=== PATIENT | male | born 1945 | race Caucasian/White ===

== ENCOUNTER → 2019-09-10 | Outpatient (CLI) | payer OTHER | LOC: M RAD 07:28 | PROVIDERS: ATTEND Internal Medicine | DX: M54.5 Low back pain (principal) ==

== ENCOUNTER → 2019-11-01 | Outpatient (CLI) | payer OTHER ==
--- NOTE | 2019-11-02 06:49 | REP ---
MRI lumbar spine without contrast: History: Low back pain. Progressively worse. No comparison lumbar imaging. Technique: Sagittal and axial T1 and T2-weighted scans are acquired in the usual fashion with and without fat saturation. Sequences include spin echo, turbo spin-echo, and STIR imaging sequences. MRI findings: There is a levoconvex scoliotic curve. A normal caliber aorta is noted although it is tortuous. There is an incompletely visualized cystic lesion in the left ovary 4.9 cm in greatest diameter. No other extra spinal abnormality is seen. The tip of the conus medullaris appears to be at T12-L1 and it is normal in appearance. There is diffuse degenerative spondylosis, fairly advanced. Sagittal images at T12-L1 demonstrate diffuse disc bulging including the foraminal segments of both discs. There is neural foraminal narrowing on the right. Disc bulging is noted at the top of the imaging field of view at T11-12 as well. At L1-L2, axial and sagittal images demonstrate moderate to severe central canal stenosis due to diffuse disc bulging, ligamentum flavum hypertrophy, facet hypertrophy, and developmentally short pedicles. The midline AP dimension of the thecal sac at the L1-2 disc level is 4.8 mm. CSF signal is effaced from the thecal sac at the L1-2 disc level. There is neural foraminal narrowing on the right due to facet hypertrophy and disc bulging. At the L2-L3, axial and sagittal images demonstrate severe central canal stenosis present due to diffuse moderate disc bulging, osteophytic ridging, facet and ligamentum flavum hypertrophy and somewhat short pedicles developmentally. The mid line AP dimension of the thecal sac at this level is 7 mm. There is considerable [id number] narrowing of the thecal sac due to ligamentum flavum hypertrophy and facet hypertrophy. This is more pronounced on the right. There is right-sided foraminal narrowing at L2-3 as well. The cauda equina is buckled above the L2-3 disc level. At L3-L4, there is severe central canal stenosis due to large bulging posterior disc and associated osteophyte formation in combination with ligamentum flavum and facet hypertrophy. The ligamentum flavum and facet hypertrophy are more prominent on the right. CSF signal is completely effaced from the thecal sac. The AP dimension in the midline of the thecal sac is 4.5 mm. There is mild bilateral foraminal narrowing. At L4-5, there is severe central canal stenosis. This is due to posterior osteophytic ridging and disc bulging in combination with facet and ligamentum flavum hypertrophy. Midline AP dimension of the thecal sac at this level is 4.2 mm. There is bilateral foraminal narrowing, left greater than right due to facet hypertrophy and disc bulging. At L5-S1, there is moderate osteoarthritic facet hypertrophy bilaterally. Mild bilateral neural foraminal narrowing is seen. Disc bulging is seen but no central canal stenosis is noted. Impression: Advanced degenerative spondylosis. There is severe central canal stenosis at each level from L2-3 through L4-5. Moderate L1-2 central canal stenosis is noted. Multilevel neural foraminal narrowing is seen, more pronounced on the right at several levels. Electronically Signed by Chris Logan MD 11/02/2019 07:48 A
== END ==
LOC: M RAD 12:43
PROVIDERS: ATTEND Internal Medicine
DX: M54.5 Low back pain (principal)

== ENCOUNTER 2021-01-13 12:15 | Inpatient (IN) | payer MEDICARE ==
[~2021-01-13] VITALS: Ht 190.5 cm; Wt 129.4 kg
[2021-01-13 13:10] LABS: BASO # 0.1 10^3/uL (0.0-0.2); BASO % 0.3 % (0.0-1.0); HEMATOCRIT 54.6 % (42.0-52.0); HEMOGLOBIN 17.9 g/dl (13.5-17.5); LYMPH % 4.4 % (24.0-44.0); MEAN CORPUSCULAR HEMOGLOBIN 30.8 pg (27.0-33.0); MEAN CORPUSCULAR HGB CONC 32.8 g/dl (32.0-36.5); MONO # 1.4 10^3/uL (0.0-0.8); MONO % 5.9 % (2.0-8.0); NEUTROPHILS # 20.5 10^3/uL (1.5-8.5); NEUTROPHILS % 88.7 % (36.0-66.0); PLATELET COUNT, AUTOMATED 342 10^3/uL (150-450); RED BLOOD COUNT 5.81 10^6/uL (4.30-6.10); WHITE BLOOD COUNT 23.1 10^3/uL (4.0-10.0)
[2021-01-13] MEDS ORDERED: NS 1,000 ML IV ONE (13:35)
[2021-01-13] MEDS ORDERED: fentaNYL 100 MCG/2 ML INJECTION (J3010) IV PRN (13:35)
[2021-01-13] MEDS ORDERED: ONDANSETRON 4MG/2ML VIAL IV ONE (13:35)
[2021-01-13 13:39] LABS: ALBUMIN 4.3 GM/DL (3.2-5.2); ALT/SGPT 35 U/L (12-78); BILIRUBIN,DIRECT 0.3 MG/DL (0.0-0.2); BILIRUBIN,TOTAL 0.8 MG/DL (0.2-1.0); BLOOD UREA NITROGEN 40 MG/DL (7-18); CALCIUM LEVEL 9.4 MG/DL (8.8-10.2); CARBON DIOXIDE LEVEL 23 MEQ/L (21-32); CHLORIDE LEVEL 106 MEQ/L (98-107); GLOMERULAR FILTRATION RATE 57.1 (>42); GLUCOSE, FASTING 140 MG/DL (70-100); LIPASE 43 U/L (73-393); POTASSIUM SERUM 5.7 MEQ/L (3.5-5.1); SODIUM LEVEL 138 MEQ/L (136-145); TOTAL PROTEIN 8.2 GM/DL (6.4-8.2)
[2021-01-13] MEDS ORDERED: ISOVUE-370 76% 100ML VIAL As Ordered ONE (13:40)
[2021-01-13] MEDS ORDERED: PIPERACILLIN/TAZOBACTAM SOD 4.5 GM in D5W MINI-BAG PLUS 50 ML IV ONE (13:45)
--- NOTE | 2021-01-13 13:46 | REP ---
INDICATION: ABD PAIN. COMPARISON: None. TECHNIQUE: Single portable AP view of the chest was performed. FINDINGS: There are mild bibasilar parenchymal opacities representing infiltrate or fibro atelectatic change. There is blunting of the costophrenic angles representing mild pleural fluid or thickening. The heart is at the upper limits of normal in size. Mild calcification of the thoracic aorta. The mediastinal silhouette otherwise appears unremarkable. IMPRESSION: Mild bibasilar infiltrate or fibro atelectatic change. Mild bilateral pleural fluid or thickening. <Electronically signed by Fran Murray > 01/13/21 [id number]
[2021-01-13 13:57] LABS: CK-MB VALUE MASS 3.3 NG/ML (<3.6); CPK CREATINE PHOSPHOKINASE 120 U/L (39-308); MB/CK RELATIVE INDEX 2.75 (< OR =4); TROPONIN I < 0.02 NG/ML (< 0.10)
[2021-01-13] MEDS ORDERED: OMEP-218 PO (14:02)
[2021-01-13] MEDS ORDERED: TOLT2TAB12 PO (14:02)
[2021-01-13] MEDS ORDERED: FINA5TAB2 PO (14:02)
[2021-01-13] MEDS ORDERED: FURO20TA2 PO (14:02)
[2021-01-13] MEDS ORDERED: METF-839 PO (14:02)
[2021-01-13] MEDS ORDERED: MECL-86 PO (14:02)
[2021-01-13] MEDS ORDERED: HYDR-3713 PO (14:02)
[2021-01-13] MEDS ORDERED: DICL50TA2 PO (14:02)
[2021-01-13] MEDS ORDERED: D31000TA2 PO (14:02)
[2021-01-13] MEDS ORDERED: GABA-283 PO ×2 (14:02)
[2021-01-13] MEDS ORDERED: FLOM0.4C39 PO (14:02)
[2021-01-13] MEDS ORDERED: ROSU40TA4 PO (14:02)
--- NOTE | 2021-01-13 14:30 | REP ---
INDICATION: sob,chestpain. COMPARISON: None. TECHNIQUE: CT angiogram chest performed following the intravenous administration of 100 cc of Isovue 370. Sagittal and coronal reconstruction images are performed. FINDINGS: Lungs: Scattered fibrotic changes are seen bilaterally, most significantly in each lung base. There is no definite acute consolidative infiltrate. Mediastinum: No adenopathy. Pulmonary arteries: No evidence of pulmonary embolism. Rosalba: No adenopathy. Axilla: No adenopathy. Pleura: No effusion. Mild bilateral pleural thickening. Heart: Not enlarged. Thoracic aorta: No aneurysm or dissection. Visualized osseous structures: There are degenerative changes of the spine without compression deformity. IMPRESSION: No CT evidence of pulmonary embolism. No infiltrate seen. Mild bilateral fibro atelectatic changes and pleural thickening. <Electronically signed by Fran Murray > 01/13/21 [id number]
--- NOTE | 2021-01-13 14:43 | REP ---
INDICATION: ro bowel obstrct. COMPARISON: None TECHNIQUE: Standard helical technique after the intravenous administration of 100 cc Isovue 370. FINDINGS: The liver, gallbladder, and spleen are within normal limits. The pancreas is markedly fatty infiltrated. The adrenal glands are within normal limits. There are bilateral renal cysts. The abdominal aorta and para-aortic regions are within normal limits. There are multiple fluid and gas-filled dilated small bowel loops. The stomach is fluid filled and mildly distended. There is no evidence of free fluid or free air. There is an identifiable transition in the descending colon with the colon proximal to this point is fluid filled but not grossly distended. Distal to this point there is colonic collapse. There is sigmoid colon diverticulosis. Images of the pelvis obscured by bilateral hip prostheses. Marked spinal degenerative changes are noted. IMPRESSION: 1. There is a bowel obstruction the transition point of which is the proximal descending colon as described above. Neoplastic change at this level cannot be ruled out. 2. Bilateral renal cysts. 3. Gross fatty infiltration of the pancreas. 4. Other findings as described above. <Electronically signed by Henry Hastings > 01/13/21 [id number]
[2021-01-13] MEDS ORDERED: ALBUTEROL SULFATE 2.5 MG/0.5 ML INH NEB SOLN INH ONE (14:55)
[2021-01-13] MEDS ORDERED: NS 2,460 ML in IV 1 EA IV ONE (14:55)
[2021-01-13] MEDS ORDERED: methylPREDNISolone 125MG 2ML VIAL IV ONE (14:55)
[2021-01-13] MEDS ORDERED: IPRATROPIUM 0.5MG/ALBUTEROL 2.5MG INH SOL UD 3ML (DUONEB) NEB ONE (14:55)
--- NOTE | 2021-01-13 15:09 | HPEPDOC ---
[facility] Medical History & Physical Date of Admission January 13, 2021 Date of Service: January 13, 2021 Attending Physician: Eli Fong MD History and Physical CHIEF COMPLAINT: Abdominal pain HISTORY OF PRESENT ILLNESS: Patient is a 75-year-old male with PMH of diabetes, hyperlipidemia, BPH, vertigo, chronic back pain, arthritis, lower extremity swelling, peripheral neuropathy, GERD, urinary spasms who presented to [facility] ER complaining of increased abdominal pain. He states he has not had a bowel movement and has had increased abdominal pain with distention over the past 14 days. He has noticed increased amount of nausea with vomiting up to 10 times per day. His last full meal was yesterday which he states did not taste well and he could not complete. The patient also complains of increased lethargy. He denied chest pain, shortness of breath, fevers, chills, lightheadedness, recent hospitalizations, recent illnesses, recent med changes. He states to hydrate during the day. He came to the ER today for further evaluation. In the emergency room, vital signs showed blood pressure was soft at 107/73. WBC 23,000, H&H 17/54.6, potassium 5.7, lactic acid 2.2. UA positive, blood cultures collected [address] of the abdomen showed small bowel obstruction with transition point. The case was discussed with surgery. NG tube was placed to intermittent suction. It was suggested the patient be admitted under hospitalist service for small bowel obstruction, UTI, sepsis. REVIEW OF SYSTEMS: Neg except mentioned above PAST MEDICAL HISTORY: diabetes, hyperlipidemia, BPH, vertigo, chronic back pain, arthritis, lower extremity swelling, peripheral neuropathy, GERD, urinary spasms PAST SURGICAL HISTORY: hernia repair appendectomy B/l hip surgery right knee surgery FAMILY HISTORY: Did not know family well so could not provide SOCIAL HISTORY: Prior smoker 47 years one pack per day, quit 15 years ago. Denies alcohol or drug use. [facility] [place] He is a DO NOT INTUBATE/DO NOT RESUSCITATE. ALLERGIES: Please see below. HOME MEDICATIONS: Please see below. PHYSICAL EXAMINATION: VS: Please see below CONSTITUTIONAL: No acute distress, resting comfortably, AAO x 3 EYES: PERRLA, EOM intact HENT, MOUTH: Normocephalic, atraumatic, moist mucous membranes, NECK: large diameter neck, SUPPLE, no JVD, no lymphadenopathy, no carotid bruit CV: Regular rate and rhythm, S1S2 normal, no murmurs/rubs/gallops RESPIRATORY: Clear to auscultation bilaterally, no rales/rhonchi/wheezes GI:distended obese abd, tympanic, tender mostly on right upper and lower quadr ant, decreased BS positive in 4 quadrants, soft, nontender, nondistended, no rebound or guarding, no organomegaly : Deferred MUSCULOSKELETAL: Normal ROM. No cyanosis, clubbing, swelling, joint deformity, extremity edema INTEGUMENTARY: Intact, no rashes, no lesions, no erythema NEUROLOGIC: Cranial Nerves II-XII are intact, no focal deficits PSYCHIATRIC: Mood and affect are normal LABORATORY DATA: Please see below MICROBIOLOGY: BCx x 2 sets pending UCX pending Resp panel neg IMAGING: CT abd/pelvis: 1. There is a bowel obstruction the transition point of which is the proximal descending colon as described above. Neoplastic change at this level cannot be ruled out. 2. Bilateral renal cysts. 3. Gross fatty infiltration of the pancreas. 4. Other findings as described above. CTA chest: No CT evidence of pulmonary embolism. No infiltrate seen. Mild bilateral fibro atelectatic changes and pleural thickening CXR: Mild bibasilar infiltrate or fibro atelectatic change. Mild bilateral pleural fluid or thickening. ASSESSMENT: 75-year-old male with PMH of diabetes, hyperlipidemia, BPH, vertigo, chronic back pain, arthritis, lower extremity swelling, peripheral neuropathy, GERD, urinary spasms admitted under hospitalist service for small bowel obstruction, UTI, sepsis. PLAN: SBO -History of multiple abdominal surgeries, WBC 23,000, no bowel movement in 14 days -CT abdomen and pelvis above -Nothing by mouth status, IV fluids at 125 mL per hour, pain control, Zosyn, NG tube at intermittent suction, surgical consult (Dr. Lund) UTI, sepsis -WBC 23K, LA elevated, + UA -Asymptomatic -BCx and UCx pending -Abx above and await UCx results. Acute hyperkalemia -C/w treatment above -Repeat BMP later this evening -No ECG changes BPH / urinary spasms -Holding PO meds DM type II -BS stable -ISS and FS Q6H, hypoglycemic protocol Arthritis /chronic back pain -Stable -Follows with pain clinic o/p GERD -PPI DVT px -No chemical AC currently, start in the AM if no plans for surgery. Teds, SCD DISPOSITION: Admitted as acute inpatient. surgery consulted. Vital Signs Vital Signs Date Time Temp Pulse Resp B/P (MAP) Pulse Ox O2 Delivery O2 Flow Rate FiO2 01/13/21 14:22 95 21 124/83 (97) 93 Room Air 01/13/21 12:27 97.6 Laboratory Data Labs 24H Laboratory Tests 2 01/13/21 12:58: Immature Granulocyte % (Auto) 0.7, Neutrophils (%) (Auto) 88.7H, Lymphocytes (%) (Auto) 4.4L, Monocytes (%) (Auto) 5.9, Eosinophils (%) (Auto) 0.0, Basophils (%) (Auto) 0.3, Neutrophils # (Auto) 20.5H, Lymphocytes # (Auto) 1.0L, Monocytes # (Auto) 1.4H, Eosinophils # (Auto) 0.0, Basophils # (Auto) 0.1, Nucleated Red Blood Cells % (auto) 0.0, Anion Gap 9, Glomerular Filtration Rate 57.1, Calcium Level 9.4, Total Bilirubin 0.8, Direct Bilirubin 0.3H, Aspartate Amino Transf (AST/SGOT) 28, Alanine Aminotransferase (ALT/SGPT) 35, Alkaline Phosphatase 106, Total Creatine Kinase 120, Creatine Kinase MB 3.3, Creatine Kinase MB Relative Index 2.75, Troponin I < 0.02, Total Protein 8.2, Albumin 4.3, Albumin/Globulin Ratio 1.1, Lipase 43L 01/13/21 13:00: Lactic Acid Level 2.2*H 01/13/21 13:58: Urine Color YELLOW, Urine Appearance HAZY, Urine pH 5.0, Urine Specific [place] 1.034, Urine Protein 2+H, Urine Glucose (UA) NEGATIVE, Urine Ketones TRACEH, Urine Blood NEGATIVE, Urine Nitrite NEGATIVE, Urine Bilirubin 2+H, Urine Urobilinogen 4.0H, Urine Leukocyte Esterase 2+H, Urine WBC (Auto) 9H, Urine RBC (Auto) 14H, Urine Hyaline Casts (Auto) 23, Urine Bacteria (Auto) 1+H, Urine Squamous Epithelial Cells 1, Urine Amorphous Sediment SMALLH, Urine Mucus (Auto) SMALL, Urine Sperm (Auto) CBC/BMP Laboratory Tests 01/13/21 12:58 Microbiology Microbiology 01/13/21 Blood Culture, Received Pending 01/13/21 Urine Culture, Received Pending 01/13/21 Respiratory Virus Panel (PCR) (JHONNY), Received Pending 01/13/21 Blood Culture, Received Pending Home Medications Scheduled Cholecalciferol (Vitamin D3) (Vitamin D3) 1,000 Unit Tablet, 5,000 UNITS PO DAILY Diclofenac Potassium (Diclofenac Potassium) 50 Mg Tablet, 50 MG PO BID Finasteride (Finasteride) 5 Mg Tablet, 5 MG PO DAILY Furosemide (Furosemide) 20 Mg Tablet, 10 MG PO DAILY Gabapentin (Gabapentin) 400 Mg Capsule, 2,400 MG PO QHS Gabapentin (Gabapentin) 400 Mg Capsule, 1,200 MG PO QAM Meclizine HCl (Meclizine HCl) 25 Mg Tablet, 25 MG PO BID Metformin HCl (Metformin HCl) 500 Mg Tablet, 500 MG PO BID Omeprazole (Omeprazole) 20 Mg Capsule.dr, 20 MG PO DAILY Rosuvastatin Calcium (Rosuvastatin Calcium) 40 Mg Tablet, 40 MG PO DAILY Tamsulosin HCl (Flomax) 0.4 Mg Capsule, 0.4 MG PO DAILY Tolterodine Tartrate (Tolterodine Tartrate) 2 Mg Tablet, 2 MG PO BID Scheduled PRN Hydrocodone/Acetaminophen (Hydrocodone-Acetamin 5-325 mg) 1 Each Tablet, 1 TAB PO Q4H PRN for PAIN MDD 4 Allergies Coded Allergies: No Known Drug Allergies (Verified Allergy, Unknown, 01/13/21) A-FIB/CHADSVASC A-FIB History Current/History of A-Fib/PAF?: No Current PO Anticoag Therapy: No Age/Risk Factor Scoring CHADSVASC: CHADSVASC Response (Comments) Value Age Risk Factor Age >/= 75 years old 2 Gender Risk Factor Male 0 Hx of CHF No 0 Hx of HTN No 0 Hx of Stroke/TIA/or VTE No 0 Hx of Diabetes Yes 1 Hx of Vascular Disease No 0 Total 3 Treatment Treatment ordered: Other Other anticoagulant ordered: scd Eli Fong MD January 13, 2021 15:09
[2021-01-13 15:17] LABS: C REACTIVE PROTEIN QUANTITATIV 3.34 MG/DL (0.00-0.30)
[2021-01-13] MEDS: PANTOPRAZOLE 40MG VIAL (C9113 PER 1) IV SCH (16:08)
[2021-01-13] MEDS ORDERED: MORPHINE 2 MG/ML 1ML VIAL (J2270) IV PRN (16:20)
[2021-01-13] MEDS ORDERED: GLUCOSE 4GM CHEW TABLET PO PRN (16:20)
[2021-01-13] MEDS ORDERED: GLUCAGON INJ 1MG VIAL SC PRN (16:20)
[2021-01-13] MEDS ORDERED: DEXTROSE 50% 50 ML SYRINGE IV PRN (16:20)
[2021-01-13 16:44] LABS: INR 0.98; PROTHROMBIN TIME 13.2 SECONDS (12.5-14.3)
[2021-01-13 16:45] LABS: PARTIAL THROMBOPLASTIN TIME 29.1 SECONDS (24.2-38.5)
[2021-01-13 17:49] VITALS: BP 116/71
[2021-01-13] MEDS: HumaLOG INSULIN (NovoLOG) PER UNIT SC SCH ×2 (18:41→22:20)
[2021-01-13 19:11] LABS: BLOOD UREA NITROGEN 37 MG/DL (7-18); CALCIUM LEVEL 7.8 MG/DL (8.8-10.2); CARBON DIOXIDE LEVEL 25 MEQ/L (21-32); CHLORIDE LEVEL 111 MEQ/L (98-107); CREATININE FOR GFR 0.96 MG/DL (0.70-1.30); GLOMERULAR FILTRATION RATE > 60.0 (>42); GLUCOSE, FASTING 130 MG/DL (70-100); SODIUM LEVEL 143 MEQ/L (136-145)
[2021-01-13] MEDS: MORPHINE 2 MG/ML 1ML VIAL (J2270) IV PRN (20:19)
[2021-01-13 20:30] VITALS: BP 117/62
[2021-01-13] MEDS: PIPERACILLIN/TAZOBACTAM SOD 3.375 GM in D5W MINI-BAG PLUS 50 ML IV SCH (20:38)
[2021-01-13] MEDS: NS 1,000 ML IV SCH (20:38)
[2021-01-13] MEDS: DICLOFENAC EPOLAMINE 1.3 % PATCH TOP SCH (21:00)
[2021-01-14] MEDS ORDERED: ANALGESIC BALM CRM 3OZ TOP PRN (00:30)
[2021-01-14] MEDS: PIPERACILLIN/TAZOBACTAM SOD 3.375 GM in D5W MINI-BAG PLUS 50 ML IV SCH ×4 (02:01→20:13)
[2021-01-14] MEDS: MORPHINE 2 MG/ML 1ML VIAL (J2270) IV PRN ×4 (03:05→20:15)
[2021-01-14] MEDS: HumaLOG INSULIN (NovoLOG) PER UNIT SC SCH ×4 (04:20→22:20)
[2021-01-14] MEDS: NS 1,000 ML IV SCH ×3 (06:19→15:11)
[2021-01-14 06:38] VITALS: BP 145/87
[2021-01-14 06:49] LABS: HEMATOCRIT 42.9 % (42.0-52.0); MEAN CORPUSCULAR HEMOGLOBIN 30.9 pg (27.0-33.0); MEAN CORPUSCULAR HGB CONC 32.2 g/dl (32.0-36.5); PLATELET COUNT, AUTOMATED 274 10^3/uL (150-450); RED BLOOD COUNT 4.47 10^6/uL (4.30-6.10); WHITE BLOOD COUNT 14.3 10^3/uL (4.0-10.0)
[2021-01-14 06:55] LABS: HEMOGLOBIN 13.8 g/dl (13.5-17.5)
[2021-01-14 07:15] LABS: ALBUMIN 2.9 GM/DL (3.2-5.2); ALT/SGPT 25 U/L (12-78); BILIRUBIN,TOTAL 0.4 MG/DL (0.2-1.0); BLOOD UREA NITROGEN 29 MG/DL (7-18); CALCIUM LEVEL 7.5 MG/DL (8.8-10.2); CARBON DIOXIDE LEVEL 27 MEQ/L (21-32); CHLORIDE LEVEL 112 MEQ/L (98-107); CREATININE FOR GFR 0.82 MG/DL (0.70-1.30); GLOMERULAR FILTRATION RATE > 60.0 (>42); GLUCOSE, FASTING 104 MG/DL (70-100); POTASSIUM SERUM 4.2 MEQ/L (3.5-5.1); SODIUM LEVEL 143 MEQ/L (136-145); TOTAL PROTEIN 6.2 GM/DL (6.4-8.2)
[2021-01-14] MEDS: DICLOFENAC EPOLAMINE 1.3 % PATCH TOP SCH ×2 (08:27→20:13)
[2021-01-14] MEDS ORDERED: LIDOCAINE 5% (LIDODERM) PATCH TD SCH (09:00)
--- NOTE | 2021-01-14 09:38 | CR ---
CONSULTATION DATE: 01/13/2021 CHIEF COMPLAINT: Abdominal distention, nausea, and vomiting. BRIEF HISTORY OF PRESENT ILLNESS: The patient is a 75-year-old male who has never had a colonoscopy who presents with a large bowel obstruction and presents with nausea, vomiting, and no bowel movements over the last 14 days, and the nausea and vomiting about 10 times per day over the last couple of days. He is complaining of increasing lethargy and abdominal pain that has been persistent. He has lost about 40 pounds over the last few months, although feels that this was secondary to his who was hospitalized. PAST MEDICAL/SURGICAL HISTORY: 1. He has not had a colonoscopy previously. He has not had a complaint of change in bowel habits. No blood per rectum. No melanotic stools. No history of anemia. 2. Diabetes mellitus. 3. Hyperlipidemia. 4. BPH. 5. Vertigo. 6. Chronic back pain. 7. Arthritis. 8. Lower extremity swelling. 9. Peripheral neuropathy. 10. Gastroesophageal reflux disease. 11. Urinary spasms. 12. Hernia repair. 13. Appendectomy. 14. Bilateral hip surgery. 15. Right knee surgery. 16. History of smoking. PHYSICAL EXAMINATION: GENERAL: Reveals a 75-year-old male who looks his stated age. HEENT: Unremarkable. NECK: Supple without adenopathy. LUNGS: Clear anteriorly with crackles at the bases posteriorly. HEART: Regular with a few irregular beats. ABDOMEN: Distended and tympanitic. Tender mostly on the right side of his abdomen without significant guarding, rebound, or peritoneal signs, but he is tensely distended. EXTREMITIES: Warm and well-perfused. IMAGING DATA: His CT scan shows evidence of a bowel obstruction with dilated colon, as well as small bowel. His stomach is extremely dilated at this time. Elevated white count. IMPRESSION AND PLAN: Elevated white count and soft blood pressure. The patient appears to have some orthostatic and is significantly dehydrated. Some of his white blood cell count elevation and his hematocrit increase is most likely secondary to his dehydration and thus, fluid resuscitation is warranted at this time. The question obviously is whether this is infectious associated, whether this is malignant or benign etiology, whether this is ischemic related with a chronic stricture, but it does not appear to have a typical presentation of an acute ischemic episode. At this point my recommendation is nasogastric (NG) tube decompression and medical management/optimization. Obviously the best option for him would be to decompress him over the ensuring few days and hopefully he resolves this with resolution of his current event. However, if this is a malignancy then it would be unlikely to resolve and will need operative intervention. Obviously operative intervention may include a colectomy with colostomy or possibly a diverting colostomy or ileostomy. All options are on the table at this time, but given his elevated potassium and dehydration is obvious, I do feel that he needs some aggressive fluid resuscitation and NG tube decompression, we will see how he is doing in the morning, and determine our next course of action dependent on this.
--- NOTE | 2021-01-14 09:43 | IPNPDOC ---
Text Note Date of Service The patient was seen on 01/14/21. NOTE Gen. surgery. Dr. Lund The patient is a 75-year-old male who was admitted with bowel obstruction. Patient is known to have a history of multiple prior abdominal surgeries. NG tube currently in place. The patient reports a small amount of flatus and slightly decreased abdominal distention. Reports he still has some right lower quadrant discomfort. Afebrile, Heart rate 74, respiratory rate 18, blood pressure 145/87, 93% 2 L nasal cannula. Resting in bed, no acute distress. NG tube in place S1-S2 regular rate and rhythm Lungs clear to auscultation Abdomen is protuberant, distended, mild tenderness noted in the right lower quadrant. No guarding or rebound. No peritoneal signs. No edema White blood cell count 14.3, this is decreased from 23.1. Assessment/plan Bowel obstruction proximal descending colon, neoplastic change cannot be ruled out. Continue NPO Continue NG tube to LIS IVF 125ml/hr IV Zosyn Patient last received IV morphine 2 mg at 3 AM. He is requesting additional pain medication but not for abdominal pain, the patient states for back pain. The patient states he takes hydrocodone every 4 hours as needed at home for his pain and takes gabapentin 1200 mg in the morning and 2400 mg at bedtime. At 3 AM he complained of generalized pain. The patient has also discussed this with Dr. Lund. Will defer pain management to the hospitalist. Discussed this with the patient's nurse who will discuss with the patient's attending medical physician. VS,Fishbone, I+O VS, Fishbone, I+O Laboratory Tests 01/13/21 12:58 01/13/21 18:35 01/14/21 06:39 Vital Signs Date Time Temp Pulse Resp B/P (MAP) Pulse Ox O2 Delivery O2 Flow Rate FiO2 01/14/21 06:38 97.8 74 18 145/87 (106) 93 Nasal Cannula 2.0 I&O- Last 24 Hours up to 6 AM 01/14/21 05:59 Intake Total 2775 ml Output Total 1100 ml Balance 1675 ml Razia Foster January 14, 2021 09:43
[2021-01-14 14:00] VITALS: BP 130/73
[2021-01-14] MEDS: PANTOPRAZOLE 40MG VIAL (C9113 PER 1) IV SCH (15:11)
--- NOTE | 2021-01-14 17:27 | IPNPDOC ---
Date Seen The patient was seen on 01/14/21. Progress Note SUBJECTIVE: States to have had several BM this AM, passing flatus. Surgery saw before BM. Decreased abd pain, incr nausea at times. Adjusted pain meds. OBJECTIVE: PHYSICAL EXAMINATION: VS: Please see below CONSTITUTIONAL: No acute distress, resting comfortably, AAO x 3 EYES: PERRLA, EOM intact HENT, MOUTH: Normocephalic, atraumatic, moist mucous membranes, NG tube in place NECK: large diameter neck, SUPPLE, no JVD, no lymphadenopathy, no carotid bruit CV: Regular rate and rhythm, S1S2 normal, no murmurs/rubs/gallops RESPIRATORY: Clear to auscultation bilaterally, no rales/rhonchi/wheezes GI: distended obese abd, improved tenderness mostly on right upper and lower quadrant, decreased BS positive in 4 quadrants, soft, nontender, nondistended, no rebound or guarding, no organomegaly : Deferred MUSCULOSKELETAL: Normal ROM. No cyanosis, clubbing, swelling, joint deformity, extremity edema INTEGUMENTARY: Intact, no rashes, no lesions, no erythema NEUROLOGIC: Cranial Nerves II-XII are intact, no focal deficits PSYCHIATRIC: Mood and affect are normal LABORATORY DATA: Please see below MICROBIOLOGY: BCx x 2 sets: NG to date UCX pending Resp panel neg IMAGING: CT abd/pelvis: 1. There is a bowel obstruction the transition point of which is the proximal descending colon as described above. Neoplastic change at this level cannot be ruled out. 2. Bilateral renal cysts. 3. Gross fatty infiltration of the pancreas. 4. Other findings as described above. CTA chest: No CT evidence of pulmonary embolism. No infiltrate seen. Mild bilateral fibro atelectatic changes and pleural thickening CXR: Mild bibasilar infiltrate or fibro atelectatic change. Mild bilateral pleural fluid or thickening. ASSESSMENT: 75-year-old male with PMH of diabetes, hyperlipidemia, BPH, vertigo, chronic back pain, arthritis, lower extremity swelling, peripheral neuropathy, GERD, urinary spasms admitted under hospitalist service for small bowel obstruction, UTI, sepsis. PLAN: SBO -History of multiple abdominal surgeries, on chronic narcotics at home, Hx of narcotic induced constipation at home- recently prescribed med to help with this -WBC improved from 23K--> 14.3, states to have had several BM this AM, passing gas -CT abdomen and pelvis above -Per surgery: c/w NPO, IV fluids at 125 mL per hour, pain control, Zosyn, NG tube at intermittent suction, surgical consult (Dr. Lund) Arthritis /chronic back pain / some neuropathic and some not in origin -Uncontrolled today -Cannot take high dose gabapentin BID due to NPO status, watch for s/s of withdrawl -Increased morphine frequency, c/w diclofenac patch -Follows with pain clinic o/p UTI, sepsis -WBC improved, LA wnl, + UA -Asymptomatic -BCx and UCx pending -Abx above and await UCx results. Mild bibasilar infiltrate ? on CXR -procalcitonin <0.20 -not treating PNA at this time. -on abx above for Gi and Urine issue only BPH / urinary spasms -Holding PO meds DM type II -BS stable -ISS and FS Q6H, hypoglycemic protocol GERD -PPI DVT px -heparin sc Resolved issues: Acute hyperkalemia DISPOSITION: Admitted as acute inpatient. surgery following. VS, I&O, 24H, [facility] Vital Signs/I&O Vital Signs Date Time Temp Pulse Resp B/P (MAP) Pulse Ox O2 Delivery O2 Flow Rate FiO2 01/14/21 16:27 18 01/14/21 14:00 97.9 78 130/73 (92) 100 Nasal Cannula 2.0 I&O- Last 24 Hours up to 6 AM 01/14/21 06:00 Intake Total 3400 ml Output Total 1925 ml Balance 1475 ml Laboratory Data 24H LABS Laboratory Tests 2 01/13/21 18:35: Anion Gap 7L, Glomerular Filtration Rate > 60.0, Lactic Acid Followup at 4 Hours 1.3, Calcium Level 7.8#L 01/13/21 23:24: Bedside Glucose (Misc Panel) 138H 01/14/21 06:08: Bedside Glucose (Misc Panel) 102 01/14/21 06:35: Procalcitonin 0.20 01/14/21 06:39: Nucleated Red Blood Cells % (auto) 0.0, Anion Gap 4L, Glomerular Filtration Rate > 60.0, Calcium Level 7.5L, Total Bilirubin 0.4, Aspartate Amino Transf (AST/SGOT) 19, Alanine Aminotransferase (ALT/SGPT) 25, Alkaline Phosphatase 73, Total Protein 6.2#L, Albumin 2.9#L, Albumin/Globulin Ratio 0.9 01/14/21 10:01: Bedside Glucose (Misc Panel) 101 01/14/21 13:29: Lab Scanned Report Miscellaneous Lab 01/14/21 16:03: Bedside Glucose (Misc Panel) 93 CBC/BMP Laboratory Tests 01/13/21 18:35 01/14/21 06:39 Microbiology Microbiology 01/13/21 Blood Culture - Preliminary, Resulted No growth after 24 hours . All specim... 01/13/21 Urine Culture, Received Pending 01/13/21 Respiratory Virus Panel (PCR) ([facility]HONNY) - Final, Complete 01/13/21 Blood Culture - Preliminary, Resulted No growth after 24 hours . All specim... Eli Fong MD January 14, 2021 17:27
--- NOTE | 2021-01-14 20:20 | ECGEPIP ---
[facility] - ED Test Date: 2021-01-13 Pat Name: BHARATI CANTRELL Department: Room: - Gender: Male Certified Wellness Program Coordinator: LR : 1945 Requested By: Carlos Yancey Order Number: [id number] Reading MD: Eliana Gore Measurements Intervals [place] Rate: 105 P: 42 [place]: 232 QRS: 9 QRSD: 84 T: 37 QT: 326 QTc: 430 Interpretive Statements Sinus tachycardia with 1st degree AV block Nonspecific ST abnormality No prior Electronically Signed on 01-14-2021 20:19:36 EDT by Eliana Gore
[2021-01-14] MEDS ORDERED: **NOTE PATIENT COMMENT** MISC XX SCH (21:00)
[2021-01-14 22:00] VITALS: BP 129/73
[2021-01-14] MEDS: HEPARIN SOD (PORCINE) 5000UNITS/ML 1ML VIAL/SYRINGE SQ SCH (22:54)
[2021-01-15] MEDS: MORPHINE 2 MG/ML 1ML VIAL (J2270) IV PRN ×6 (00:23→23:34)
[2021-01-15] MEDS: NS 1,000 ML IV SCH ×2 (00:24→08:46)
[2021-01-15] MEDS: PIPERACILLIN/TAZOBACTAM SOD 3.375 GM in D5W MINI-BAG PLUS 50 ML IV SCH ×4 (02:38→21:34)
[2021-01-15] MEDS: HumaLOG INSULIN (NovoLOG) PER UNIT SC SCH ×4 (04:20→23:44)
[2021-01-15] MEDS: HEPARIN SOD (PORCINE) 5000UNITS/ML 1ML VIAL/SYRINGE SQ SCH ×3 (05:21→21:36)
[2021-01-15 06:00] VITALS: BP 108/71
[2021-01-15 06:56] LABS: HEMATOCRIT 42.7 % (42.0-52.0); HEMOGLOBIN 13.9 g/dl (13.5-17.5); MEAN CORPUSCULAR HGB CONC 32.6 g/dl (32.0-36.5); MEAN CORPUSCULAR VOLUME 95.1 fl (80.0-96.0); PLATELET COUNT, AUTOMATED 230 10^3/uL (150-450); RED BLOOD COUNT 4.49 10^6/uL (4.30-6.10); WHITE BLOOD COUNT 9.4 10^3/uL (4.0-10.0)
[2021-01-15 07:15] LABS: ALBUMIN 2.8 GM/DL (3.2-5.2); ALT/SGPT 25 U/L (12-78); BILIRUBIN,TOTAL 0.6 MG/DL (0.2-1.0); BLOOD UREA NITROGEN 19 MG/DL (7-18); CALCIUM LEVEL 7.9 MG/DL (8.8-10.2); CARBON DIOXIDE LEVEL 23 MEQ/L (21-32); CHLORIDE LEVEL 112 MEQ/L (98-107); CREATININE FOR GFR 0.55 MG/DL (0.70-1.30); GLOMERULAR FILTRATION RATE > 60.0 (>42); GLUCOSE, FASTING 71 MG/DL (70-100); POTASSIUM SERUM 3.5 MEQ/L (3.5-5.1); SODIUM LEVEL 142 MEQ/L (136-145); TOTAL PROTEIN 5.8 GM/DL (6.4-8.2)
[2021-01-15] MEDS: DICLOFENAC EPOLAMINE 1.3 % PATCH TOP SCH ×2 (08:46→21:37)
[2021-01-15] MEDS: D5W/0.9% SODIUM CHLORIDE 1,000 ML IV SCH ×2 (09:43→16:18)
[2021-01-15 14:00] VITALS: BP 127/62
--- NOTE | 2021-01-15 14:32 | IPNPDOC ---
Text Note Date of Service The patient was seen on 01/15/21. NOTE Patient is admitted for large bowel obstruction at the level of the splenic f lexure. Since admission has had some degree of colon decompression, has had loose bowel movements. NGT output has decreased from yesterday, has occasional burping/hiccups. Denies any abdominal pain VS stable NGT in place, about 250 mLs today abdomen is markedly round and protuberant, tympanitic to percussion, hypoactive bowel sounds. Nontender on palpation Impression and plan: large bowel obstruction at the level of splenic flexure improved but dont think fully resolved. will check axr today keep ngt today plan for possible barium enema on sunday VS,Richard, I+O VS, Mendeze, I+O Laboratory Tests 01/15/21 06:21 Vital Signs Date Time Temp Pulse Resp B/P (MAP) Pulse Ox O2 Delivery O2 Flow Rate FiO2 01/15/21 09:54 18 Room Air 01/15/21 06:00 97.5 85 108/71 (83) 91 I&O- Last 24 Hours up to 6 AM 01/15/21 06:00 Intake Total 850 ml Output Total 800 ml Balance 50 ml HU THURSTON MD January 15, 2021 14:32
--- NOTE | 2021-01-15 14:41 | REP ---
INDICATION: ffup large bowel obstruction. COMPARISON: Comparison CT study January 13, 2021.. TECHNIQUE: Two kit views of the abdomen obtained supine. FINDINGS: The abdomen remains predominantly gasless. Dilated fluid-filled loops of bowel are suggested in the flanks bilaterally. There is a small quantity of gas in the left upper quadrant. Bilateral hip arthroplasties and degenerative spondylosis changes in the lumbar spine. IMPRESSION: Bowel-gas pattern is similar to the digital cement loader view obtained as part of the the CT study January 13, 2021. Fluid distended loops of bowel persist in the abdomen. <Electronically signed by Abdulaziz Logan > 01/15/21 [id number]
[2021-01-15] MEDS: ONDANSETRON 4MG/2ML VIAL IV PRN ×2 (14:42→18:52)
[2021-01-15] MEDS: PANTOPRAZOLE 40MG VIAL (C9113 PER 1) IV SCH (16:17)
[2021-01-15] MEDS: DICLOFENAC 1% TOPICAL GEL (PATIENT'S OWN MED) TOP SCH ×2 (17:32→21:35)
--- NOTE | 2021-01-15 18:18 | IPNPDOC ---
Date Seen The patient was seen on 01/15/21. Progress Note SUBJECTIVE: Had 3 BM since yesterday ;however, no longer passing gas. Per surgery, keeping NGT today, f/u imaging. Has lower right abd pain which is slightly worsened. Restarted home diclofenac gel. Denies incr SOB, chest pain. OBJECTIVE: PHYSICAL EXAMINATION: VS: Please see below CONSTITUTIONAL: No acute distress, resting comfortably, AAO x 3 EYES: PERRLA, EOM intact HENT, MOUTH: Normocephalic, atraumatic, moist mucous membranes, NG tube in place NECK: large diameter neck, SUPPLE, no JVD, no lymphadenopathy, no carotid bruit CV: Regular rate and rhythm, S1S2 normal, no murmurs/rubs/gallops RESPIRATORY: Clear to auscultation bilaterally, no rales/rhonchi/wheezes GI: distended obese abd, tenderness mostly in RLQ, decreased BS positive in 4 quadrants, soft, no rebound, no organomegaly : Deferred MUSCULOSKELETAL: Normal ROM. No cyanosis, clubbing, swelling, joint deformity, extremity edema INTEGUMENTARY: Intact, no rashes, no lesions, no erythema NEUROLOGIC: Cranial Nerves II-XII are intact, no focal deficits PSYCHIATRIC: Mood and affect are normal LABORATORY DATA: Please see below MICROBIOLOGY: BCx x 2 sets: NG to date UCX pending Resp panel neg IMAGING: AB XR 01/15/21: Bowel-gas pattern is similar to the digital industrial relations worker view obtained as part of the the CT study January 13, 2021. Fluid distended loops of bowel persist in the abdomen. CT abd/pelvis: 1. There is a bowel obstruction the transition point of which is the proximal descending colon as described above. Neoplastic change at this level cannot be ruled out. 2. Bilateral renal cysts. 3. Gross fatty infiltration of the pancreas. 4. Other findings as described above. CTA chest: No CT evidence of pulmonary embolism. No infiltrate seen. Mild bilateral fibro atelectatic changes and pleural thickening CXR: Mild bibasilar infiltrate or fibro atelectatic change. Mild bilateral pleural fluid or thickening. ASSESSMENT: 75-year-old male with PMH of diabetes, hyperlipidemia, BPH, vertigo, chronic back pain, arthritis, lower extremity swelling, peripheral neuropathy, G ERD, urinary spasms admitted under hospitalist service for large bowel obstruction, UTI, sepsis. PLAN: Large bowel obstruction at level of splenic flexure -History of multiple abdominal surgeries, on chronic narcotics at home with hx of narcotic induced constipation at home- recently prescribed med to help with this -WBC wnl, 3 BM / 24 hr, continued RLQ abdominal pain -New abd xr above -CT abdomen and pelvis above -Per surgery: improving but not resolved. c/w NPO, IV fluids at 125 mL per hour, pain control, Zosyn, NG tube at intermittent suction, surgery following and plan for possible barium enema on 01/17/21 Arthritis /chronic back pain / some neuropathic and some not in origin -Has major pain issues outside hospital. restarted diclofenac gel from home -Cannot take high dose gabapentin BID due to NPO status, watch for s/s of withdrawl -c/w morphine frequency, c/w diclofenac patch and gel -Follows with pain clinic o/p E. faecalis UTI -WBC improved, LA wnl, + UA -Asymptomatic -BCx NG -Abx above Mild bibasilar infiltrate ? on CXR -procalcitonin <0.20 -not treating PNA at this time. -on abx above for GI and UTI only BPH / urinary spasms -Holding PO meds DM type II -BS stable -ISS and FS Q6H, hypoglycemic protocol GERD -PPI DVT px -heparin sc Resolved issues: Acute hyperkalemia DISPOSITION: Admitted as acute inpatient. Surgery following. PT: Recommend HH PT at D/C. Plan is home when medically improved. VS, I&O, 24H, Fishbone Vital Signs/I&O Vital Signs Date Time Temp Pulse Resp B/P (MAP) Pulse Ox O2 Delivery O2 Flow Rate FiO2 01/15/21 14:51 18 Room Air 01/15/21 14:00 97.6 82 127/62 (83) 93 01/15/21 06:00 I&O- Last 24 Hours up to 6 AM 01/15/21 06:00 Intake Total 850 ml Output Total 800 ml Balance 50 ml Laboratory Data 24H LABS Laboratory Tests 2 01/14/21 22:49: Bedside Glucose (Misc Panel) 82L 01/15/21 04:19: Bedside Glucose (Misc Panel) 71L 01/15/21 06:21: Nucleated Red Blood Cells % (auto) 0.0, Anion Gap 7L, Glomerular Filtration Rate > 60.0, Calcium Level 7.9L, Total Bilirubin 0.6, Aspartate Amino Transf (AST/SGOT) 24, Alanine Aminotransferase (ALT/SGPT) 25, Alkaline Phosphatase 67, Total Protein 5.8L, Albumin 2.8L, Albumin/Globulin Ratio 0.9 01/15/21 11:29: Bedside Glucose (Misc Panel) 103 01/15/21 16:47: Bedside Glucose (Misc Panel) 98 CBC/BMP Laboratory Tests 01/15/21 06:21 Microbiology Microbiology 01/13/21 Blood Culture - Preliminary, Resulted No Growth after 48 hours. All Specime... 01/13/21 Urine Culture - Final, Complete Enterococcus Faecalis 01/13/21 Respiratory Virus Panel (PCR) ([facility]) - Final, Complete 01/13/21 Blood Culture - Preliminary, Resulted No Growth after 48 hours. All Specime... Eli Fong MD January 15, 2021 18:18
[2021-01-15 22:00] VITALS: BP 110/57
[2021-01-16] VITALS (7 sets, daily range): BP systolic 101–124; BP diastolic 58–73
[2021-01-16] MEDS: D5W/0.9% SODIUM CHLORIDE 1,000 ML IV SCH ×3 (01:33→20:53)
[2021-01-16] MEDS: PIPERACILLIN/TAZOBACTAM SOD 3.375 GM in D5W MINI-BAG PLUS 50 ML IV SCH ×3 (01:33→13:25)
[2021-01-16] MEDS: MORPHINE 2 MG/ML 1ML VIAL (J2270) IV PRN ×4 (04:18→23:37)
[2021-01-16] MEDS: HEPARIN SOD (PORCINE) 5000UNITS/ML 1ML VIAL/SYRINGE SQ SCH ×3 (05:37→22:14)
[2021-01-16] MEDS: HumaLOG INSULIN (NovoLOG) PER UNIT SC SCH ×4 (05:54→23:38)
[2021-01-16 05:55] LABS: HEMATOCRIT 41.7 % (42.0-52.0); HEMOGLOBIN 13.7 g/dl (13.5-17.5); MEAN CORPUSCULAR HEMOGLOBIN 30.6 pg (27.0-33.0); MEAN CORPUSCULAR HGB CONC 32.9 g/dl (32.0-36.5); MEAN CORPUSCULAR VOLUME 93.3 fl (80.0-96.0); PLATELET COUNT, AUTOMATED 230 10^3/uL (150-450); RED BLOOD COUNT 4.47 10^6/uL (4.30-6.10)
[2021-01-16 06:21] LABS: ALBUMIN 2.8 GM/DL (3.2-5.2); ALT/SGPT 25 U/L (12-78); BILIRUBIN,TOTAL 0.4 MG/DL (0.2-1.0); BLOOD UREA NITROGEN 10 MG/DL (7-18); CALCIUM LEVEL 7.7 MG/DL (8.8-10.2); CARBON DIOXIDE LEVEL 26 MEQ/L (21-32); CHLORIDE LEVEL 111 MEQ/L (98-107); CREATININE FOR GFR 0.58 MG/DL (0.70-1.30); GLOMERULAR FILTRATION RATE > 60.0 (>42); GLUCOSE, FASTING 109 MG/DL (70-100); POTASSIUM SERUM 3.5 MEQ/L (3.5-5.1); SODIUM LEVEL 142 MEQ/L (136-145); TOTAL PROTEIN 5.8 GM/DL (6.4-8.2)
[2021-01-16] MEDS: DICLOFENAC EPOLAMINE 1.3 % PATCH TOP SCH ×2 (08:46→20:53)
[2021-01-16] MEDS: DICLOFENAC 1% TOPICAL GEL (PATIENT'S OWN MED) TOP SCH ×3 (08:46→20:53)
[2021-01-16] MEDS: ONDANSETRON 4MG/2ML VIAL IV PRN ×4 (08:47→23:37)
--- NOTE | 2021-01-16 15:15 | REP ---
INDICATION: abd pain, absent BS, perforation? COMPARISON: Comparison CT study is from January 13, 2021.. TECHNIQUE: Helical scanning is acquired and 3 mm axial images were reformatted. Coronal and sagittal MPR images were generated and reviewed. FINDINGS: Preliminary crater and packer view of the abdomen demonstrates an essentially gasless abdomen. Nasogastric tube is noted entering the left upper quadrant. Axial CT images show linear fibrosis in both lung bases. No pleural effusion is seen. No focal hepatic or splenic lesion is observed. The nasogastric terminates in the body of the stomach. There is no evidence of free intraperitoneal air. No ascites is seen. Moderate to marked fluid distention of the colon and distal small bowel is again seen similar to the prior study. The cecum is dilated measuring up to 10.7 cm. The previously noted obstructive lesion in the splenic flexure of the colon is again seen unchanged. This appears to be a circumferential focal stricture at the splenic flexure proximal to which the colon is quite dilated. Distal to this the left colon is largely empty except for a small amount of gas. There is sigmoid colon diverticulosis. The findings are quite similar to the prior scan from January 13, 2021 except that there is more fluid distention in the proximal colon and a little less fluid distention in the distal small bowel. [place] artifact is seen in the pelvis related to prosthetic hip components. There are dystrophic calcifications in the prostate. There is a cyst in the upper pole the left kidney again seen. IMPRESSION: High-grade left colonic obstruction at the level of the splenic flexure where there is a short focal stricture with some adjacent edema in the pericolonic fat. This is the lesion identified on January 13, 2021. There is more fluid distension of the of the colon proximal to this but less fluid distention of the distal small bowel when compared with the January 13, 2021 study. No evidence of free air or free fluid. Cecal diameter is 10.7 cm. <Electronically signed by Abdulaziz Logan > 01/16/21 [id number]
[2021-01-16] MEDS ORDERED: ONDANSETRON 4MG/2ML VIAL IV ONE (15:30)
[2021-01-16] MEDS ORDERED: MORPHINE 4 MG/ML 1ML VIAL/SYRINGE (J2270) IV ONE (15:30)
--- NOTE | 2021-01-16 15:32 | IPNPDOC ---
Text Note Date of Service The patient was seen on 01/16/21. NOTE I was informed by his nurse that Mr. Wallis started having severe pain at about 1 pm, was in a position, his regular dose of morphine not relieving his discomfort. I ordered a stat CT to look for perforation. No evidence for perforation, fluid but cecum dilated to 10 cms. His abdomen is markedly distended, has some LUQ and mid abdominal tenderness but no rebound, mild guarding, very tympanitic and quiet. Impression and plan: large bowel obstruction at the level of the splenic flexure. probably imprending perforation, ischemia due to dilatation. Will bring to the or for diagnostic laparoscopy. If no ischemia or perforation noted, will bring out a transverse loop colostomy. Otherwise if it looks ischemic or with perforation, will need to deal with that and/or the level of obstruction. VS,Fishbone, I+O VS, Fishbone, I+O Laboratory Tests 01/16/21 05:33 Vital Signs Date Time Temp Pulse Resp B/P (MAP) Pulse Ox O2 Delivery O2 Flow Rate FiO2 01/16/21 14:00 97.9 77 18 122/71 (88) 97 Room Air 01/15/21 06:00 I&O- Last 24 Hours up to 6 AM 01/16/21 06:00 Intake Total 2685 ml Output Total 960 ml Balance 1725 ml HU THURSTON MD January 16, 2021 15:32
[2021-01-16] MEDS: PANTOPRAZOLE 40MG VIAL (C9113 PER 1) IV SCH (16:00)
[2021-01-16] MEDS ORDERED: HYDROCORTISONE 100 MG/2 ML VIAL (J1720 PER 1) As Ordered ONE (16:20)
[2021-01-16] MEDS ORDERED: BUPIVACAINE HCL 0.25% 30ML VIAL As Ordered ONE (16:22)
[2021-01-16] MEDS ORDERED: LIDOCAINE 1% SDV 30ML VIAL As Ordered ONE (16:22)
[2021-01-16] MEDS ORDERED: LIDOCAINE 2% 100MG/5ML SDV (FOR ANES.) As Ordered ONE (16:35)
[2021-01-16] MEDS ORDERED: dexameTHASONE 4 MG/ML 1ML VIAL (J1100 PER 1MG) As Ordered ONE (16:35)
[2021-01-16] MEDS ORDERED: ROCURONIUM BROMIDE 50 MG/5 ML VIAL As Ordered ONE (16:35)
[2021-01-16] MEDS ORDERED: propofoL 200 MG/20 ML VIAL As Ordered ONE (16:35)
[2021-01-16] MEDS ORDERED: fentaNYL 100 MCG/2 ML INJECTION (J3010) As Ordered ONE (16:35)
[2021-01-16] MEDS ORDERED: ONDANSETRON 4MG/2ML VIAL As Ordered ONE (16:35)
[2021-01-16] MEDS ORDERED: MIDAZOLAM INJ 2MG/2ML VIAL (J2250 PER 1MG) As Ordered ONE (16:35)
[2021-01-16] MEDS ORDERED: HYDROmorphone HCL 2 MG/ML 1ML VIAL (J1170) As Ordered ONE (16:51)
[2021-01-16] MEDS ORDERED: SUGAMMADEX SODIUM 500 MG/5 ML VIAL (BRIDION) As Ordered ONE (16:56)
[2021-01-16] MEDS ORDERED: ACETAMINOPHEN 1000MG 100ML IV BTL (OFIRMEV) (J0131 PER 10MG) As Ordered ONE (17:11)
--- NOTE | 2021-01-16 17:44 | IPNPDOC ---
Date Seen The patient was seen on 01/16/21. Progress Note SUBJECTIVE: This AM when seen, he stated to have very large BM, improved abd pain. He then complained of sudden onset of severe pain early this afternoon. STAT CT showed no perforation but cecum was dilated to 10 cm. Taken for surgery by Dr. Arellano for diagnostic laproscopy, will see if ischemia or not. OBJECTIVE: PHYSICAL EXAMINATION: VS: Please see below CONSTITUTIONAL: No acute distress, resting comfortably, AAO x 3 EYES: PERRLA, EOM intact HENT, MOUTH: Normocephalic, atraumatic, moist mucous membranes, NG tube in place to IS NECK: large diameter neck, SUPPLE, no JVD, no lymphadenopathy, no carotid bruit CV: Regular rate and rhythm, S1S2 normal, no murmurs/rubs/gallops RESPIRATORY: Clear to auscultation bilaterally, no rales/rhonchi/wheezes GI: distended obese abd, tenderness mostly in suprapubic, RLE, decreased BS positive in 4 quadrants, soft, no rebound, no organomegaly : Deferred MUSCULOSKELETAL: Normal ROM. No cyanosis, clubbing, swelling, joint deformity, extremity edema INTEGUMENTARY: Intact, no rashes, no lesions, no erythema NEUROLOGIC: Cranial Nerves II-XII are intact, no focal deficits PSYCHIATRIC: Mood and affect are normal LABORATORY DATA: Please see below MICROBIOLOGY: BCx x 2 sets: NG to date UCX pending Resp panel neg IMAGING: CT abd/pelvis 01/16/21: High-grade left colonic obstruction at the level of the splenic flexure where there is a short focal stricture with some adjacent edema in the pericolonic fat. This is the lesion identified on January 13, 2021. There is more fluid distension of the of the colon proximal to this but less fluid distention of the distal small bowel when compared with the January 13, 2021 study. No evidence of free air or free fluid. Cecal diameter is 10.7 cm. AB XR 01/15/21: Bowel-gas pattern is similar to the digital electrical power station technician view obtained as part of the the CT study January 13, 2021. Fluid distended loops of bowel persist in the abdomen. CT abd/pelvis: 1. There is a bowel obstruction the transition point of which is the proximal descending colon as described above. Neoplastic change at this level cannot be ruled out. 2. Bilateral renal cysts. 3. Gross fatty infiltration of the pancreas. 4. Other findings as described above. CTA chest: No CT evidence of pulmonary embolism. No infiltrate seen. Mild bilateral fibro atelectatic changes and pleural thickening CXR: Mild bibasilar infiltrate or fibro atelectatic change. Mild bilateral pleural fluid or thickening. ASSESSMENT: 75-year-old male with PMH of diabetes, hyperlipidemia, BPH, vertigo, chronic back pain, arthritis, lower extremity swelling, peripheral neuropathy, GERD, urinary spasms admitted under hospitalist service for large bowel obstruction, UTI, sepsis. PLAN: Large bowel obstruction at level of splenic flexure -Taking to OR today for diagnostic laparoscopy- r/o impending perforation and i schemia -History of multiple abdominal surgeries, on chronic narcotics at home with hx of narcotic induced constipation at home- recently prescribed med to help with this -WBC wnl -Repeat CT abd/pelvis 01/16/21 above -NPO, OR, has been on Zosyn -Surgery involved Arthritis /chronic back pain / some neuropathic and some not in origin -Has major pain issues outside hospital. -Cannot take high dose gabapentin BID due to NPO status, watch for s/s of withdrawl -c/w morphine frequency, c/w diclofenac patch and gel -Follows with pain clinic o/p E. faecalis UTI -WBC improved, LA wnl, + UA -Asymptomatic -BCx NG -Abx above Mild bibasilar infiltrate ? on CXR -On RA, no s/s of respiratory distress -procalcitonin <0.20 -not treating PNA at this time. -on abx above for GI and UTI only BPH / urinary spasms -Holding PO meds DM type II -BS stable -ISS and FS Q6H, hypoglycemic protocol GERD -PPI DVT px -heparin sc Resolved issues: Acute hyperkalemia DISPOSITION: Admitted as acute inpatient. Surgery taking to OR this afternoon. PT: Recommend PT at D/C. Plan is home when medically improved. VS, I&O, 24H, Fishbone Vital Signs/I&O Vital Signs Date Time Temp Pulse Resp B/P (MAP) Pulse Ox O2 Delivery O2 Flow Rate FiO2 01/16/21 14:00 97.9 77 18 122/71 (88) 97 Room Air 01/15/21 06:00 I&O- Last 24 Hours up to 6 AM 01/16/21 06:00 Intake Total 2685 ml Output Total 960 ml Balance 1725 ml Laboratory Data 24H LABS Laboratory Tests 2 01/15/21 23:41: Bedside Glucose (Misc Panel) 109 01/16/21 05:33: Nucleated Red Blood Cells % (auto) 0.0, Anion Gap 5L, Glomerular Filtration Rate > 60.0, Calcium Level 7.7L, Total Bilirubin 0.4, Aspartate Amino Transf (AST/SGOT) 24, Alanine Aminotransferase (ALT/SGPT) 25, Alkaline Phosphatase 68, Total Protein 5.8L, Albumin 2.8L, Albumin/Globulin Ratio 0.9 01/16/21 05:38: Bedside Glucose (Misc Panel) 132H 01/16/21 12:03: Bedside Glucose (Misc Panel) 103 CBC/BMP Laboratory Tests 01/16/21 05:33 Microbiology Microbiology 01/13/21 Blood Culture - Preliminary, Resulted No Growth after 72 hours. All specime... 01/13/21 Urine Culture - Final, Complete Enterococcus Faecalis 01/13/21 Respiratory Virus Panel (PCR) ([facility]) - Final, Complete 01/13/21 Blood Culture - Preliminary, Resulted No Growth after 72 hours. All specime... Eli Fong MD January 16, 2021 17:44
[2021-01-16] MEDS ORDERED: KETOROLAC 60MG 2ML VIAL As Ordered ONE (17:48)
[2021-01-16] MEDS ORDERED: oxyCODONE 5MG TAB PO PRN (18:10)
[2021-01-16] MEDS ORDERED: fentaNYL 100 MCG/2 ML INJECTION (J3010) IV PRN (18:10)
[2021-01-16] MEDS ORDERED: LR 1,000 ML IV SCH (18:10)
[2021-01-16] MEDS ORDERED: ONDANSETRON 4MG/2ML VIAL IV PRN (18:10)
[2021-01-16] MEDS ORDERED: METOCLOPRAMIDE INJ 10MG/2ML VIAL (J2765 PER 1) IV PRN (18:10)
[2021-01-16] MEDS: HYDROMORPHONE HCL 0.5 MG/ 0.5 ML SYRINGE (J1170 PER 1) IV PRN ×2 (18:16→18:45)
[2021-01-16] MEDS ORDERED: PROMETHAZINE INJ 25 MG/ML VIAL (J2550) IV ONE (19:40)
[2021-01-16] MEDS: CIPROFLOXACIN 400 MG in IV 1 EA IV SCH (20:53)
[2021-01-16] MEDS: AMPICILLIN SOD/SULBACTAM SOD 3 GM in D5W MINI-BAG PLUS 100 ML IV SCH (22:14)
[2021-01-17 00:30] VITALS: BP 101/69
[2021-01-17] MEDS ORDERED: MORPHINE 2 MG/ML 1ML VIAL (J2270) IV PRN (02:30)
[2021-01-17] MEDS: MORPHINE 2 MG/ML 1ML VIAL (J2270) IV PRN ×7 (02:53→19:42)
[2021-01-17 04:30] VITALS: BP 104/69
[2021-01-17] MEDS: AMPICILLIN SOD/SULBACTAM SOD 3 GM in D5W MINI-BAG PLUS 100 ML IV SCH ×4 (05:03→22:13)
[2021-01-17 06:00] VITALS: BP 106/69
[2021-01-17] MEDS: HumaLOG INSULIN (NovoLOG) PER UNIT SC SCH ×3 (06:00→17:38)
[2021-01-17] MEDS: HEPARIN SOD (PORCINE) 5000UNITS/ML 1ML VIAL/SYRINGE SQ SCH ×3 (06:08→22:13)
[2021-01-17] MEDS: ONDANSETRON 4MG/2ML VIAL IV PRN (06:08)
[2021-01-17 07:42] LABS: HEMATOCRIT 37.3 % (42.0-52.0); HEMOGLOBIN 12.2 g/dl (13.5-17.5); MEAN CORPUSCULAR HEMOGLOBIN 30.7 pg (27.0-33.0); MEAN CORPUSCULAR HGB CONC 32.7 g/dl (32.0-36.5); MEAN CORPUSCULAR VOLUME 93.7 fl (80.0-96.0); PLATELET COUNT, AUTOMATED 248 10^3/uL (150-450); RED BLOOD COUNT 3.98 10^6/uL (4.30-6.10); WHITE BLOOD COUNT 12.5 10^3/uL (4.0-10.0)
[2021-01-17] MEDS: D5W/0.9% SODIUM CHLORIDE 1,000 ML IV SCH ×3 (07:58→17:11)
[2021-01-17] MEDS: CIPROFLOXACIN 400 MG in IV 1 EA IV SCH (07:58)
[2021-01-17] MEDS: DICLOFENAC EPOLAMINE 1.3 % PATCH TOP SCH ×3 (07:59→21:00)
[2021-01-17] MEDS: DICLOFENAC 1% TOPICAL GEL (PATIENT'S OWN MED) TOP SCH ×3 (07:59→22:13)
[2021-01-17 08:07] LABS: ALBUMIN 2.5 GM/DL (3.2-5.2); ALT/SGPT 23 U/L (12-78); BILIRUBIN,TOTAL 0.5 MG/DL (0.2-1.0); BLOOD UREA NITROGEN 9 MG/DL (7-18); CALCIUM LEVEL 7.7 MG/DL (8.8-10.2); CARBON DIOXIDE LEVEL 28 MEQ/L (21-32); CHLORIDE LEVEL 110 MEQ/L (98-107); CREATININE FOR GFR 0.67 MG/DL (0.70-1.30); GLOMERULAR FILTRATION RATE > 60.0 (>42); GLUCOSE, FASTING 127 MG/DL (70-100); POTASSIUM SERUM 3.1 MEQ/L (3.5-5.1); SODIUM LEVEL 143 MEQ/L (136-145); TOTAL PROTEIN 5.1 GM/DL (6.4-8.2)
[2021-01-17 10:00] VITALS: BP 107/66
[2021-01-17] MEDS: KCL 10MEQ/100ML SWI (KRUN) 10 MEQ in IV 1 EA IV SCH ×5 (11:00→13:03)
--- NOTE | 2021-01-17 11:33 | IPNPDOC ---
Text Note Date of Service The patient was seen on 01/17/21. NOTE Gen. surgery. Dr. Lund The patient is a 75-year-old male who was admitted with large bowel obstruction at the level of the splenic flexure status post diagnostic laparoscopy with transverse loop colostomy 01/16/[address] Thurston. NG tube currently in place. Afebrile, VSS Resting in bed, no acute distress. NG tube in place S1-S2 regular rate and rhythm Lungs clear to auscultation Abdomen with decreased distention noted today. Ostomy is pink but there is some swelling noted. There is brown liquid noted in the colostomy bag. No edema White blood cell count 12.5, hemoglobin 12.2, platelets 248 Potassium 3.1, supplement ordered. I/L 2260/2710, -450. Stool 2075 mL NG tube 90 mL Assessment/plan Large bowel obstruction at the level of the splenic flexure status post diagnostic laparoscopy with transverse loop colostomy 01/16/[address] Thurston. Patient is reviewed and examined as per Dr. Thurston Continue NPO sips/chips. Plan to discontinue NG tube today as per Dr. Thurston. IVF 125ml/hr IV Unasyn/Cipro Tentative plan discussed with the patient as per Dr. Thurston. Possibly consider colonoscopy in 3-4 weeks, in 2 months possibly consider colectomy and reversal of colostomy. This is reviewed and discussed with the patient. monitor VS,Fishbone, I+O VS, Fishbone, I+O Laboratory Tests 01/17/21 07:19 Vital Signs Date Time Temp Pulse Resp B/P (MAP) Pulse Ox O2 Delivery O2 Flow Rate FiO2 01/17/21 11:14 20 01/17/21 10:00 98.4 85 107/66 (80) 93 Room Air 01/17/21 04:30 2.0 l I&O- Last 24 Hours up to 6 AM 01/17/21 06:00 Intake Total 2210 ml Output Total 3370 ml Balance -1160 ml Razia Foster January 17, 2021 11:33 HU THURSTON MD January 21, 2021 09:57
[2021-01-17 14:00] VITALS: BP 107/64
[2021-01-17] MEDS: PANTOPRAZOLE 40MG VIAL (C9113 PER 1) IV SCH ×2 (17:10→22:12)
[2021-01-17 18:00] VITALS: BP 106/64
[2021-01-17] MEDS ORDERED: POTASSIUM CHLORIDE 10 MEQ SR TABLET PO ONE ×2 (18:00→21:45)
--- NOTE | 2021-01-17 18:07 | IPNPDOC ---
Date Seen The patient was seen on 01/17/21. Progress Note SUBJECTIVE: POD 1 today. Pain chronic and acute, confirming with surgery if patient can take pills. No acute events overnight. OBJECTIVE: PHYSICAL EXAMINATION: VS: Please see below CONSTITUTIONAL: No acute distress, resting comfortably, AAO x 3 EYES: PERRLA, EOM intact HENT, MOUTH: Normocephalic, atraumatic, moist mucous membranes, NG tube in place NECK: large diameter neck, SUPPLE, no JVD, no lymphadenopathy, no carotid bruit CV: Regular rate and rhythm, S1S2 normal, no murmurs/rubs/gallops RESPIRATORY: Clear to auscultation bilaterally, no rales/rhonchi/wheezes GI: Colostomy bag in place, tender to palpation of right quadrant, distended obese abd,improving BS positive in 4 quadrants, no rebound, no organomegaly : Deferred MUSCULOSKELETAL: Normal ROM. No cyanosis, clubbing, swelling, joint deformity, extremity edema INTEGUMENTARY: Intact, no rashes, no lesions, no erythema NEUROLOGIC: Cranial Nerves II-XII are intact, no focal deficits PSYCHIATRIC: Mood and affect are normal LABORATORY DATA: Please see below MICROBIOLOGY: BCx x 2 sets: NG to date UCX pending Resp panel neg IMAGING: CT abd/pelvis 01/16/21: High-grade left colonic obstruction at the level of the splenic flexure where there is a short focal stricture with some adjacent edema in the pericolonic fat. This is the lesion identified on January 13, 2021. There is more fluid distension of the of the colon proximal to this but less fluid distention of the distal small bowel when compared with the January 13, 2021 study. No evidence of free air or free fluid. Cecal diameter is 10.7 cm. AB XR 01/15/21: Bowel-gas pattern is similar to the digital skin care technician view obtained as part of the the CT study January 13, 2021. Fluid distended loops of bowel persist in the abdomen. CT abd/pelvis: 1. There is a bowel obstruction the transition point of which is the proximal descending colon as described above. Neoplastic change at this level cannot be ruled out. 2. Bilateral renal cysts. 3. Gross fatty infiltration of the pancreas. 4. Other findings as described above. CTA chest: No CT evidence of pulmonary embolism. No infiltrate seen. Mild bilateral fibro atelectatic changes and pleural thickening CXR: Mild bibasilar infiltrate or fibro atelectatic change. Mild bilateral pleural fluid or thickening. ASSESSMENT: 75-year-old male with PMH of diabetes, hyperlipidemia, BPH, vertigo, chronic back pain, arthritis, lower extremity swelling, peripheral neuropathy, GERD, urinary spasms admitted under hospitalist service for large bowel obstruction, UTI, sepsis. PLAN: Large bowel obstruction at level of splenic flexure -POD 1 diagnostic laparoscopy with transverse loop colostomy bag placement -Distention decreased but tenderness persists in RLQ -passing gas and fecal material through colostomy without issue -History of multiple abdominal surgeries, on chronic narcotics at home with hx of narcotic induced constipation at home- recently prescribed med to help with this -WBC wnl -Repeat CT abd/pelvis 01/16/21 above -c/w Unasyn, IVFs, confirming CL vs. NPO diet with surgery. -Surgery involved Arthritis /chronic back pain / some neuropathic and some not in origin -Has major pain issues outside hospital. -Can resume high dose gabapentin BID and other meds if advances diet -c/w morphine frequency, c/w diclofenac patch and gel -Follows with pain clinic o/p E. faecalis UTI - treated -WBC improved, LA wnl, + UA -BCx NG -Stopped cipro as patient is asymptomatic Mild bibasilar infiltrate ? on CXR -On RA, no s/s of respiratory distress -procalcitonin <0.20 -not treating PNA at this time. BPH / urinary spasms -Resume home Po meds if taking clears or fluids DM type II -BS stable -ISS and FS Q6H, hypoglycemic protocol GERD -PPI DVT px -heparin sc Resolved issues: Acute hyperkalemia DISPOSITION: Admitted as acute inpatient. PT: Recommend HH PT at D/C. Plan is home when medically improved. VS, I&O, 24H, Fishbone Vital Signs/I&O Vital Signs Date Time Temp Pulse Resp B/P (MAP) Pulse Ox O2 Delivery O2 Flow Rate FiO2 01/17/21 17:38 18 01/17/21 14:00 97.6 91 107/64 (78) 93 Room Air 01/17/21 04:30 2.0 I&O- Last 24 Hours up to 6 AM 01/17/21 06:00 Intake Total 2210 ml Output Total 3370 ml Balance -1160 ml Laboratory Data 24H LABS Laboratory Tests 2 01/16/21 21:12: Bedside Glucose (Misc Panel) 130H 01/16/21 23:34: Bedside Glucose (Misc Panel) 164H 01/17/21 06:04: Bedside Glucose (Misc Panel) 148H 01/17/21 07:19: Nucleated Red Blood Cells % (auto) 0.0, Anion Gap 5L, Glomerular Filtration Rate > 60.0, Calcium Level 7.7L, Total Bilirubin 0.5, Aspartate Amino Transf (AST/SGOT) 18, Alanine Aminotransferase (ALT/SGPT) 23, Alkaline Phosphatase 57, Total Protein 5.1L, Albumin 2.5L, Albumin/Globulin Ratio 1.0 01/17/21 11:23: Bedside Glucose (Misc Panel) 158H 01/17/21 16:29: Bedside Glucose (Misc Panel) 148H CBC/BMP Laboratory Tests 01/17/21 07:19 Microbiology Microbiology 01/13/21 Blood Culture - Preliminary, Resulted No Growth after 72 hours. All specime... 01/13/21 Urine Culture - Final, Complete Enterococcus Faecalis 01/13/21 Respiratory Virus Panel (PCR) ([facility]) - Final, Complete 01/13/21 Blood Culture - Preliminary, Resulted No Growth after 72 hours. All specime... Eli Fong MD January 17, 2021 18:07
[2021-01-17] MEDS: TOLTERODINE (DETROL) 2 MG TAB PO SCH (22:11)
[2021-01-17] MEDS: MECLIZINE 25 MG TABLET PO SCH (22:11)
[2021-01-17] MEDS: GABAPENTIN 400MG CAP PO SCH (22:12)
[2021-01-18] MEDS: D5W/0.9% SODIUM CHLORIDE 1,000 ML IV SCH ×2 (02:37→10:53)
[2021-01-18] MEDS: AMPICILLIN SOD/SULBACTAM SOD 3 GM in D5W MINI-BAG PLUS 100 ML IV SCH ×4 (04:52→22:26)
[2021-01-18 06:00] VITALS: BP 118/62
[2021-01-18] MEDS: HumaLOG INSULIN (NovoLOG) PER UNIT SC SCH ×5 (06:00→20:36)
[2021-01-18] MEDS: HEPARIN SOD (PORCINE) 5000UNITS/ML 1ML VIAL/SYRINGE SQ SCH ×3 (06:21→22:26)
[2021-01-18 06:24] LABS: HEMATOCRIT 31.4 % (42.0-52.0); HEMOGLOBIN 10.4 g/dl (13.5-17.5); MEAN CORPUSCULAR HEMOGLOBIN 30.8 pg (27.0-33.0); MEAN CORPUSCULAR HGB CONC 33.1 g/dl (32.0-36.5); MEAN CORPUSCULAR VOLUME 92.9 fl (80.0-96.0); PLATELET COUNT, AUTOMATED 209 10^3/uL (150-450); RED BLOOD COUNT 3.38 10^6/uL (4.30-6.10); WHITE BLOOD COUNT 9.4 10^3/uL (4.0-10.0)
[2021-01-18 07:00] LABS: BLOOD UREA NITROGEN 4 MG/DL (7-18); CALCIUM LEVEL 7.8 MG/DL (8.8-10.2); CARBON DIOXIDE LEVEL 28 MEQ/L (21-32); CHLORIDE LEVEL 109 MEQ/L (98-107); CREATININE FOR GFR 0.55 MG/DL (0.70-1.30); GLOMERULAR FILTRATION RATE > 60.0 (>42); GLUCOSE, FASTING 125 MG/DL (70-100); POTASSIUM SERUM 2.6 MEQ/L (3.5-5.1); SODIUM LEVEL 142 MEQ/L (136-145)
[2021-01-18] MEDS: KCL 10MEQ/100ML SWI (KRUN) 10 MEQ in IV 1 EA IV SCH ×8 (08:17→23:00)
[2021-01-18] MEDS: GABAPENTIN 400MG CAP PO SCH ×2 (08:26→20:32)
[2021-01-18] MEDS: TAMSULOSIN 0.4 MG CAP PO SCH (08:26)
[2021-01-18] MEDS: ROSUVASTATIN 10 MG TAB (CRESTOR) PO SCH (08:26)
[2021-01-18] MEDS: FINASTERIDE 5 MG TAB PO SCH (08:26)
[2021-01-18] MEDS: MECLIZINE 25 MG TABLET PO SCH ×2 (08:26→20:49)
[2021-01-18] MEDS ORDERED: FUROSEMIDE 10MG PER 1/2 TABLET PO SCH (09:00)
[2021-01-18] MEDS: DICLOFENAC EPOLAMINE 1.3 % PATCH TOP SCH ×2 (09:00→20:33)
[2021-01-18] MEDS ORDERED: OMEPRAZOLE 20 MG CAP PO SCH (09:00)
[2021-01-18] MEDS ORDERED: VITAMIN D 1,000 INTERNATIONAL UNITS TABLET PO SCH (09:00)
[2021-01-18 10:00] VITALS: BP 109/61
--- NOTE | 2021-01-18 10:36 | IPN ---
PROGRESS NOTE DATE: 01/18/2021 SUBJECTIVE: Giacomo is [facility]. He is hypokalemic today receiving both IV saline and furosemide so we are correcting that. Attempts at intravenous potassium yesterday led to phlebitic symptoms and they were discontinued. However, oral replacement has not been successful due to his diarrhea. He has mild abdominal pain. No shortness of breath, chest pain, nausea, or vomiting. OBJECTIVE: VITAL SIGNS: Afebrile. Vital signs stable at 118/62. GENERAL: He is alert and conversant in no distress. LUNGS: Clear. HEART: Regular rate and rhythm. ABDOMEN: Soft and nondistended with no masses. Mildly tender. EXTREMITIES: No peripheral edema. LABORATORY DATA: Sodium 142, potassium 2.6, BUN 4, creatinine 0.5, glucose 125. White count 9.4, hemoglobin 10.4, platelets 209,000. IMPRESSION AND PLAN: 1. Hypokalemia. Intravenous (IV) potassium runs have been ordered, as well as supplemental oral potassium. 2. Large bowel obstruction. Postop day #2 and surgery is following. 3. Enterococcus (E.) faecalis urinary tract infection off antibiotics currently asymptomatic. 4. Bibasilar infiltrates on chest x-ray. No symptoms consistent with pneumonia. Low procalcitonin so not currently on antibiotic treatment directed towards this. 5. History of BPH. Resume his home medications prior to discharge. 6. Diabetes. Continue sliding scale insulin coverage.
[2021-01-18] MEDS: TOLTERODINE (DETROL) 2 MG TAB PO SCH ×2 (10:52→20:35)
[2021-01-18] MEDS: DICLOFENAC 1% TOPICAL GEL (PATIENT'S OWN MED) TOP SCH ×3 (10:53→20:35)
[2021-01-18] MEDS: MORPHINE 2 MG/ML 1ML VIAL (J2270) IV PRN ×3 (11:41→22:25)
[2021-01-18 14:00] VITALS: BP 132/70
[2021-01-18 17:29] LABS: BLOOD UREA NITROGEN 5 MG/DL (7-18); CALCIUM LEVEL 8.5 MG/DL (8.8-10.2); CARBON DIOXIDE LEVEL 28 MEQ/L (21-32); CHLORIDE LEVEL 109 MEQ/L (98-107); CREATININE FOR GFR 0.71 MG/DL (0.70-1.30); GLOMERULAR FILTRATION RATE > 60.0 (>42); GLUCOSE, FASTING 99 MG/DL (70-100); MAGNESIUM LEVEL 1.7 MG/DL (1.8-2.4); POTASSIUM SERUM 2.9 MEQ/L (3.5-5.1); SODIUM LEVEL 142 MEQ/L (136-145)
[2021-01-18 18:00] VITALS: BP 126/67
[2021-01-18] MEDS: KCL 20MEQ IN D5/NS 1000ML 1,000 ML IV SCH (20:32)
[2021-01-18] MEDS: PANTOPRAZOLE 40MG VIAL (C9113 PER 1) IV SCH (20:34)
[2021-01-18 22:00] VITALS: BP 122/67
[2021-01-19] MEDS: KCL 10MEQ/100ML SWI (KRUN) 10 MEQ in IV 1 EA IV SCH ×4 (01:00→01:28)
[2021-01-19] MEDS: AMPICILLIN SOD/SULBACTAM SOD 3 GM in D5W MINI-BAG PLUS 100 ML IV SCH ×4 (03:46→22:16)
[2021-01-19] MEDS: MORPHINE 2 MG/ML 1ML VIAL (J2270) IV PRN ×4 (03:47→22:15)
[2021-01-19] MEDS ORDERED: POTASSIUM CHLORIDE 10% LIQ 20 MEQ/15 ML UDC PO ONE ×2 (03:55→14:10)
[2021-01-19 04:58] LABS: HEMATOCRIT 29.6 % (42.0-52.0); HEMOGLOBIN 9.7 g/dl (13.5-17.5); MEAN CORPUSCULAR HEMOGLOBIN 31.1 pg (27.0-33.0); MEAN CORPUSCULAR HGB CONC 32.8 g/dl (32.0-36.5); MEAN CORPUSCULAR VOLUME 94.9 fl (80.0-96.0); PLATELET COUNT, AUTOMATED 218 10^3/uL (150-450); RED BLOOD COUNT 3.12 10^6/uL (4.30-6.10); WHITE BLOOD COUNT 8.8 10^3/uL (4.0-10.0)
[2021-01-19 05:28] LABS: BLOOD UREA NITROGEN 5 MG/DL (7-18); CALCIUM LEVEL 8.4 MG/DL (8.8-10.2); CARBON DIOXIDE LEVEL 32 MEQ/L (21-32); CHLORIDE LEVEL 111 MEQ/L (98-107); CREATININE FOR GFR 0.59 MG/DL (0.70-1.30); GLOMERULAR FILTRATION RATE > 60.0 (>42); GLUCOSE, FASTING 119 MG/DL (70-100); MAGNESIUM LEVEL 1.7 MG/DL (1.8-2.4); POTASSIUM SERUM 3.2 MEQ/L (3.5-5.1); SODIUM LEVEL 145 MEQ/L (136-145)
[2021-01-19] MEDS: KCL 20MEQ IN D5/NS 1000ML 1,000 ML IV SCH ×3 (05:40→20:32)
[2021-01-19] MEDS: HEPARIN SOD (PORCINE) 5000UNITS/ML 1ML VIAL/SYRINGE SQ SCH ×3 (05:40→22:16)
[2021-01-19 06:00] VITALS: BP 117/61
--- NOTE | 2021-01-19 07:45 | IPNPDOC ---
Text Note Date of Service The patient was seen on 01/18/21. NOTE Patient seen and examined. She he is laying down in bed. Looks comfortable. I have started him on soft diet today and tolerated lunch. He is getting ready to eat dinner at the time that I saw him. He denies any nausea. The right lower quadrant tenderness is improved. His loop colostomy swollen but functioning Examination Patient looks much more comfortable Abdominal distention is markedly done down though he still is protuberant. Mildly distended at this point. Prior right lower quadrant tenderness seems to also have improved. He has a right upper quadrant colostomy this is a transverse colostomy. Both limbs were swollen but otherwise viable. No bleeding. He has liquid brown stool in the bag with gas. 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 Status post transverse colostomy today for his stools. He is clinically improved. Continue him on soft diet. He possibly can go home after we set him up for outpatient support for the colostomy as well as teaching him how to take care of the colostomy. I will plan for interval colonoscopy about 2-3 week to look for the etiology of the obstruction. I suspect this would be malignancy, unlikely diverticular given the high a location at the splenic flex ure. Tentatively in about 2-3 months time bring him back for left colectomy and reversal of the transverse colostomy. VS,Richard, I+O VS, Mendeze, I+O Laboratory Tests 01/18/21 16:47 01/19/21 04:48 Vital Signs Date Time Temp Pulse Resp B/P (MAP) Pulse Ox O2 Delivery O2 Flow Rate FiO2 01/19/21 06:00 96.7 75 18 117/61 (79) 93 Room Air 01/18/21 22:00 2.0 I&O- Last 24 Hours up to 6 AM 01/19/21 06:00 Intake Total 5065 ml Output Total 3500 ml Balance 1565 ml HU THURSTON MD January 19, 2021 07:44
[2021-01-19] MEDS: DICLOFENAC EPOLAMINE 1.3 % PATCH TOP SCH ×2 (09:00→20:19)
[2021-01-19] MEDS: ONDANSETRON 4MG/2ML VIAL IV PRN ×2 (09:07→17:29)
[2021-01-19] MEDS: ROSUVASTATIN 10 MG TAB (CRESTOR) PO SCH (09:08)
[2021-01-19] MEDS: GABAPENTIN 400MG CAP PO SCH ×2 (09:08→20:29)
[2021-01-19] MEDS: MECLIZINE 25 MG TABLET PO SCH ×2 (09:08→20:29)
[2021-01-19] MEDS: TAMSULOSIN 0.4 MG CAP PO SCH (09:09)
[2021-01-19] MEDS: FINASTERIDE 5 MG TAB PO SCH (09:09)
[2021-01-19] MEDS: DICLOFENAC 1% TOPICAL GEL (PATIENT'S OWN MED) TOP SCH ×3 (09:10→20:30)
[2021-01-19] MEDS: HumaLOG INSULIN (NovoLOG) PER UNIT SC SCH ×4 (09:11→21:00)
--- NOTE | 2021-01-19 09:53 | IPNPDOC ---
Text Note Date of Service The patient was seen on 01/19/21. NOTE Gen. surgery. Dr. Lund The patient is a 75-year-old male who was admitted with large bowel obstruction at the level of the splenic flexure status post diagnostic laparoscopy with transverse loop colostomy 01/16/[address] Arellano. Afebrile, VSS Resting in bed, no acute distress. S1-S2 regular rate and rhythm Lungs clear to auscultation Abdomen protuberant but decreased distention. Ostomy is pink but there is still some swelling noted. There is brown liquid noted in the colostomy bag. 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 Status post diagnostic laparoscopy with transverse loop colostomy 01/16/[address] Arellano. Patient is reviewed and examined as per Dr. Arellano Soft diet Tentative plan discussed with the patient as per Dr. Arellano. Tentatively plan to proceed with colonoscopy in 2-3 weeks to look for etiology of obstruction. In 2-3 months possibly consider left colectomy and reversal of colostomy. This has been reviewed and discussed with the patient as per Dr. Arellano. Continue colostomy teaching and arrange home care. The patient is okay for discharge from surgical standpoint as per Dr. Arellano when medically cleared. This is relayed to the hospitalist. VS,Fishbone, I+O VS, Fishbone, I+O Laboratory Tests 01/18/21 16:47 01/19/21 04:48 Vital Signs Date Time Temp Pulse Resp B/P (MAP) Pulse Ox O2 Delivery O2 Flow Rate FiO2 01/19/21 09:08 18 Room Air 01/19/21 06:00 96.7 75 117/61 (79) 93 01/18/21 22:00 2.0 I&O- Last 24 Hours up to 6 AM 01/19/21 05:59 Intake Total 4912.5 ml Output Total 4100 ml Balance 812.5 ml Razia Foster January 19, 2021 09:53
[2021-01-19] MEDS: TOLTERODINE (DETROL) 2 MG TAB PO SCH ×2 (10:32→20:29)
[2021-01-19] MEDS: METAMUCIL (PSYLLIUM) PACKET PO SCH ×2 (12:32→20:29)
[2021-01-19 13:43] LABS: BLOOD UREA NITROGEN 3 MG/DL (7-18); CALCIUM LEVEL 7.8 MG/DL (8.8-10.2); CARBON DIOXIDE LEVEL 25 MEQ/L (21-32); CHLORIDE LEVEL 112 MEQ/L (98-107); GLOMERULAR FILTRATION RATE > 60.0 (>42); GLUCOSE, FASTING 83 MG/DL (70-100); POTASSIUM SERUM 3.3 MEQ/L (3.5-5.1); SODIUM LEVEL 145 MEQ/L (136-145)
[2021-01-19 14:00] VITALS: BP 111/60
--- NOTE | 2021-01-19 15:17 | IPNPDOC ---
Text Note Date of Service The patient was seen on 01/19/21. NOTE Hospitalist Progress Note Subjective: Patient is reclined in bed when I entered the room. He seems to be in fairly good spirits. He is tolerating his diet. He is now having some soft stool coming out into the colostomy bag. I have been tested base with surgery, and they feel that he is safe for discharge when medically cleared. His potassium continues to be low, will recheck another potassium this afternoon and if need be will supplement. It is hopeful that if his stool slowed down, and then he will be doing better. He will also need to be cleared by PT as well. Objective: General: Awake, alert, oriented 3. Not in any acute distress. HEENT: Head normocephalic, atraumatic, sclera are nonicteric. Hearing is grossly intact to conversation. Respiratory: Clear to auscultation bilaterally with no wheezes, rales, or rhonchi. Cardiovascular: Regular rate and rhythm, with no rubs, gallops, or murmur. Abdomen: Soft, nontender, nondistended, no hepatosplenomegaly appreciated. Bowel sounds present. Colostomy bag present with mixture of soft and liquid stools. Extremities: 2+ pulses in the radial and dorsalis pedis bilaterally. No evidence of clubbing or cyanosis. Assessment: Hypokalemia Large bowel obstruction status post colostomy, with question of malignant mass in left colon Enterococcus faecalis urinary tract infection, antibiotics have now been discontinued Bibasilar infiltrates on chest x-ray, no clinical symptoms of pneumonia History of BPH Diabetes mellitus type 2 Plan: And despite discharge in the next 1-2 days. This would depend on his potassium at this point. Additionally, input from PT would be greatly appreciated to know whether or not he would need assistance at home. VS,Fishbone, I+O VS, Fishbone, I+O Laboratory Tests 01/18/21 16:47 01/19/21 04:48 01/19/21 12:52 Vital Signs Date Time Temp Pulse Resp B/P (MAP) Pulse Ox O2 Delivery O2 Flow Rate FiO2 01/19/21 09:18 18 Room Air 01/19/21 06:00 96.7 75 117/61 (79) 93 01/18/21 22:00 2.0 I&O- Last 24 Hours up to 6 AM 01/19/21 06:00 Intake Total 5065 ml Output Total 3500 ml Balance 1565 ml MARILIA HEMPHILL DO January 19, 2021 15:17
[2021-01-19] MEDS: PANTOPRAZOLE 40MG VIAL (C9113 PER 1) IV SCH (20:30)
[2021-01-19 22:00] VITALS: BP 122/64
[2021-01-20] MEDS: KCL 20MEQ IN D5/NS 1000ML 1,000 ML IV SCH (04:11)
[2021-01-20] MEDS: AMPICILLIN SOD/SULBACTAM SOD 3 GM in D5W MINI-BAG PLUS 100 ML IV SCH ×4 (04:11→22:24)
[2021-01-20] MEDS: HEPARIN SOD (PORCINE) 5000UNITS/ML 1ML VIAL/SYRINGE SQ SCH ×3 (05:17→22:24)
[2021-01-20 06:00] VITALS: BP 124/56
[2021-01-20 06:29] LABS: HEMATOCRIT 32.5 % (42.0-52.0); HEMOGLOBIN 10.5 g/dl (13.5-17.5); MEAN CORPUSCULAR HGB CONC 32.3 g/dl (32.0-36.5); MEAN CORPUSCULAR VOLUME 95.9 fl (80.0-96.0); PLATELET COUNT, AUTOMATED 261 10^3/uL (150-450); RED BLOOD COUNT 3.39 10^6/uL (4.30-6.10); WHITE BLOOD COUNT 9.1 10^3/uL (4.0-10.0)
[2021-01-20 06:46] LABS: BLOOD UREA NITROGEN 3 MG/DL (7-18); CALCIUM LEVEL 7.7 MG/DL (8.8-10.2); CARBON DIOXIDE LEVEL 27 MEQ/L (21-32); CHLORIDE LEVEL 112 MEQ/L (98-107); CREATININE FOR GFR 0.57 MG/DL (0.70-1.30); GLOMERULAR FILTRATION RATE > 60.0 (>42); GLUCOSE, FASTING 89 MG/DL (70-100); MAGNESIUM LEVEL 1.6 MG/DL (1.8-2.4); POTASSIUM SERUM 3.2 MEQ/L (3.5-5.1); SODIUM LEVEL 143 MEQ/L (136-145)
[2021-01-20] MEDS: HumaLOG INSULIN (NovoLOG) PER UNIT SC SCH ×4 (07:30→20:11)
[2021-01-20] MEDS ORDERED: POTASSIUM CHLORIDE 10% LIQ 20 MEQ/15 ML UDC PO ONE (08:00)
[2021-01-20] MEDS ORDERED: MAG SULF 1GM/100ML (MAG RUN) 1 GM in IV 1 EA IV ONE (08:05)
[2021-01-20] MEDS: METAMUCIL (PSYLLIUM) PACKET PO SCH ×2 (08:19→20:21)
[2021-01-20] MEDS: DICLOFENAC EPOLAMINE 1.3 % PATCH TOP SCH ×2 (08:19→20:22)
[2021-01-20] MEDS: TOLTERODINE (DETROL) 2 MG TAB PO SCH ×2 (08:20→20:23)
[2021-01-20] MEDS: NORCO, ANEXSIA 5/325MG TABLET (HYDROcodone/ACETAMINOPHEN) PO PRN ×2 (08:20→13:18)
[2021-01-20] MEDS: ROSUVASTATIN 10 MG TAB (CRESTOR) PO SCH (08:20)
[2021-01-20] MEDS: GABAPENTIN 400MG CAP PO SCH ×2 (08:20→20:23)
[2021-01-20] MEDS: MECLIZINE 25 MG TABLET PO SCH ×2 (08:20→20:24)
[2021-01-20] MEDS: FINASTERIDE 5 MG TAB PO SCH (08:20)
[2021-01-20] MEDS: TAMSULOSIN 0.4 MG CAP PO SCH (08:21)
[2021-01-20] MEDS: DICLOFENAC 1% TOPICAL GEL (PATIENT'S OWN MED) TOP SCH ×3 (08:21→20:25)
--- NOTE | 2021-01-20 08:47 | IPNPDOC ---
Text Note Date of Service The patient was seen on 01/20/21. NOTE Gen. surgery. Dr. Thurston The patient is a 75-year-old male who was admitted with large bowel obstruction at the level of the splenic flexure status post diagnostic laparoscopy with transverse loop colostomy 01/16/[address] Thurston. Afebrile, VSS Resting in bed, no acute distress. S1-S2 regular rate and rhythm Lungs clear to auscultation Abdomen protuberant but decreased distention. There is still some swelling noted in the ostomy is dark reddish color. There is brown liquid noted in the colostomy bag. No edema 01/18 Stool 2725 mL 01/19 stool 1050ml 01/20 stool 1050 mL, 450 mL emesis. 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 Status post diagnostic laparoscopy with transverse loop colostomy 01/16/[address] Thurston. Patient is reviewed and examined as per Dr. Thurston Continue Soft diet The patient has had large volumes of stool from his ostomy, Metamucil was added. Will also check C. difficile Tentative plan previously discussed with the patient as per Dr. Thurston. Tentatively plan to proceed with colonoscopy in 2-3 weeks to look for etiology of obstruction. In 2-3 months possibly consider left colectomy and reversal of colostomy. Continue colostomy teaching and arrange home care. VS,Fishbone, I+O VS, Fishbone, I+O Laboratory Tests 01/19/21 12:52 01/20/21 06:14 Vital Signs Date Time Temp Pulse Resp B/P (MAP) Pulse Ox O2 Delivery O2 Flow Rate FiO2 01/20/21 08:20 18 Room Air 01/20/21 06:00 97.6 74 124/56 (78) 93 01/18/21 22:00 2.0 I&O- Last 24 Hours up to 6 AM 01/20/21 05:59 Intake Total 3420 ml Output Total 2400 ml Balance 1020 ml Attending Note Attending Note Patient doing well following transverse colostomy to decompress his distended colon. He still will need to have workup for the splenic flexure obstruction. Not ready to go home yet due to high output from his colostomy. I have started him on Metamucil as well as Lomotil. C. difficile is negative. Razia Foster January 20, 2021 08:47 HU THURSTON MD January 21, 2021 09:54
[2021-01-20 11:39] LABS: CLOSTRIDIUM DIFFICILE PCR NEGATIVE (NEGATIVE)
[2021-01-20 12:34] LABS: BLOOD UREA NITROGEN 2 MG/DL (7-18); CALCIUM LEVEL 8.2 MG/DL (8.8-10.2); CARBON DIOXIDE LEVEL 28 MEQ/L (21-32); CHLORIDE LEVEL 110 MEQ/L (98-107); CREATININE FOR GFR 0.55 MG/DL (0.70-1.30); GLOMERULAR FILTRATION RATE > 60.0 (>42); GLUCOSE, FASTING 107 MG/DL (70-100); POTASSIUM SERUM 3.5 MEQ/L (3.5-5.1); SODIUM LEVEL 143 MEQ/L (136-145)
[2021-01-20] MEDS: LOMOTIL 2.5MG/0.025MG TABLET PO SCH ×2 (13:17→20:22)
--- NOTE | 2021-01-20 13:27 | IPNPDOC ---
Text Note Date of Service The patient was seen on 01/20/21. NOTE Hospitalist Progress Note Subjective: Patient continues to have virtually liquid stools, although there is some formed stool occasionally. Nurses also report that some food passes through without being digested. Surgical team has already put in lab for C. difficile. Other than that though, the patient seems to be feeling well this morning. His abdominal pain is improved, and he does not have any other complaints at this time. Objective: General: Awake, alert, oriented 3. Not in any acute distress. HEENT: Head normocephalic, atraumatic, sclera are nonicteric. Hearing is grossly intact to conversation. Respiratory: Clear to auscultation bilaterally with no wheezes, rales, or rhonchi. Cardiovascular: Regular rate and rhythm, with no rubs, gallops, or murmur. Abdomen: Soft, nontender, nondistended, no hepatosplenomegaly appreciated. Bowel sounds present. Colostomy bag present with mixture of soft and liquid stools. Extremities: 2+ pulses in the radial and dorsalis pedis bilaterally. No evidence of clubbing or cyanosis. Assessment: Hypokalemia Large bowel obstruction status post colostomy performed during this admission, with question of malignant mass in left colon Enterococcus faecalis urinary tract infection, antibiotics have now been discontinued Bibasilar infiltrates on chest x-ray, no clinical symptoms of pneumonia History of BPH Diabetes mellitus type 2 Plan: Continues to have quite a bit of liquid stool, which is also causing his hypokalemia. Surgical team has already put in lab test for C. difficile which is reasonable considering recent antibiotic administration. They have also started him on Metamucil as a bulking agent. Will discontinue IV fluids at this time and see if he is able to keep up with oral supplementation alone. A repeat potassium this afternoon was improved, but still on the low end. We will give him another potassium supplement tonight and recheck in the morning. PT recommends home with services when he is medically stable. VS,Fishbone, I+O VS, Fishbone, I+O Laboratory Tests 01/20/21 06:14 01/20/21 12:01 Vital Signs Date Time Temp Pulse Resp B/P (MAP) Pulse Ox O2 Delivery O2 Flow Rate FiO2 01/20/21 13:18 18 Room Air 01/20/21 06:00 97.6 74 124/56 (78 93 01/18/21 22:00 2.0 I&O- Last 24 Hours up to 6 AM 01/20/21 05:59 Intake Total 3420 ml Output Total 2400 ml Balance 1020 ml MARILIA HEMPHILL DO January 20, 2021 13:27
[2021-01-20 14:00] VITALS: BP 111/68
[2021-01-20] MEDS ORDERED: ANEXSIA, NORCO 7.5MG/325MG TABLET(HYDROCODONE/APAP) PO PRN (14:50)
[2021-01-20] MEDS: PANTOPRAZOLE 40MG VIAL (C9113 PER 1) IV SCH (20:24)
[2021-01-20] MEDS: ANEXSIA, NORCO 7.5MG/325MG TABLET(HYDROCODONE/APAP) PO SCH (20:24)
[2021-01-20] MEDS ORDERED: POTASSIUM CHLORIDE 10 MEQ SR TABLET PO ONE (21:00)
[2021-01-20 22:00] VITALS: BP 152/83
[2021-01-21] MEDS: AMPICILLIN SOD/SULBACTAM SOD 3 GM in D5W MINI-BAG PLUS 100 ML IV SCH ×4 (04:42→21:47)
[2021-01-21] MEDS: HEPARIN SOD (PORCINE) 5000UNITS/ML 1ML VIAL/SYRINGE SQ SCH ×3 (05:14→21:47)
[2021-01-21 06:00] VITALS: BP 98/54
[2021-01-21 07:52] LABS: HEMATOCRIT 33.8 % (42.0-52.0); HEMOGLOBIN 10.9 g/dl (13.5-17.5); MEAN CORPUSCULAR HEMOGLOBIN 30.4 pg (27.0-33.0); MEAN CORPUSCULAR HGB CONC 32.2 g/dl (32.0-36.5); MEAN CORPUSCULAR VOLUME 94.2 fl (80.0-96.0); PLATELET COUNT, AUTOMATED 279 10^3/uL (150-450); RED BLOOD COUNT 3.59 10^6/uL (4.30-6.10); WHITE BLOOD COUNT 7.5 10^3/uL (4.0-10.0)
[2021-01-21 08:16] LABS: BLOOD UREA NITROGEN 7 MG/DL (7-18); CALCIUM LEVEL 8.2 MG/DL (8.8-10.2); CARBON DIOXIDE LEVEL 28 MEQ/L (21-32); CHLORIDE LEVEL 109 MEQ/L (98-107); CREATININE FOR GFR 0.53 MG/DL (0.70-1.30); GLOMERULAR FILTRATION RATE > 60.0 (>42); GLUCOSE, FASTING 95 MG/DL (70-100); MAGNESIUM LEVEL 1.8 MG/DL (1.8-2.4); POTASSIUM SERUM 3.4 MEQ/L (3.5-5.1); SODIUM LEVEL 142 MEQ/L (136-145)
[2021-01-21] MEDS: DICLOFENAC EPOLAMINE 1.3 % PATCH TOP SCH ×2 (09:00→21:00)
[2021-01-21] MEDS: HumaLOG INSULIN (NovoLOG) PER UNIT SC SCH ×4 (09:42→21:00)
[2021-01-21] MEDS: LOMOTIL 2.5MG/0.025MG TABLET PO SCH ×3 (09:46→21:54)
[2021-01-21] MEDS: METAMUCIL (PSYLLIUM) PACKET PO SCH ×2 (09:46→21:48)
[2021-01-21] MEDS: FINASTERIDE 5 MG TAB PO SCH (09:46)
[2021-01-21] MEDS: TAMSULOSIN 0.4 MG CAP PO SCH (09:46)
[2021-01-21] MEDS: GABAPENTIN 400MG CAP PO SCH ×2 (09:46→21:46)
[2021-01-21] MEDS: MECLIZINE 25 MG TABLET PO SCH ×2 (09:46→21:47)
[2021-01-21] MEDS: ROSUVASTATIN 10 MG TAB (CRESTOR) PO SCH (09:46)
[2021-01-21] MEDS: ANEXSIA, NORCO 7.5MG/325MG TABLET(HYDROCODONE/APAP) PO SCH ×2 (09:47→21:47)
[2021-01-21] MEDS: DICLOFENAC 1% TOPICAL GEL (PATIENT'S OWN MED) TOP SCH ×3 (09:48→21:48)
--- NOTE | 2021-01-21 09:57 | IPNPDOC ---
Text Note Date of Service The patient was seen on 01/21/21. NOTE Patient had more than 6 L of output recorded yesterday. Also the recorded him throwing up but he denies this. He denies any nausea, severe bloating he feels fine. He is comfortable emptying out the colostomy appliance. Vital signs stable On examination he looks comfortable Abdomen is markedly rounded, protuberant but nondistended. Right upper quadrant transverse loop colostomy is swollen but otherwise viable. He has some clumps of stool with liquid in his bag which is an improvement. Nontender on palpation. Impression and plan Large colon obstruction at the level of splenic flexure status post transverse loop colostomy I will increase that the Lomotil to 2 tablets 3 times a day. Can go up to 2 tablets 4 times a day. I'll also double his Metamucil. If output is about 1 L a day or less, should be able to go home Follow up with me for interval colonoscopy and further management of his large colon obstruction most likely will need a left colectomy and reversal of his transverse colostomy usually at about 2-3 months time If he still here in the next week, I will consider doing colonoscopy VS,Richard, I+O VS, Richard I+O Laboratory Tests 01/20/21 12:01 01/21/21 07:22 Vital Signs Date Time Temp Pulse Resp B/P (MAP) Pulse Ox O2 Delivery O2 Flow Rate FiO2 01/21/21 09:47 18 01/21/21 06:00 97.0 67 98/54 (69) 93 Room Air 01/18/21 22:00 2.0 I&O- Last 24 Hours up to 6 AM 01/21/21 06:00 Intake Total 3540 ml Output Total 8245 ml Balance -4705 ml HU THURSTON MD January 21, 2021 09:57
[2021-01-21] MEDS: TOLTERODINE (DETROL) 2 MG TAB PO SCH ×2 (12:44→21:45)
[2021-01-21 12:45] VITALS: BP 107/59
--- NOTE | 2021-01-21 18:07 | IPNPDOC ---
Text Note Date of Service The patient was seen on 01/21/21. NOTE Subjective: Patient continues to have liquid stools up to 6 L overnight. Denies fever, chills, nausea, vomiting. Objective: GENERAL APPEARANCE: NAD HEENT: no scleral icterus, no JVD, EOMI CARDIOVASCULAR: S1S2 LUNGS: CTA ABDOMEN: soft & not tender w palpitation, colostomy in place with bag of liquid stool MUSCULOSKELETAL: no cyanosis, no swelling INTEGUMENT: no generalized pallor NEUROLOGICAL: cranial nerve function from 2-12 intact intact, follows commands, speech not dysarthric Assessment and plan Patient is 75 years old male was presented hospital with large bowel o bstruction. During hospital stay patient received colostomy and he was found to have progression of malignant mass in the left colon Large bowel obstruction/ high volume colostomy output Status post colostomy Most likely secondary to malignancy Surgical team started Lomotil 2 tablets 3 times a day and continue increased dose of Metamucil Patient will need interval colonoscopy and further management of his large colon obstruction most likely will need a left colectomy and reversal of his transverse colostomy usually at about 2-3 months time Continue Unasyn Electrolytes abnormalities Replaced E. faecalis UTI - treated BPH / urinary spasms -Resume home Po meds if taking clears or fluids DM type II -BS stable -ISS and FS Q6H, hypoglycemic protocol GERD -PPI DVT px -heparin sc VS,Fishbone, I+O VS, Fishbone, I+O Laboratory Tests 01/21/21 07:22 Vital Signs Date Time Temp Pulse Resp B/P (MAP) Pulse Ox O2 Delivery O2 Flow Rate FiO2 01/21/21 16:50 18 01/21/21 15:57 Room Air 01/21/21 12:45 87 107/59 (75) 01/21/21 06:00 97.0 93 01/18/21 22:00 2.0 I&O- Last 24 Hours up to 6 AM 01/21/21 06:00 Intake Total 3540 ml Output Total 8245 ml Balance -4705 ml TORIBIO BARRAGAN DO January 21, 2021 18:07
[2021-01-21] MEDS: PANTOPRAZOLE 40MG VIAL (C9113 PER 1) IV SCH (21:48)
[2021-01-21 22:00] VITALS: BP 117/68
[2021-01-22] MEDS: AMPICILLIN SOD/SULBACTAM SOD 3 GM in D5W MINI-BAG PLUS 100 ML IV SCH (03:22)
[2021-01-22] MEDS: HEPARIN SOD (PORCINE) 5000UNITS/ML 1ML VIAL/SYRINGE SQ SCH (05:41)
[2021-01-22 06:00] VITALS: BP 121/74
[2021-01-22 06:58] LABS: HEMATOCRIT 33.6 % (42.0-52.0); MEAN CORPUSCULAR HEMOGLOBIN 30.6 pg (27.0-33.0); MEAN CORPUSCULAR HGB CONC 32.7 g/dl (32.0-36.5); MEAN CORPUSCULAR VOLUME 93.6 fl (80.0-96.0); PLATELET COUNT, AUTOMATED 276 10^3/uL (150-450); RED BLOOD COUNT 3.59 10^6/uL (4.30-6.10); WHITE BLOOD COUNT 7.3 10^3/uL (4.0-10.0)
[2021-01-22] MEDS: HumaLOG INSULIN (NovoLOG) PER UNIT SC SCH ×2 (07:30→12:23)
[2021-01-22 07:37] LABS: BLOOD UREA NITROGEN 9 MG/DL (7-18); CARBON DIOXIDE LEVEL 28 MEQ/L (21-32); CHLORIDE LEVEL 108 MEQ/L (98-107); CREATININE FOR GFR 0.52 MG/DL (0.70-1.30); GLOMERULAR FILTRATION RATE > 60.0 (>42); GLUCOSE, FASTING 84 MG/DL (70-100); MAGNESIUM LEVEL 1.7 MG/DL (1.8-2.4); POTASSIUM SERUM 3.3 MEQ/L (3.5-5.1); SODIUM LEVEL 142 MEQ/L (136-145)
[2021-01-22] MEDS ORDERED: MAG SULF 1GM/100ML (MAG RUN) 1 GM in IV 1 EA IV ONE (09:00)
[2021-01-22] MEDS: DICLOFENAC EPOLAMINE 1.3 % PATCH TOP SCH (09:00)
[2021-01-22] MEDS: METAMUCIL (PSYLLIUM) PACKET PO SCH (09:02)
[2021-01-22] MEDS: TAMSULOSIN 0.4 MG CAP PO SCH (09:03)
[2021-01-22] MEDS: TOLTERODINE (DETROL) 2 MG TAB PO SCH (09:03)
[2021-01-22] MEDS: LOMOTIL 2.5MG/0.025MG TABLET PO SCH (09:03)
[2021-01-22] MEDS: MECLIZINE 25 MG TABLET PO SCH (09:03)
[2021-01-22] MEDS: ROSUVASTATIN 10 MG TAB (CRESTOR) PO SCH (09:03)
[2021-01-22] MEDS: FINASTERIDE 5 MG TAB PO SCH (09:04)
[2021-01-22] MEDS: ANEXSIA, NORCO 7.5MG/325MG TABLET(HYDROCODONE/APAP) PO SCH (09:04)
[2021-01-22] MEDS: GABAPENTIN 400MG CAP PO SCH (09:04)
[2021-01-22] MEDS: DICLOFENAC 1% TOPICAL GEL (PATIENT'S OWN MED) TOP SCH (09:05)
[2021-01-22] MEDS ORDERED: KCL 10MEQ/100ML SWI (KRUN) 10 MEQ in IV 1 EA IV ONE (10:00)
[2021-01-22] MEDS ORDERED: POTASSIUM CHLORIDE 10 MEQ SR TABLET PO ONE (10:30)
[2021-01-22] MEDS ORDERED: DIPH2.5T15 PO ×2 (10:51→10:52)
[2021-01-22] MEDS ORDERED: META28PO PO (10:57)
--- NOTE | 2021-01-22 12:51 | DS.PDOC ---
Discharge Summary General Date of Admission January 13, 2021 at 17:21 Date of Discharge 01/22/21 Discharge Summary PROCEDURES PERFORMED DURING STAY: Colostomy ADMITTING DIAGNOSES: SBO UTI, sepsis Acute hyperkalemia BPH / urinary spasms DM type II Arthritis /chronic back pain GERD DISCHARGE DIAGNOSES: high volume colostomy output SBO sepsis Acute hyperkalemia BPH / urinary spasms DM type II Arthritis /chronic back pain GERD Electrolytes abnormalities E. faecalis UTI Hyperlipidemia. COMPLICATIONS/CHIEF COMPLAINT: Altered Mental Status. HISTORY OF PRESENT ILLNESS:The patient is a 75-year-old male who has never had a colonoscopy who presents with a large bowel obstruction and presents with nausea, vomiting, and no bowel movements over the last 14 days, and the nausea and vomiting about 10 times per day over the last couple of days. He is complaining of increasing lethargy and abdominal pain that has been persistent. He has lost about 40 pounds over the last few months, although feels that this was secondary to his who was hospitalized. HOSPITAL COURSE: During hospital stay following issues addressed. Colostomy was done by Dr. Arellano Large bowel obstruction/ high volume colostomy output Status post colostomy Most likely secondary to malignancy Surgical team started Lomotil 2 tablets 3 times a day and continue increased dose of Metamucil Patient will need interval colonoscopy and further management of his large colon obstruction most likely will need a left colectomy and reversal of his transverse colostomy usually at about 2-3 months time Also patient received course of Unasyn Electrolytes abnormalities Replaced E. faecalis UTI - treated BPH / urinary spasms -Resume home Po meds if taking clears or fluids DM type II -BS stable -ISS and FS Q6H, hypoglycemic protocol GERD -PPI DVT px -heparin sc DISCHARGE MEDICATIONS: Please see below. ALLERGIES: Please see below. PHYSICAL EXAMINATION ON DISCHARGE: VITAL SIGNS: Please see below. GENERAL APPEARANCE: NAD HEENT: no scleral icterus, no JVD, EOMI CARDIOVASCULAR: S1S2 LUNGS: CTA ABDOMEN: soft & not tender w palpitation, colostomy in place with bag of liquid stool MUSCULOSKELETAL: no cyanosis, no swelling INTEGUMENT: no generalized pallor NEUROLOGICAL: cranial nerve function from 2-12 intact intact, follows commands, speech not dysarthric LABORATORY DATA: Please see below. IMAGING: INDICATION: abd pain, absent BS, perforation? COMPARISON: Comparison CT study is from January 13, 2021.. TECHNIQUE: Helical scanning is acquired and 3 mm axial images were reformatted. Coronal and sagittal MPR images were generated and reviewed. FINDINGS: Preliminary steam setter view of the abdomen demonstrates an essentially gasless abdomen. Nasogastric tube is noted entering the left upper quadrant. Axial CT images show linear fibrosis in both lung bases. No pleural effusion is seen. No focal hepatic or splenic lesion is observed. The nasogastric terminates in the body of the stomach. There is no evidence of free intraperitoneal air. No ascites is seen. Moderate to marked fluid distention of the colon and distal small bowel is again seen similar to the prior study. The cecum is dilated measuring up to 10.7 cm. The previously noted obstructive lesion in the splenic flexure of the colon is again seen unchanged. This appears to be a circumferential focal stricture at the splenic flexure proximal to which the colon is quite dilated. Distal to this the left colon is largely empty except for a small amount of gas. There is sigmoid colon diverticulosis. The findings are quite similar to the prior scan from January 13, 2021 except that there is more fluid distention in the proximal colon and a little less fluid distention in the distal small bowel. Energy artifact is seen in the pelvis related to prosthetic hip components. There are dystrophic calcifications in the prostate. There is a cyst in the upper pole the left kidney again seen. IMPRESSION: High-grade left colonic obstruction at the level of the splenic flexure where there is a short focal stricture with some adjacent edema in the pericolonic fat. This is the lesion identified on January 13, 2021. There is more fluid distension of the of the colon proximal to this but less fluid distention of the distal small bowel when com pared with the January 13, 2021 study. No evidence of free air or free fluid. Cecal diameter is 10.7 cm. <Electronically signed by Abdulaziz Logan > 01/16/21 1511 DD: Chris Logan MD 01/16/21 1457 DT: FRANCESCA 01/16/21 151 DS: TRU 01/16/21 1457 01/16/21 1457 PROGNOSIS: Fair ACTIVITY: [As tolerated]. DIET: Cardiac DISCHARGE PLAN: Follow-up with surgical team DISPOSITION: Home DISCHARGE INSTRUCTIONS: Follow-up with surgical team for colonoscopy in 3-4 weeks ITEMS TO FOLLOWUP ON ON OUTPATIENT: Follow-up with PCP and surgical team in 5-7 days DISCHARGE CONDITION: [Stable]. TIME SPENT ON DISCHARGE: 40 minutes. Vital Signs/I&Os Vital Signs Date Time Temp Pulse Resp B/P (MAP) Pulse Ox O2 Delivery O2 Flow Rate FiO2 01/22/21 09:40 16 Room Air 01/22/21 06:00 97.6 72 121/74 (90) 94 01/18/21 22:00 2.0 I&O- Last 24 Hours up to 6 AM 01/22/21 06:00 Intake Total 2900 ml Output Total 2800 ml Balance 100 ml Laboratory Data Labs 24H Laboratory Tests 2 01/21/21 16:57: Bedside Glucose (Misc Panel) 136H 01/21/21 20:35: Bedside Glucose (Misc Panel) 120H 01/22/21 06:17: Nucleated Red Blood Cells % (auto) 0.0, Anion Gap 6L, Glomerular Filtration Rate > 60.0, Calcium Level 8.0L, Magnesium Level 1.7L 01/22/21 11:05: Bedside Glucose (Misc Panel) 109 CBC/BMP Laboratory Tests 01/22/21 06:17 FSBS Laboratory Tests Test 01/21/21 16:57 01/21/21 20:35 01/22/21 11:05 Range/Units Bedside Glucose (Misc Panel) 136 120 109 83-110 MG/DL Microbiology Microbiology 01/13/21 Blood Culture - Final, Complete NO GROWTH AFTER 5 DAYS 01/13/21 Urine Culture - Final, Complete Enterococcus Faecalis 01/13/21 Respiratory Virus Panel (PCR) ([facility]ON[facility]) - Final, Complete 01/13/21 Blood Culture - Final, Complete NO GROWTH AFTER 5 DAYS Discharge Medications Scheduled Cholecalciferol (Vitamin D3) (Vitamin D3) 1,000 Unit Tablet, 5,000 UNITS PO DAILY, (Reported) Diclofenac Potassium (Diclofenac Potassium) 50 Mg Tablet, 50 MG PO BID, (Reported) Diphenoxylate HCl/Atropine (Diphenoxylate-Atrop 2.5-0.025) 1 Each Tablet, 1 EA PO TID Finasteride (Finasteride) 5 Mg Tablet, 5 MG PO DAILY, (Reported) Furosemide (Furosemide) 20 Mg Tablet, 10 MG PO DAILY, (Reported) Gabapentin (Gabapentin) 400 Mg Capsule, 2,400 MG PO QHS, (Reported) Gabapentin (Gabapentin) 400 Mg Capsule, 1,200 MG PO QAM, (Reported) Meclizine HCl (Meclizine HCl) 25 Mg Tablet, 25 MG PO BID, (Reported) Metformin HCl (Metformin HCl) 500 Mg Tablet, 500 MG PO BID, (Reported) Omeprazole (Omeprazole) 20 Mg Capsule.dr, 20 MG PO DAILY, (Reported) Psyllium Husk (with Sugar) (Metamucil Packet) 3.4 Gm Powd.pack, 1 PKT PO DAILY Rosuvastatin Calcium (Rosuvastatin Calcium) 40 Mg Tablet, 40 MG PO DAILY, (Reported) Tamsulosin HCl (Flomax) 0.4 Mg Capsule, 0.4 MG PO DAILY, (Reported) Tolterodine Tartrate (Tolterodine Tartrate) 2 Mg Tablet, 2 MG PO BID, (Reported) Scheduled PRN Hydrocodone/Acetaminophen (Hydrocodone-Acetamin 5-325 mg) 1 Each Tablet, 1 TAB PO Q4H PRN for PAIN, (Reported) MDD 4 Allergies Coded Allergies: No Known Drug Allergies (Verified Allergy, Unknown, 01/13/21) TORIBIO BARRAGAN DO January 22, 2021 12:51
[2021-01-22] MEDS ORDERED: LOMOTIL 2.5MG/0.025MG TABLET PO SCH (16:00)
[2021-02-07] MEDS ORDERED: FLUO20CA20 PO (12:13)
[2021-02-07] MEDS ORDERED: FLUT50SP33 NARES (12:13)
[2021-02-07] MEDS ORDERED: HYDR-4517 PO (12:13)
[2021-02-07] MEDS ORDERED: MULTTAB61 PO (12:13)
[2021-02-07] MEDS ORDERED: LACT20EL PO (12:13)
[2021-02-07] MEDS ORDERED: SUMA100T2 PO (12:13)
--- NOTE | 2021-02-16 14:31 | ROOPDOC ---
[facility] Report Of Operation Report of Operation DATE OF PROCEDURE: 01/16/21 PREPROCEDURE DIAGNOSES: large bowel obstruction. POSTPROCEDURE DIAGNOSES: large bowel obstruction. PROCEDURE: diagnostic laparoscopy, transverse colostomy. 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 ESTIMATED BLOOD LOSS: Approximately 20 mL. COMPLICATIONS: none. REMARKS: 75-year-old male with no prior colonoscopies was admitted to the hospital for large bowel obstruction related to a possible mass at the level of the splenic flexure. Initially was responding to laxatives and enemas but had an acute exacerbation of his pain and noted to be severely distended today. He was pounding a lot of pain roughly about 1 PM today[address] A noncontrast CT did not show any perforation but the very large, air-filled cecum up to 10 cm. I deci ded to bring him to the OR, first to check for possible ischemia of the distended colon and also to divert the colon to relieve the obstruction. PROCEDURE NOTE: Patient is a very protuberant abdomen. Very thick omentum covering most of the transverse colon as well as the splenic flexure. The area of obstruction is not clearly or easily visualized. The transverse colon is very distended and redundant up to about 7 or 8 cm in diameter. The cecum is mostly covered with the displaced loops of small bowel. At least on the outside there is no signs of full-thickness ischemia or necrosis. No evidence for perforation. Visible portion of the peritoneal lining shows no evidence for studding or metastasis. Likewise no evidence for metastasis at the liver. DESCRIPTION OF PROCEDURE: Patient has been placed on scheduled Zosyn 3.375 g IV every 6 hours for possibility of colitis. He was brought to the operating room, placed spine and stable. Compression was placed in both lower extremities with DVT prophylaxis. General endotracheal anesthesia was started. Additional peripheral lines placed. A Martinez catheter was placed. His left arm was tucked. His abdomen widely prepped and draped in the usual sterile fashion. We paused for a surgical timeout using both pre-incision safety checklist to verify correct patient, procedure site and additional clinical information prior to beginning the procedure. Patient is a very protuberant abdomen chronically and this is tensely distended at this time. He has a nasogastric tube in place. He has no prior abdominal surgeries. I started with a right upper quadrant entry using a Veress needle. This is placed in a controlled fashion. Proper placement confirmed with saline drop technique. CO2 insufflation is started to pressure 15 mmHg. Using the same incision a 5 mm optical port was placed under direct vision of the laparoscope. On entry to the abdomen there were no free fluid, no signs of perforation. Most of the bowels were covered with thick omentum. There were no signs of peritoneal studding nor any signs of surface metastasis to the liver. I quickly turned my attention towards the right lower quadrant area where are the cecum is located to try to make sure that there is no evidence of full- thickness ischemia to the cecum was he was complaining a lot of right lower quadrant pain. This was not visible on entry. He was placed on a reverse Arun ndelenburg position tilted towards the left side. I established 2 ports over at the umbilical area also at the right lower quadrant area. The bowels were retracted away from the cecum. This reveals a distended cecum but no evidence for full-thickness Monica. I then retracted the omentum upwards to reveal a very distended and redundant transverse colon. Again there is no signs of ischemia or perforation at this area. I could not follow the transverse colon to the splenic flexure as this was way up towards the left upper quadrant underneath the left hemithorax. At this point I have decided to place a transverse loop colostomy to relieve the obstruction. I chose an area over at the right upper quadrant area as a placement for my colostomy. The nearest portion of the transverse colon was located the omentum as well as the gastrocolic ligament was dissected free of these transverse colon. Once an adequate portion of the colon was freed up enough that I could lift this off the chosen area over the right upper quadrant area the abdomen was deflated. A circular skin incision was then created and deepened through the subcutaneous tissue. The anterior fascia was opened up vertically, rectus muscles split bluntly and the posterior sheath also opened up vertically. The transverse colon was then passed off to this area. Due to the size of the colon this was hard to fully exteriorize the whole width of the colon. I made a colotomy and started decompressing the transverse colon by inserting a nasogastric tube and connecting this to suction. I drained a total of 3 L of brownish nonbloody fluid still the colon remains quite enlarged not enough to bring the hole full-thickness of the colon out to the level of the skin. I matured my colostomy making sure to also suture the midportion of the transverse colon to the level of the fascia to prevent this from retracting in the words into the abdomen. Both the proximal and transverse loop were opened up and matured to the skin. Once this was done the ostomy appliance was placed. I changed gloves and closed the three 5 mm port sites and cover this with Dermabond. Patient tolerated the procedure well. He was subsequently awakened extubated brought to recovery room in stable condition. ALON ARELLANO MD Feb 16, 2021 14:31
== END 2021-01-22 14:53 | disposition home health service (06) | DRG 854 ==
LOC: M ED 12:15 → ENRESERV 16:58 → M ED INP 17:21 → M MSPAV 17:49
PROVIDERS: ADMIT Internal Medicine; ATTEND Internal Medicine
PROC: 0D1L4Z4 Bypass Transverse Colon to Cutaneous, Percutaneous Endoscopic Approach (ICD-10-PCS; principal; 2021-01-16 15:26)
DX: A41.9 Sepsis, unspecified organism (principal); K56.609 Unspecified intestinal obstruction, unspecified as to partial versus complete obstruction; N39.0 Urinary tract infection, site not specified; E11.42 Type 2 diabetes mellitus with diabetic polyneuropathy; E78.5 Hyperlipidemia, unspecified; N40.1 Benign prostatic hyperplasia with lower urinary tract symptoms; K59.03 Drug induced constipation; E87.5 Hyperkalemia; R42 Dizziness and giddiness; T40.2X5A Adverse effect of other opioids, initial encounter; N32.89 Other specified disorders of bladder; K21.9 Gastro-esophageal reflux disease without esophagitis; B95.2 Enterococcus as the cause of diseases classified elsewhere; Z66 Do not resuscitate; Z90.49 Acquired absence of other specified parts of digestive tract; Z87.891 Personal history of nicotine dependence; Z79.84 Long term (current) use of oral hypoglycemic drugs; Z79.899 Other long term (current) drug therapy

== ENCOUNTER → 2021-02-04 | Outpatient (CLI) | payer MEDICARE ==
[~2021-02-04] MED LIST: D31000TA2 PO; DICL50TA2 PO; DIPH2.5T15 PO; FINA5TAB2 PO; FLOM0.4C39 PO; FLUO20CA20 PO; FLUT50SP33 NARES; FURO20TA2 PO; GABA-283 PO; HYDR-3713 PO; HYDR-4517 PO; LACT20EL PO; MECL-86 PO; META28PO PO; METF-839 PO; MULTTAB61 PO; OMEP-218 PO; ROSU40TA4 PO; SUMA100T2 PO; TOLT2TAB12 PO
== END ==
LOC: M LABSMTC 09:46
PROVIDERS: ATTEND Anesthesiology
DX: Z01.818 Encounter for other preprocedural examination (principal); Z11.52 Encounter for screening for COVID-19

== ENCOUNTER 2021-02-09 12:31 | Day surgery (SDC) | payer OTHER ==
[~2021-02-09] VITALS: Ht 190.5 cm; Wt 105.7 kg
[~2021-02-09 12:31] MED LIST changes: +NS 1,000 ML IV ONE; +dexameTHASONE 4 MG/ML 1ML VIAL (J1100 PER 1MG) As Ordered ONE; +fentaNYL 100 MCG/2 ML INJECTION (J3010) As Ordered ONE
[2021-02-09] MEDS ORDERED: propofoL 200 MG/20 ML VIAL As Ordered ONE (15:09)
--- NOTE | 2021-02-09 15:30 | ROOR ---
Patient Name: Giacomo Wallis Procedure Date: 02/09/2021 2:45 PM Date of : 1945 Age: 75 Room: [facility] Gender: Male Note Status: Finalized Procedure: Colonoscopy Indications: Colonic obstruction Providers: Alon Arellano MD Referring MD: Kiran Handy MD Requesting Provider: Medicines: Monitored Anesthesia Care Complications: No immediate complications. Procedure: Pre-Anesthesia Assessment: - Colonoscopy done through transverse loop colostomy antegradely to the cecum, retrogradely to the splenic flexure, and through the anus to the splenic flexure The Colonoscope was introduced through the transverse colostomy and advanced to the cecum, identified by appendiceal orifice and ileocecal valve. The colonoscopy was somewhat difficult due to previous surgery. The patient tolerated the procedure well. The quality of the bowel preparation was good. Findings: Hemorrhoids were found on perianal exam. A fungating completely obstructing proximal and distal end seen but not traversed. mass was found at the splenic flexure. The mass was circumferential. No bleeding was present. This was biopsied with a cold forceps for histology. Area was tattooed with an injection of 5 mL of Reba ink. completely obstructing mass is found at the splenic flexure, 25 cms proximal to the transverse colostomy, 60 cms from the anal verge Estimated blood loss was minimal. No large polyps found, hard to ascertain for small/tiny polyps. Colon could not be fully distended due to the colostomy presence. Presence of left over solid stool in the diverted distal colon The retroflexed view of the distal rectum and anal verge was normal and showed no anal or rectal abnormalities. Impression: - Hemorrhoids found on perianal exam. 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 Biopsied. Tattooed. - The distal rectum and anal verge are normal on retroflexion view. Recommendation: - Discharge patient to home (ambulatory). - Await pathology results. - Return to my office in 2 weeks. Procedure Code(s): --- Professional --- 90390, Colonoscopy through stoma; with directed submucosal injection(s), any substance 24135, Colonoscopy through stoma; with biopsy, single or multiple Diagnosis Code(s): --- Professional --- K64.9, Unspecified hemorrhoids D49.0, Neoplasm of unspecified behavior of digestive system K56.691, Other complete intestinal obstruction K56.609, Unspecified intestinal obstruction, unspecified as to partial versus complete obstruction CPT copyright 2019 [employer]. All rights reserved. The codes documented in this report are preliminary and upon site leasing agent review may be revised to meet current compliance requirements. Alon Arellano MD Alon Arellano MD 02/09/2021 3:30:10 PM Electronically signed by Alon Arellano MD Number of Addenda: 0 Note Initiated On: 02/09/2021 2:45 PM Estimated Blood Loss: Estimated blood loss was minimal.
[2021-02-09 16:00] VITALS: BP 140/85
== END 2021-02-09 16:20 | disposition home or self-care (01) ==
LOC: M OPP 12:31
PROVIDERS: ATTEND Surgery
DX: D37.4 Neoplasm of uncertain behavior of colon (principal); K64.8 Other hemorrhoids; K56.601 Complete intestinal obstruction, unspecified as to cause; Z79.84 Long term (current) use of oral hypoglycemic drugs; Z79.891 Long term (current) use of opiate analgesic; Z79.899 Other long term (current) drug therapy; Z87.891 Personal history of nicotine dependence

== ENCOUNTER → 2021-02-17 | Outpatient (CLI) | payer OTHER ==
[~2021-02-17] MED LIST changes: +GASTROGRAFIN SOLUTION 30ML (Q9963) As Ordered ONE; +ISOVUE-370 76% 100ML VIAL As Ordered ONE; -NS 1,000 ML IV ONE; -dexameTHASONE 4 MG/ML 1ML VIAL (J1100 PER 1MG) As Ordered ONE; -fentaNYL 100 MCG/2 ML INJECTION (J3010) As Ordered ONE
--- NOTE | 2021-02-17 12:59 | REP ---
INDICATION: OTH INTERNL OBST UNSP PARTIAL VERSUS OST. COMPARISON: Multiple latest 01/16/2021 a noncontrast enhanced examination TECHNIQUE: Standard helical technique after the intravenous administration of 100 cc Isovue 370. FINDINGS: There is no change in the lung bases. Chronic fibrotic and/or subsegmental atelectatic changes are noted status quo. There are no pleural or pericardial effusions. Since the last examination the patient has undergone diverting colostomy. The ostomy site is seen in the right lower quadrant. The small bowel dilatation seen on the prior exam is all resolved. The liver, gallbladder, spleen, pancreas, adrenal glands, and kidneys are otherwise unchanged. There are bilateral renal cysts status quo and there is diffuse fatty infiltration of the pancreas status quo. There is no change in appearance of the abdominal aorta or para-aortic regions. There is no evidence of free fluid or free air. Even with Saul significant spray artifact is seen obscuring multiple pelvic images. No gross abnormality is identified. Bone window technique throughout the examination shows bilateral hip prostheses with advanced chronic spinal degenerative changes. IMPRESSION: 1. Chronic lung base changes. 2. Diverting colostomy and resultant findings as described above. 3. Bilateral Bosniak class 1 appearing renal cysts. 4. Diffuse pancreatic fatty infiltration. 5. Other findings and limitations as described above. <Electronically signed by Henry Hastings > 02/17/21 [id number]
== END ==
LOC: M RAD 10:55
PROVIDERS: ATTEND Surgery
DX: K56.699 Other intestinal obstruction unspecified as to partial versus complete obstruction (principal)
CPT/HCPCS: 74177; Q9963; Q9967

== ENCOUNTER → 2021-03-02 | Outpatient (CLI) | payer OTHER, SELFPAY ==
[~2021-03-02] MED LIST changes: +CAPE1TAB2 PO; -GASTROGRAFIN SOLUTION 30ML (Q9963) As Ordered ONE; -ISOVUE-370 76% 100ML VIAL As Ordered ONE; +VITMTA PO
== END ==
LOC: M LABSMTC 12:20
PROVIDERS: ATTEND Anesthesiology
DX: Z01.818 Encounter for other preprocedural examination (principal); Z11.52 Encounter for screening for COVID-19

== ENCOUNTER 2021-03-07 06:08 | Inpatient (IN) | payer MEDICARE, OTHER ==
[~2021-03-07] VITALS: Ht 190.5 cm; Wt 108.4 kg
[2021-03-07] VITALS (7 sets, daily range): BP systolic 114–148; BP diastolic 58–78
[~2021-03-07 06:08] MED LIST changes: +ALVIMOPAN 12 MG CAPSULE (ENTEREG) PO ONE; -CAPE1TAB2 PO; +CelecoXIB 400 MG CAP PO ONE; +FLUO-96 PO; -FLUO20CA20 PO; +HEPARIN SOD (PORCINE) 5000UNITS/ML 1ML VIAL/SYRINGE SQ ONE; +LR 1,000 ML IV ONE; +OMEP-173 PO; -OMEP-218 PO; -VITMTA PO; +cefoTEtan DISODIUM 2 GM in D5W MINI-BAG PLUS 50 ML IV ONE; +metroNIDAZOLE 500 MG in IV 1 EA IV ONE
[2021-03-07] MEDS ORDERED: BUPIVACAINE LIPOSOME/PF 1.3% 20ML VIAL (13.3MG/ML)(EXPAREL)(C9290 PER1MG) As Ordered ONE (07:10)
[2021-03-07] MEDS ORDERED: BUPIVACAINE HCL 0.25% 10ML VIAL As Ordered ONE (07:10)
[2021-03-07] MEDS ORDERED: BUPIVACAINE HCL 0.25% 30ML VIAL As Ordered ONE (07:10)
[2021-03-07] MEDS ORDERED: LIDOCAINE 1% SDV 30ML VIAL As Ordered ONE (07:10)
[2021-03-07] MEDS ORDERED: ONDANSETRON 4MG/2ML VIAL As Ordered ONE (07:12)
[2021-03-07] MEDS ORDERED: MIDAZOLAM INJ 2MG/2ML VIAL (J2250 PER 1MG) As Ordered ONE (07:12)
[2021-03-07] MEDS ORDERED: dexameTHASONE 4 MG/ML 1ML VIAL (J1100 PER 1MG) As Ordered ONE (07:12)
[2021-03-07] MEDS ORDERED: fentaNYL 100 MCG/2 ML INJECTION As Ordered ONE (07:12)
[2021-03-07] MEDS ORDERED: HYDROmorphone HCL 2MG/ML 1ML VIAL As Ordered ONE (07:12)
[2021-03-07] MEDS ORDERED: propofoL 200 MG/20 ML VIAL As Ordered ONE (07:13)
[2021-03-07] MEDS ORDERED: LIDOCAINE 2% 100MG/5ML SDV (FOR ANES.) As Ordered ONE (07:13)
[2021-03-07] MEDS ORDERED: ROCURONIUM BROMIDE 50 MG/5 ML VIAL As Ordered ONE ×5 (07:13→11:46)
[2021-03-07] MEDS ORDERED: ePHEDrine SULFATE 25 MG/5 ML(5MG/ML) SYRINGE As Ordered ONE (07:59)
[2021-03-07] MEDS ORDERED: ACETAMINOPHEN 1000MG 100ML IV BTL (OFIRMEV) (J0131 PER 10MG) As Ordered ONE ×2 (08:04→14:54)
[2021-03-07] MEDS ORDERED: SUGAMMADEX SODIUM 500 MG/5 ML VIAL (BRIDION) As Ordered ONE (08:10)
[2021-03-07] MEDS ORDERED: cefoTEtan INJ 1GM VIAL (S0074 PER 500MG) As Ordered ONE (11:21)
[2021-03-07] MEDS ORDERED: ONDANSETRON 4MG/2ML VIAL IV PRN ×2 (14:05→14:30)
[2021-03-07] MEDS ORDERED: PERCOCET 5MG/325MG TAB PO PRN ×2 (14:05→14:30)
[2021-03-07] MEDS ORDERED: DEXTROSE 50% 50 ML SYRINGE IV PRN (14:05)
[2021-03-07] MEDS ORDERED: GLUCOSE 4GM CHEW TABLET PO PRN (14:05)
[2021-03-07] MEDS ORDERED: ACETAMINOPHEN TAB 650MG DOSE (2X325MG) PO PRN (14:05)
[2021-03-07] MEDS ORDERED: GLUCAGON INJ 1MG VIAL SC PRN (14:05)
[2021-03-07] MEDS ORDERED: METOCLOPRAMIDE INJ 10MG/2ML VIAL (J2765 PER 1) IV PRN (14:30)
[2021-03-07] MEDS ORDERED: LR 1,000 ML IV SCH ×2 (14:30→14:40)
[2021-03-07] MEDS: fentaNYL 100 MCG/2 ML INJECTION IV PRN ×4 (15:04→15:30)
[2021-03-07] MEDS ORDERED: FLUO-96 PO (16:15)
[2021-03-07] MEDS ORDERED: VITMTA PO (16:15)
[2021-03-07] MEDS ORDERED: OMEP-173 PO (16:15)
[2021-03-07] MEDS ORDERED: DICL50TA2 PO (16:15)
[2021-03-07] MEDS ORDERED: HOME MED LIST COMPLETE! XX SCH (16:20)
[2021-03-07] MEDS: GABAPENTIN 400MG CAP PO SCH ×2 (17:59→22:24)
[2021-03-07] MEDS: KETOROLAC 30 MG/ML 1ML VIAL IV SCH ×2 (17:59→22:25)
[2021-03-07] MEDS: LR 1,000 ML IV SCH (17:59)
[2021-03-07] MEDS: MECLIZINE 25 MG TABLET PO SCH (22:24)
[2021-03-07] MEDS: SENOKOT S TAB PO SCH (22:24)
[2021-03-07] MEDS: TOLTERODINE (DETROL) 2 MG TAB PO SCH (22:24)
[2021-03-08] MEDS: LR 1,000 ML IV SCH ×3 (00:12→16:20)
[2021-03-08] MEDS: PERCOCET 5MG/325MG TAB PO PRN ×4 (00:13→22:25)
[2021-03-08 02:00] VITALS: BP 109/55
[2021-03-08 06:00] VITALS: BP 109/63
[2021-03-08] MEDS: KETOROLAC 30 MG/ML 1ML VIAL IV SCH ×4 (06:18→22:18)
[2021-03-08 07:08] LABS: BASO % 0.3 % (0.0-1.0); EOS # 0.3 10^3/uL (0.0-0.5); EOS % 2.5 % (0.0-3.0); HEMATOCRIT 41.1 % (42.0-52.0); LYMPH # 1.6 10^3/uL (1.5-5.0); LYMPH % 15.3 % (24.0-44.0); MEAN CORPUSCULAR HEMOGLOBIN 30.8 pg (27.0-33.0); MEAN CORPUSCULAR HGB CONC 31.6 g/dl (32.0-36.5); MEAN CORPUSCULAR VOLUME 97.4 fl (80.0-96.0); MONO % 9.2 % (2.0-8.0); NEUTROPHILS # 7.7 10^3/uL (1.5-8.5); NEUTROPHILS % 72.4 % (36.0-66.0); PLATELET COUNT, AUTOMATED 213 10^3/uL (150-450); RED BLOOD COUNT 4.22 10^6/uL (4.30-6.10); WHITE BLOOD COUNT 10.6 10^3/uL (4.0-10.0)
[2021-03-08 07:25] LABS: BLOOD UREA NITROGEN 14 MG/DL (7-18); CALCIUM LEVEL 7.9 MG/DL (8.8-10.2); CARBON DIOXIDE LEVEL 30 MEQ/L (21-32); CHLORIDE LEVEL 107 MEQ/L (98-107); CREATININE FOR GFR 0.76 MG/DL (0.70-1.30); GLOMERULAR FILTRATION RATE > 60.0 (>42); GLUCOSE, FASTING 100 MG/DL (70-100); POTASSIUM SERUM 4.3 MEQ/L (3.5-5.1); SODIUM LEVEL 141 MEQ/L (136-145)
[2021-03-08] MEDS: ENOXAPARIN 40MG/0.4ML SYRINGE (J1650 PER 10MG) SC SCH (09:06)
[2021-03-08] MEDS: PANTOPRAZOLE 40MG VIAL (C9113 PER 1) IV SCH (09:06)
[2021-03-08] MEDS: ROSUVASTATIN 10 MG TAB (CRESTOR) PO SCH (09:07)
[2021-03-08] MEDS: GABAPENTIN 400MG CAP PO SCH ×3 (09:07→22:17)
[2021-03-08] MEDS: FINASTERIDE 5 MG TAB PO SCH (09:07)
[2021-03-08] MEDS: MECLIZINE 25 MG TABLET PO SCH ×2 (09:07→22:16)
[2021-03-08] MEDS: TAMSULOSIN 0.4 MG CAP PO SCH (09:07)
[2021-03-08] MEDS: TOLTERODINE (DETROL) 2 MG TAB PO SCH ×2 (09:07→22:16)
[2021-03-08] MEDS: SENOKOT S TAB PO SCH ×2 (09:07→22:03)
[2021-03-08] MEDS: metFORMIN (GLUCOPHAGE) 500MG TAB PO SCH (09:07)
[2021-03-08 22:00] VITALS: BP 126/63
[2021-03-08] MEDS: DICLOFENAC 1% TOP SCH (22:17)
[2021-03-09] MEDS: MORPHINE 2 MG/ML 1ML VIAL (J2270) IV PRN ×3 (03:44→21:03)
[2021-03-09] MEDS: PERCOCET 5MG/325MG TAB PO PRN ×3 (04:45→17:29)
[2021-03-09] MEDS: KETOROLAC 30 MG/ML 1ML VIAL IV SCH ×3 (04:45→17:30)
[2021-03-09 06:00] VITALS: BP 132/65
[2021-03-09 06:39] LABS: BASO % 0.2 % (0.0-1.0); EOS # 0.6 10^3/uL (0.0-0.5); EOS % 5.7 % (0.0-3.0); HEMATOCRIT 39.5 % (42.0-52.0); HEMOGLOBIN 12.6 g/dl (13.5-17.5); LYMPH # 1.4 10^3/uL (1.5-5.0); LYMPH % 14.2 % (24.0-44.0); MEAN CORPUSCULAR HEMOGLOBIN 31.1 pg (27.0-33.0); MEAN CORPUSCULAR HGB CONC 31.9 g/dl (32.0-36.5); MEAN CORPUSCULAR VOLUME 97.5 fl (80.0-96.0); MONO % 10.6 % (2.0-8.0); NEUTROPHILS # 6.6 10^3/uL (1.5-8.5); NEUTROPHILS % 68.8 % (36.0-66.0); PLATELET COUNT, AUTOMATED 233 10^3/uL (150-450); RED BLOOD COUNT 4.05 10^6/uL (4.30-6.10); WHITE BLOOD COUNT 9.6 10^3/uL (4.0-10.0)
[2021-03-09 07:05] LABS: BLOOD UREA NITROGEN 8 MG/DL (7-18); CALCIUM LEVEL 7.9 MG/DL (8.8-10.2); CARBON DIOXIDE LEVEL 32 MEQ/L (21-32); CHLORIDE LEVEL 108 MEQ/L (98-107); CREATININE FOR GFR 0.58 MG/DL (0.70-1.30); GLOMERULAR FILTRATION RATE > 60.0 (>42); GLUCOSE, FASTING 96 MG/DL (70-100); SODIUM LEVEL 141 MEQ/L (136-145)
[2021-03-09 08:15] LABS: C REACTIVE PROTEIN QUANTITATIV 7.12 MG/DL (0.00-0.30)
[2021-03-09] MEDS: SENOKOT S TAB PO SCH ×2 (09:00→20:42)
[2021-03-09] MEDS: PANTOPRAZOLE 40MG VIAL (C9113 PER 1) IV SCH (10:28)
[2021-03-09] MEDS: ROSUVASTATIN 10 MG TAB (CRESTOR) PO SCH (10:29)
[2021-03-09] MEDS: GABAPENTIN 400MG CAP PO SCH ×3 (10:29→21:02)
[2021-03-09] MEDS: TAMSULOSIN 0.4 MG CAP PO SCH (10:30)
[2021-03-09] MEDS: MECLIZINE 25 MG TABLET PO SCH ×2 (10:30→21:02)
[2021-03-09] MEDS: FINASTERIDE 5 MG TAB PO SCH (10:31)
[2021-03-09] MEDS: ENOXAPARIN 40MG/0.4ML SYRINGE (J1650 PER 10MG) SC SCH (10:31)
[2021-03-09] MEDS: TOLTERODINE (DETROL) 2 MG TAB PO SCH ×2 (10:31→21:02)
[2021-03-09] MEDS: metFORMIN (GLUCOPHAGE) 500MG TAB PO SCH (10:32)
[2021-03-09] MEDS: DICLOFENAC 1% TOP SCH ×3 (10:33→21:03)
[2021-03-09 22:00] VITALS: BP 123/66
[2021-03-10] MEDS: KETOROLAC 30 MG/ML 1ML VIAL IV SCH ×3 (00:18→11:37)
[2021-03-10] MEDS: PERCOCET 5MG/325MG TAB PO PRN (05:08)
[2021-03-10 06:00] VITALS: BP 121/68
[2021-03-10 06:35] LABS: BASO % 0.3 % (0.0-1.0); EOS # 0.6 10^3/uL (0.0-0.5); EOS % 6.3 % (0.0-3.0); HEMATOCRIT 37.7 % (42.0-52.0); HEMOGLOBIN 12.2 g/dl (13.5-17.5); LYMPH # 1.5 10^3/uL (1.5-5.0); LYMPH % 15.6 % (24.0-44.0); MEAN CORPUSCULAR HEMOGLOBIN 31.3 pg (27.0-33.0); MEAN CORPUSCULAR HGB CONC 32.4 g/dl (32.0-36.5); MEAN CORPUSCULAR VOLUME 96.7 fl (80.0-96.0); MONO # 1.1 10^3/uL (0.0-0.8); MONO % 11.6 % (2.0-8.0); NEUTROPHILS # 6.3 10^3/uL (1.5-8.5); PLATELET COUNT, AUTOMATED 232 10^3/uL (150-450); WHITE BLOOD COUNT 9.6 10^3/uL (4.0-10.0)
[2021-03-10 06:57] LABS: BLOOD UREA NITROGEN 13 MG/DL (7-18); CALCIUM LEVEL 8.2 MG/DL (8.8-10.2); CARBON DIOXIDE LEVEL 29 MEQ/L (21-32); CHLORIDE LEVEL 109 MEQ/L (98-107); CREATININE FOR GFR 0.67 MG/DL (0.70-1.30); GLOMERULAR FILTRATION RATE > 60.0 (>42); GLUCOSE, FASTING 109 MG/DL (70-100); POTASSIUM SERUM 3.9 MEQ/L (3.5-5.1); SODIUM LEVEL 143 MEQ/L (136-145)
[2021-03-10 08:00] VITALS: BP 115/64
[2021-03-10] MEDS: SENOKOT S TAB PO SCH (09:00)
[2021-03-10] MEDS: ROSUVASTATIN 10 MG TAB (CRESTOR) PO SCH (09:26)
[2021-03-10] MEDS: GABAPENTIN 400MG CAP PO SCH (09:26)
[2021-03-10] MEDS: TAMSULOSIN 0.4 MG CAP PO SCH (09:26)
[2021-03-10] MEDS: metFORMIN (GLUCOPHAGE) 500MG TAB PO SCH (09:27)
[2021-03-10] MEDS: FINASTERIDE 5 MG TAB PO SCH (09:27)
[2021-03-10] MEDS: PANTOPRAZOLE 40MG VIAL (C9113 PER 1) IV SCH (09:27)
[2021-03-10] MEDS: MECLIZINE 25 MG TABLET PO SCH (09:27)
[2021-03-10] MEDS: TOLTERODINE (DETROL) 2 MG TAB PO SCH (09:27)
[2021-03-10] MEDS: ENOXAPARIN 40MG/0.4ML SYRINGE (J1650 PER 10MG) SC SCH (09:28)
[2021-03-10] MEDS: DICLOFENAC 1% TOP SCH (09:29)
[2021-05-03] MEDS ORDERED: CAPE1TAB2 PO (09:09)
[2021-05-06] MEDS ORDERED: CAPE1TAB2 PO (14:22)
[2021-05-10] MEDS ORDERED: CAPE1TAB2 PO (13:19)
[2021-06-06] MEDS ORDERED: CAPE1TAB2 PO (15:19)
[2021-06-09] MEDS ORDERED: MAGICMW SSP (16:07)
[2021-07-05] MEDS ORDERED: CAPE1TAB2 PO (14:01)
[2021-07-06] MEDS ORDERED: CAPE1TAB2 PO (07:57)
[2021-07-25] MEDS ORDERED: UREA20CR4 TOP ×2 (09:38→15:36)
[2021-07-25] MEDS ORDERED: CAPE1TAB2 PO (15:36)
[2021-07-26] MEDS ORDERED: CAPE1TAB2 PO (11:58)
[2021-07-27] MEDS ORDERED: CAPE1TAB2 PO (12:53)
[2021-07-27] MEDS ORDERED: UREA20CR4 TOP (13:02)
[2021-07-28] MEDS ORDERED: FLON1SPR (14:02)
[2021-07-29] MEDS ORDERED: UREA20CR4 TOP (21:43)
[2021-09-30] MEDS ORDERED: CAPE1TAB2 PO (15:01)
== END 2021-03-10 11:47 | disposition home or self-care (01) | DRG 330 ==
LOC: M OR 06:08 → M MSPAV 16:12
PROVIDERS: ADMIT Surgery; ATTEND Surgery
PROC: 0DBL4ZZ Excision of Transverse Colon, Percutaneous Endoscopic Approach (ICD-10-PCS; 2021-03-07)
PROC: 0DBN4ZZ Excision of Sigmoid Colon, Percutaneous Endoscopic Approach (ICD-10-PCS; 2021-03-07)
PROC: 8E0W4CZ Robotic Assisted Procedure of Trunk Region, Percutaneous Endoscopic Approach (ICD-10-PCS; 2021-03-07)
PROC: 0DBM4ZZ Excision of Descending Colon, Percutaneous Endoscopic Approach (ICD-10-PCS; principal; 2021-03-07 07:30)
DX: Z43.3 Encounter for attention to colostomy (principal); C18.5 Malignant neoplasm of splenic flexure; E11.42 Type 2 diabetes mellitus with diabetic polyneuropathy; E78.5 Hyperlipidemia, unspecified; N40.0 Benign prostatic hyperplasia without lower urinary tract symptoms; R42 Dizziness and giddiness; M19.90 Unspecified osteoarthritis, unspecified site; K21.9 Gastro-esophageal reflux disease without esophagitis; N32.89 Other specified disorders of bladder; Z79.84 Long term (current) use of oral hypoglycemic drugs; Z79.891 Long term (current) use of opiate analgesic; Z79.899 Other long term (current) drug therapy; Z90.49 Acquired absence of other specified parts of digestive tract; Z87.891 Personal history of nicotine dependence

== ENCOUNTER → 2021-04-22 | Outpatient (CLI) | payer OTHER ==
[~2021-04-22] MED LIST changes: -ALVIMOPAN 12 MG CAPSULE (ENTEREG) PO ONE; -CelecoXIB 400 MG CAP PO ONE; -FLUO-96 PO; +FLUO20CA20 PO; +GASTROGRAFIN SOLUTION 30ML (Q9963) As Ordered ONE; -HEPARIN SOD (PORCINE) 5000UNITS/ML 1ML VIAL/SYRINGE SQ ONE; +ISOVUE-370 76% 100ML VIAL As Ordered ONE; -LR 1,000 ML IV ONE; -OMEP-173 PO; +OMEP-218 PO; +VITMTA PO; -cefoTEtan DISODIUM 2 GM in D5W MINI-BAG PLUS 50 ML IV ONE; -metroNIDAZOLE 500 MG in IV 1 EA IV ONE
--- NOTE | 2021-04-22 21:09 | REP ---
INDICATION: COLON CA F/U COMPARISON: 01/13/2021 TECHNIQUE: Axial contrast enhanced images from the thoracic inlet to the upper abdomen with coronal and sagittal reformations using 75 ml Isovue 370 intravenous contrast material. [address] CT examination was performed using the following dose reduction techniques: Automated exposure control, adjustment of mA and/or kv according to the patient's size, and use of iterative reconstruction technique. FINDINGS: The lung bill demonstrate improved aeration as compared to prior examination and chronic emphysematous changes along with scattered somewhat ill-defined/linear fibroatelectatic changes are again noted involving lingula and right middle lobe. Few small noncalcified nodular densities likely representing focal areas of scarring are identified and unchanged. No acute consolidation, obvious suspicious nodule or mass lesion. No effusion. No pneumothorax. Tracheobronchial tree is patent. No axillary, hilar, or mediastinal adenopathy. Thoracic aorta, pulmonary vasculature, and heart/pericardium are relatively stable/normal. Atherosclerotic changes are identified. No pericardial effusion. No aortic aneurysm or dissection. Surrounding musculoskeletal structures demonstrate degenerative changes without acute osseous abnormality. IMPRESSION: 1. Chronic emphysematous changes and moderate ill-defined/linear fibroatelectatic changes essentially unchanged. 2. No acute, new pleuroparenchymal process or nodule/mass identified. No definite evidence for metastatic disease appreciated. <Electronically signed by Jason Pizarro > 04/22/21 [id number]
--- NOTE | 2021-04-22 21:25 | REP ---
INDICATION: COLON CA F/U. COMPARISON: 02/17/2021, 01/16/2021 TECHNIQUE: Axial contrast-enhanced images from the lung bases to the pubic symphysis using oral and 100 cc Isovue 370 intravenous contrast material. Delayed images of the abdomen obtained along with coronal and sagittal reformations. This CT examination was performed using the following dose reduction techniques: Automated exposure control, adjustment of mA and/or kv according to the patient's size, and the use of iterative reconstruction technique. FINDINGS: Liver demonstrates fatty infiltration without focal hepatic lesion. Spleen, pancreas, gallbladder, and bilateral adrenal glands are normal. Right kidney includes 3 cm simple and 2.6 cm presumed complex cyst. Left kidney includes few small cortical and peripelvic cysts along with 5.7 cm upper pole simple cyst. Patient is status post segmental resection of the descending colon at the site of prior obstruction. There is evidence for fecal stasis throughout the colon along with sigmoid diverticulosis. No evidence for bowel obstruction or free air/free fluid to suggest perforation. Evaluation of the pelvis is limited due to significant beam hardening artifact from bilateral hip prostheses despite using metallic artifact reduction technique. Collapsed bladder and presumed age-appropriate prostate gland are suggested along with sigmoid diverticulosis. No obvious pelvic fluid.. No ascites. No free air. No intraperitoneal or retroperitoneal adenopathy. Abdominal aorta and vasculature demonstrates atherosclerotic changes without aneurysm or dissection. Musculoskeletal structures demonstrate extensive degenerative changes without acute osseous abnormality. IMPRESSION: 1. Status post focal resection at the level of the descending colon. Current examination suggests fecal stasis without evidence for bowel obstruction. No free air or free fluid. 2. No adenopathy or evidence for metastatic disease. 3. Hepatosteatosis. 4. Sigmoid diverticulosis without acute diverticulitis. 5. Renal lesions likely representing simple and complex cysts may warrant ultrasound evaluation/confirmation. <Electronically signed by Jason Pizarro > 04/22/214
== END ==
LOC: M RAD 15:49
PROVIDERS: ATTEND Internal Medicine Hematology & Oncology
DX: C18.9 Malignant neoplasm of colon, unspecified (principal); K76.0 Fatty (change of) liver, not elsewhere classified
CPT/HCPCS: 71260; 74177; Q9963; Q9967

== ENCOUNTER → 2021-06-10 | Outpatient (REF) | payer OTHER ==
[~2021-06-10] MED LIST changes: +CAPE1TAB2 PO; -GASTROGRAFIN SOLUTION 30ML (Q9963) As Ordered ONE; -ISOVUE-370 76% 100ML VIAL As Ordered ONE; +MAGICMW SSP
[2021-06-10 18:02] LABS: APPEARANCE, URINE HAZY (CLEAR); BACTERIA, URINE AUTO NEGATIVE (NEGATIVE); BILIRUBIN, URINE AUTO NEGATIVE (NEGATIVE); BLOOD, URINE BLOOD NEGATIVE (NEGATIVE); CALCIUM OXALATE CRYSTALS SMALL; COLOR, URINE YELLOW (YELLOW); GLUCOSE, URINE (UA) AUTO NEGATIVE (NEGATIVE); KETONE, URINE AUTO NEGATIVE (NEGATIVE); LEUKOCYTE ESTERASE, URINE AUTO 2+ (NEGATIVE); MUCUS, URINE SMALL (NEGATIVE); NITRITE, URINE AUTO NEGATIVE (NEGATIVE); PROTEIN, URINE AUTO 1+ mg/dL (NEGATIVE); RBC, URINE AUTO 1 /HPF (0-3); SPECIFIC GRAVITY URINE AUTO 1.028 (1.002-1.035); SQUAMOUS EPITHELIAL CELL UR AU 0 /HPF (0-6); UROBILINOGEN, URINE AUTO 0.2 mg/dL (0.0-2.0); WBC, URINE AUTO 9 /HPF (0-3)
== END ==
LOC: M SMT 17:01
PROVIDERS: ATTEND Urology
DX: R35.0 Frequency of micturition (principal)

== ENCOUNTER 2021-07-28 11:32 | Emergency (ER) | payer OTHER ==
[~2021-07-28] VITALS: Ht 190.5 cm; Wt 117.8 kg
[~2021-07-28 11:32] MED LIST changes: +UREA20CR4 TOP
--- NOTE | 2021-07-28 13:04 | REP ---
INDICATION: fracture. COMPARISON: None. TECHNIQUE: AP and frog-lateral views of the mid and distal femur. FINDINGS: See the AP pelvis and left hip report. There are no additional fractures. IMPRESSION: As above. <Electronically signed by Henry Hastings > 07/28/21 1300
[2021-07-28 13:05] LABS: BASO % 0.4 % (0.0-1.0); EOS # 0.1 10^3/uL (0.0-0.5); EOS % 1.1 % (0.0-3.0); HEMATOCRIT 36.4 % (42.0-52.0); HEMOGLOBIN 12.3 g/dl (13.5-17.5); LYMPH # 1.1 10^3/uL (1.5-5.0); LYMPH % 12.8 % (24.0-44.0); MEAN CORPUSCULAR HEMOGLOBIN 33.6 pg (27.0-33.0); MEAN CORPUSCULAR HGB CONC 33.8 g/dl (32.0-36.5); MEAN CORPUSCULAR VOLUME 99.5 fl (80.0-96.0); MONO # 0.9 10^3/uL (0.0-0.8); MONO % 11.1 % (2.0-8.0); NEUTROPHILS # 6.3 10^3/uL (1.5-8.5); NEUTROPHILS % 74.1 % (36.0-66.0); PLATELET COUNT, AUTOMATED 222 10^3/uL (150-450); RED BLOOD COUNT 3.66 10^6/uL (4.30-6.10); WHITE BLOOD COUNT 8.5 10^3/uL (4.0-10.0)
[2021-07-28 13:17] LABS: INR 1.05; PARTIAL THROMBOPLASTIN TIME 25.9 SECONDS (25.9-37.0); PROTHROMBIN TIME 14.1 SECONDS (12.7-14.5)
[2021-07-28 13:29] LABS: ALBUMIN 3.4 GM/DL (3.2-5.2); ALT/SGPT 40 U/L (12-78); BILIRUBIN,DIRECT 0.3 MG/DL (0.0-0.2); BILIRUBIN,TOTAL 0.8 MG/DL (0.2-1.0); BLOOD UREA NITROGEN 17 MG/DL (7-18); CALCIUM LEVEL 8.5 MG/DL (8.8-10.2); CARBON DIOXIDE LEVEL 27 MEQ/L (21-32); CHLORIDE LEVEL 108 MEQ/L (98-107); CREATININE FOR GFR 0.82 MG/DL (0.70-1.30); GLOMERULAR FILTRATION RATE > 60.0 (>42); GLUCOSE, FASTING 117 MG/DL (70-100); LIPASE 39 U/L (73-393); POTASSIUM SERUM 4.1 MEQ/L (3.5-5.1); SODIUM LEVEL 141 MEQ/L (136-145); TOTAL PROTEIN 6.4 GM/DL (6.4-8.2)
[2021-07-28 13:34] LABS: RSV AMPLIFICATION NEGATIVE (NEGATIVE)
[2021-07-28] MEDS: MORPHINE 2 MG/ML 1ML VIAL (J2270) IV PRN ×2 (13:38→15:44)
[2021-07-28] MEDS ORDERED: SUMA100T2 PO (14:02)
[2021-07-28] MEDS ORDERED: [UNRECOGNIZED DRUG - REMARK] (14:02)
[2021-07-28] MEDS ORDERED: FLON1SPR NARES (14:02)
[2021-07-28] MEDS ORDERED: VESI10TA2 PO (14:02)
[2021-07-28] MEDS ORDERED: HYDR-4517 PO ×2 (14:02)
[2021-07-28] MEDS ORDERED: GABA-283 PO (14:02)
[2021-07-28] MEDS ORDERED: DICL1GEL TOP (14:02)
[2021-07-28] MEDS ORDERED: HOME MED LIST COMPLETE! XX SCH (14:05)
--- NOTE | 2021-07-28 14:49 | REP ---
INDICATION: preop. COMPARISON: 01/13/2021. TECHNIQUE: Single portable AP view of the chest was performed. FINDINGS: There is mild fibrotic scarring which appears stable, with no superimposed acute infiltrate. The heart is not significantly enlarged. There is mild calcification and tortuosity of the thoracic aorta. The mediastinal silhouette is unchanged. There are degenerative changes of the spine. IMPRESSION: No acute pulmonary disease. <Electronically signed by Fran Murray > 07/28/21 [id number]
--- NOTE | 2021-07-28 16:00 | REP ---
INDICATION: fall. COMPARISON: None TECHNIQUE: AP pelvis two views left hip FINDINGS: There are bilateral hip prostheses. There is a fracture involving the proximal femur on the left. The prosthetic hip joint appears maintained. No additional fractures are identified. IMPRESSION: Left hip fracture as described above. There are no priors for comparison. <Electronically signed by Henry Hastings > 07/28/21 [id number]
[2021-07-28] MEDS ORDERED: MORPHINE 4 MG/ML 1ML VIAL/SYRINGE (J2270) IV PRN (17:35)
[2021-07-28 18:30] VITALS: BP 157/96
--- NOTE | 2021-07-28 20:32 | ECGEPIP ---
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
--- NOTE | 2021-07-29 10:11 | CR ---
CONSULTATION DATE: 07/28/2021 CHIEF COMPLAINT: Left periprosthetic hip fracture around a total hip arthroplasty. HISTORY OF PRESENT ILLNESS: I was called by the Emergency Department physician, Dr. Kilpatrick. The patient had a fall and sustained a proximal femur fracture around the total hip arthroplasty performed by a 's Affairs surgeon 15 to 20 years ago. PHYSICAL EXAMINATION: Per the QMP, it is closed, neurovascularly intact. RADIOGRAPHS: Radiographs were reviewed of the hip showing a total hip arthroplasty and a fracture of the proximal femur. It looks like the femoral stem is loose. ASSESSMENT AND PLAN: This 76-year-old man with periprosthetic hip fracture. This is beyond my scope of practice. Typically this would be performed by a hip arthroplasty surgeon as this necessitates revision. I spoke with the hip surgeons in our office, Dr. Flores and Dr. Oconnor. They are not accepting the case; therefore, this man will have to be transferred to a center with a surgeon willing to take on this patient. I communicated this to the officer lieutenant, Jewell, in our office, as well as the two surgeons, as well as the emergency department physician. No further questions or concerns. RADHA
[2021-07-29] MEDS ORDERED: UREA20CR4 TOP (21:43)
== END 2021-07-28 18:41 | disposition short-term general hospital (02) ==
LOC: M ED 11:32 → EDBD 11:32 → M ED 18:41
DX: S72.92XA Unspecified fracture of left femur, initial encounter for closed fracture (principal); M97.02XA Periprosthetic fracture around internal prosthetic left hip joint, initial encounter; W01.0XXA Fall on same level from slipping, tripping and stumbling without subsequent striking against object, initial encounter; Y92.009 Unspecified place in unspecified non-institutional (private) residence as the place of occurrence of the external cause; Y93.9 Activity, unspecified; Y99.9 Unspecified external cause status; Z96.643 Presence of artificial hip joint, bilateral; E11.9 Type 2 diabetes mellitus without complications; E78.5 Hyperlipidemia, unspecified; N40.0 Benign prostatic hyperplasia without lower urinary tract symptoms; K21.9 Gastro-esophageal reflux disease without esophagitis; Z87.891 Personal history of nicotine dependence; Z79.899 Other long term (current) drug therapy
CPT/HCPCS: 71045; 73502; 73552; 80048; 80076; 83690; 85025; 85610; 85730; 86850; 86900; 86901; 87631; 93005; 93041; 96374; 96376; 99285; J2270

== ENCOUNTER → 2021-08-31 | Outpatient (REF) | payer OTHER ==
[~2021-08-31] MED LIST changes: +DICL1GEL TOP; +FLON1SPR NARES; +VESI10TA2 PO; +[UNRECOGNIZED DRUG - REMARK]
[2021-08-31 17:09] LABS: BASO # 0.1 10^3/uL (0.0-0.2); BASO % 0.6 % (0.0-1.0); EOS # 0.4 10^3/uL (0.0-0.5); EOS % 5.3 % (0.0-3.0); HEMATOCRIT 38.5 % (42.0-52.0); HEMOGLOBIN 11.8 g/dl (13.5-17.5); LYMPH # 1.2 10^3/uL (1.5-5.0); LYMPH % 15.4 % (24.0-44.0); MEAN CORPUSCULAR HEMOGLOBIN 32.1 pg (27.0-33.0); MEAN CORPUSCULAR HGB CONC 30.6 g/dl (32.0-36.5); MEAN CORPUSCULAR VOLUME 104.6 fl (80.0-96.0); MONO # 0.8 10^3/uL (0.0-0.8); MONO % 9.9 % (2.0-8.0); NEUTROPHILS # 5.4 10^3/uL (1.5-8.5); PLATELET COUNT, AUTOMATED 316 10^3/uL (150-450); RED BLOOD COUNT 3.68 10^6/uL (4.30-6.10); WHITE BLOOD COUNT 7.9 10^3/uL (4.0-10.0)
[2021-08-31 17:16] LABS: AMORPHOUS SEDIMENT SMALL (NEGATIVE); APPEARANCE, URINE TURBID (CLEAR); BACTERIA, URINE AUTO NEGATIVE (NEGATIVE); BILIRUBIN, URINE AUTO NEGATIVE (NEGATIVE); BLOOD, URINE BLOOD NEGATIVE (NEGATIVE); CALCIUM OXALATE CRYSTALS SMALL; COLOR, URINE AMBER (YELLOW); GLUCOSE, URINE (UA) AUTO NEGATIVE (NEGATIVE); KETONE, URINE AUTO TRACE mg/dL (NEGATIVE); LEUKOCYTE ESTERASE, URINE AUTO 2+ (NEGATIVE); MUCUS, URINE MODERATE (NEGATIVE); NITRITE, URINE AUTO NEGATIVE (NEGATIVE); PROTEIN, URINE AUTO NEGATIVE (NEGATIVE); RBC, URINE AUTO 2 /HPF (0-3); SPECIFIC GRAVITY URINE AUTO 1.025 (1.002-1.035); SQUAMOUS EPITHELIAL CELL UR AU 1 /HPF (0-6); UROBILINOGEN, URINE AUTO 0.2 mg/dL (0.0-2.0); WBC, URINE AUTO 8 /HPF (0-3)
[2021-08-31 17:52] LABS: ALBUMIN 3.2 GM/DL (3.2-5.2); ALT/SGPT 18 U/L (12-78); BILIRUBIN,TOTAL 0.3 MG/DL (0.2-1.0); BLOOD UREA NITROGEN 25 MG/DL (7-18); CALCIUM LEVEL 8.7 MG/DL (8.8-10.2); CARBON DIOXIDE LEVEL 29 MEQ/L (21-32); CHLORIDE LEVEL 105 MEQ/L (98-107); CREATININE FOR GFR 0.82 MG/DL (0.70-1.30); GLOMERULAR FILTRATION RATE > 60.0 (>42); GLUCOSE, FASTING 133 MG/DL (70-100); POTASSIUM SERUM 4.7 MEQ/L (3.5-5.1); SODIUM LEVEL 140 MEQ/L (136-145); TOTAL PROTEIN 6.3 GM/DL (6.4-8.2)
[2021-08-31 19:42] LABS: HEMOGLOBIN A1c 5.2 %
== END ==
LOC: M LAB REF 16:50
PROVIDERS: ATTEND Internal Medicine
DX: C18.9 Malignant neoplasm of colon, unspecified (principal)

== ENCOUNTER → 2021-10-05 | Outpatient (CLI) | payer OTHER ==
[~2021-10-05] MED LIST changes: +FLUO-96 PO; -FLUO20CA20 PO; +GASTROGRAFIN SOLUTION 30ML (Q9963) ONE; +ISOVUE-370 76% 100ML VIAL ONE; +OMEP-173 PO; -OMEP-218 PO
== END ==
LOC: M PLAIMG 08:50
PROVIDERS: ATTEND Internal Medicine Medical Oncology
DX: C18.9 Malignant neoplasm of colon, unspecified (principal)
CPT/HCPCS: 71260; 74177; Q9963; Q9967

== ENCOUNTER 2021-10-17 21:45 | Emergency (ER) | payer OTHER ==
[~2021-10-17] VITALS: Ht 190.5 cm; Wt 122.0 kg
[~2021-10-17 21:45] MED LIST changes: +FLON1SPR; -FLON1SPR NARES; -GASTROGRAFIN SOLUTION 30ML (Q9963) ONE; -ISOVUE-370 76% 100ML VIAL ONE
[2021-10-17] MEDS ORDERED: NS 1,000 ML IV ONE (22:20)
[2021-10-17 22:50] LABS: BASO % 0.5 % (0.0-1.0); EOS # 0.1 10^3/uL (0.0-0.5); EOS % 1.2 % (0.0-3.0); HEMATOCRIT 40.8 % (42.0-52.0); HEMOGLOBIN 13.2 g/dl (13.5-17.5); LYMPH # 1.3 10^3/uL (1.5-5.0); LYMPH % 14.8 % (24.0-44.0); MEAN CORPUSCULAR HEMOGLOBIN 32.5 pg (27.0-33.0); MEAN CORPUSCULAR HGB CONC 32.4 g/dl (32.0-36.5); MEAN CORPUSCULAR VOLUME 100.5 fl (80.0-96.0); MONO # 0.7 10^3/uL (0.0-0.8); NEUTROPHILS # 6.5 10^3/uL (1.5-8.5); NEUTROPHILS % 75.3 % (36.0-66.0); PLATELET COUNT, AUTOMATED 213 10^3/uL (150-450); RED BLOOD COUNT 4.06 10^6/uL (4.30-6.10); WHITE BLOOD COUNT 8.6 10^3/uL (4.0-10.0)
[2021-10-17 23:20] LABS: BLOOD UREA NITROGEN 25 MG/DL (7-18); CALCIUM LEVEL 8.7 MG/DL (8.8-10.2); CARBON DIOXIDE LEVEL 28 MEQ/L (21-32); CHLORIDE LEVEL 110 MEQ/L (98-107); CREATININE FOR GFR 0.93 MG/DL (0.70-1.30); GLOMERULAR FILTRATION RATE > 60.0 (>42); GLUCOSE, FASTING 136 MG/DL (70-100); SODIUM LEVEL 145 MEQ/L (136-145)
[2021-10-17 23:24] LABS: MB/CK RELATIVE INDEX 1.72 (< OR =4)
[2021-10-17 23:46] VITALS: BP 143/67
[2021-10-18 00:26] LABS: CK-MB VALUE MASS 1.1 NG/ML (<3.6); MB/CK RELATIVE INDEX 2.08 (< OR =4)
[2021-10-18] MEDS ORDERED: CALC200T3 PO (02:00)
[2021-10-18] MEDS ORDERED: ACET-897 PO (02:00)
[2021-10-18] MEDS ORDERED: FERR1TAB8 PO (02:00)
[2021-10-18] MEDS ORDERED: MELA5TAB7 PO (02:00)
[2021-10-18] MEDS ORDERED: FURO20TA2 PO (02:00)
[2021-10-18] MEDS ORDERED: DICL1GEL3 TOP (02:00)
== END 2021-10-18 02:15 | disposition home or self-care (01) ==
LOC: EDBD 21:45 → M ED 21:45
DX: R42 Dizziness and giddiness (principal); C18.4 Malignant neoplasm of transverse colon; I67.9 Cerebrovascular disease, unspecified; J98.11 Atelectasis; G62.9 Polyneuropathy, unspecified; E11.9 Type 2 diabetes mellitus without complications; E78.5 Hyperlipidemia, unspecified; K21.9 Gastro-esophageal reflux disease without esophagitis; N40.0 Benign prostatic hyperplasia without lower urinary tract symptoms; Z79.899 Other long term (current) drug therapy

== ENCOUNTER 2021-12-06 06:09 | Inpatient (IN) | payer OTHER ==
[~2021-12-06] VITALS: Ht 188 cm; Wt 118.0 kg
[~2021-12-06 06:09] MED LIST changes: +ACET-897 PO; +CALC200T3 PO; -D31000TA2 PO; -DICL1GEL TOP; +DICL1GEL3 TOP; +DICL3GEL2 TOP; +FERR1TAB8 PO; +MELA5TAB7 PO; +VITA100093 PO
[2021-12-06 06:55] LABS: HEMATOCRIT 34.8 % (42.0-52.0); HEMOGLOBIN 11.9 g/dl (13.5-17.5); MEAN CORPUSCULAR HEMOGLOBIN 33.7 pg (27.0-33.0); MEAN CORPUSCULAR HGB CONC 34.2 g/dl (32.0-36.5); MEAN CORPUSCULAR VOLUME 98.6 fl (80.0-96.0); PLATELET COUNT, AUTOMATED 282 10^3/uL (150-450); RED BLOOD COUNT 3.53 10^6/uL (4.30-6.10); WHITE BLOOD COUNT 11.8 10^3/uL (4.0-10.0)
[2021-12-06 07:27] LABS: ALBUMIN 2.7 GM/DL (3.2-5.2); C REACTIVE PROTEIN QUANTITATIV 14.4 MG/DL (0.00-0.30); CALCIUM LEVEL 7.8 MG/DL (8.8-10.2); CREATININE FOR GFR 1.28 MG/DL (0.70-1.30); MAGNESIUM LEVEL 1.6 MG/DL (1.8-2.4); POTASSIUM SERUM 3.8 MEQ/L (3.5-5.1); TOTAL PROTEIN 5.3 GM/DL (6.4-8.2)
[2021-12-06 07:58] LABS: ANISOCYTOSIS 3+; LYMPHOCYTES 3 % (16-44); MONOCYTES 9 % (0-5); NEUTROPHILS 86 % (28-66); PLATELET ESTIMATE NORMAL (NORMAL)
[2021-12-06 07:59] LABS: OVALOCYTES 1+
[2021-12-06] MEDS ORDERED: MAG SULF 1GM/100ML (MAG RUN) 1 GM in IV 1 EA IV ONE (09:00)
[2021-12-06] MEDS: FLUoxetine 20MG CAP PO SCH (09:00)
[2021-12-06] MEDS: FINASTERIDE 5MG TAB PO SCH (09:00)
[2021-12-06] MEDS: OMEPRAZOLE 20MG CAP PO SCH (09:00)
[2021-12-06] MEDS: SOLIFENACIN 5 MG TAB PO SCH (09:00)
[2021-12-06] MEDS: ROSUVASTATIN 10 MG TAB (CRESTOR) PO SCH (09:00)
[2021-12-06] MEDS: TAMSULOSIN 0.4 MG CAP PO SCH (09:00)
[2021-12-06] MEDS ORDERED: NS 1,000 ML IV ONE (09:00)
[2021-12-06 09:32] LABS: ERYTHROCYTE SEDIMENTATION RATE 21 mm/hr (0-20)
[2021-12-06] MEDS ORDERED: NORCO, ANEXSIA 5/325MG TABLET (HYDROcodone/ACETAMINOPHEN) PO ONE (12:40)
[2021-12-06] MEDS ORDERED: DIGOXIN INJ 0.5 MG/2 ML AMP (J1160) IV STA (13:02)
[2021-12-06] MEDS ORDERED: CAPE1TAB2 PO (14:00)
[2021-12-06] MEDS ORDERED: HOME MED LIST COMPLETE! XX SCH (14:05)
[2021-12-06] MEDS ORDERED: GABAPENTIN 100 MG CAP PO ONE (14:05)
[2021-12-06] MEDS ORDERED: LOPERAMIDE 2 MG CAPLET PO PRN (15:55)
[2021-12-06] MEDS ORDERED: LOPERAMIDE 2 MG CAPLET PO ONE (15:55)
[2021-12-06] MEDS ORDERED: GLUCOSE 4GM CHEW TABLET PO PRN (16:05)
[2021-12-06] MEDS ORDERED: DEXTROSE 50% 50 ML SYRINGE IV PRN (16:05)
[2021-12-06] MEDS ORDERED: GLUCAGON INJ 1MG VIAL SC PRN (16:05)
[2021-12-06] MEDS: NS 1,000 ML IV SCH ×2 (17:12→20:51)
[2021-12-06] MEDS: ACETAMINOPHEN 500 MG TAB PO SCH ×2 (17:12→20:51)
[2021-12-06] MEDS ORDERED: HumaLOG INSULIN (NovoLOG) PER UNIT SC SCH ×2 (17:30→21:00)
[2021-12-06] MEDS ORDERED: MORPHINE 2 MG/ML 1ML VIAL IV ONE (18:20)
[2021-12-06] MEDS: HEPARIN SOD (PORCINE) 5000UNITS/ML 1ML VIAL/SYRINGE SC SCH (19:09)
[2021-12-06] MEDS: MECLIZINE 25 MG TABLET PO SCH (20:50)
[2021-12-06] MEDS: GABAPENTIN 400MG CAP PO SCH (20:51)
[2021-12-06 22:29] VITALS: BP 119/56
[2021-12-06 22:38] VITALS: BP 109/63
[2021-12-06] MEDS: oxyCODONE 5MG TAB PO PRN (23:19)
[2021-12-07] MEDS: NS 1,000 ML IV SCH (01:32)
[2021-12-07] MEDS: HEPARIN SOD (PORCINE) 5000UNITS/ML 1ML VIAL/SYRINGE SC SCH ×3 (05:14→20:48)
[2021-12-07 05:31] VITALS: BP 121/57
[2021-12-07] MEDS: HumaLOG INSULIN (NovoLOG) PER UNIT SC SCH ×4 (06:00→18:00)
[2021-12-07 08:17] LABS: HEMATOCRIT 34.1 % (42.0-52.0); HEMOGLOBIN 11.9 g/dl (13.5-17.5); MEAN CORPUSCULAR HEMOGLOBIN 34.7 pg (27.0-33.0); MEAN CORPUSCULAR HGB CONC 34.9 g/dl (32.0-36.5); MEAN CORPUSCULAR VOLUME 99.4 fl (80.0-96.0); PLATELET COUNT, AUTOMATED 283 10^3/uL (150-450); RED BLOOD COUNT 3.43 10^6/uL (4.30-6.10); WHITE BLOOD COUNT 4.7 10^3/uL (4.0-10.0)
[2021-12-07] MEDS: MECLIZINE 25 MG TABLET PO SCH ×2 (08:34→20:48)
[2021-12-07] MEDS: ROSUVASTATIN 10 MG TAB (CRESTOR) PO SCH (08:35)
[2021-12-07] MEDS: TAMSULOSIN 0.4 MG CAP PO SCH (08:36)
[2021-12-07] MEDS: GABAPENTIN 400MG CAP PO SCH ×3 (08:37→20:45)
[2021-12-07] MEDS: OMEPRAZOLE 20MG CAP PO SCH (08:37)
[2021-12-07] MEDS: FINASTERIDE 5MG TAB PO SCH (08:38)
[2021-12-07] MEDS: FLUoxetine 20MG CAP PO SCH (08:38)
[2021-12-07] MEDS: ACETAMINOPHEN 500 MG TAB PO SCH ×3 (08:39→20:45)
[2021-12-07] MEDS: SOLIFENACIN 5 MG TAB PO SCH (08:39)
[2021-12-07 08:54] LABS: ALBUMIN 2.3 GM/DL (3.2-5.2); ALT/SGPT 20 U/L (12-78); BILIRUBIN,TOTAL 0.7 MG/DL (0.2-1.0); BLOOD UREA NITROGEN 12 MG/DL (7-18); CALCIUM LEVEL 7.7 MG/DL (8.8-10.2); CARBON DIOXIDE LEVEL 26 MEQ/L (21-32); CHLORIDE LEVEL 106 MEQ/L (98-107); CREATININE FOR GFR 0.62 MG/DL (0.70-1.30); GLOMERULAR FILTRATION RATE > 60.0 (>42); GLUCOSE, FASTING 107 MG/DL (70-100); MAGNESIUM LEVEL 1.8 MG/DL (1.8-2.4); POTASSIUM SERUM 3.5 MEQ/L (3.5-5.1); SODIUM LEVEL 139 MEQ/L (136-145)
[2021-12-07] MEDS: oxyCODONE 5MG TAB PO PRN (09:27)
[2021-12-07 09:53] LABS: ANISOCYTOSIS 3+; BASOPHILS 1 % (0-1); LYMPHOCYTES 15 % (16-44); MONOCYTES 22 % (0-5); NEUTROPHILS 59 % (28-66); OVALOCYTES 1+; PLATELET ESTIMATE NORMAL (NORMAL)
[2021-12-07] MEDS ORDERED: NORCO, ANEXSIA 5/325MG TABLET (HYDROcodone/ACETAMINOPHEN) PO ONE (10:25)
[2021-12-07] MEDS: D5W/0.9% SODIUM CHLORIDE 1,000 ML IV SCH ×2 (10:52→18:51)
[2021-12-07 13:40] VITALS: BP 105/63
[2021-12-07] MEDS ORDERED: MORPHINE 2 MG/ML 1ML VIAL IV ONE (14:00)
[2021-12-07 15:09] LABS: ANTI DOUBLE STRAND-DNA AB <1 IU/mL (0-9); ANTINUCLEAR ANTIBODIES DIRECT Positive (Negative); RNP ANTIBODIES 1.9 AI (0.0-0.9); SJOGREN'S ANTI SS-A <0.2 AI (0.0-0.9); SJOGREN'S ANTI SS-B <0.2 AI (0.0-0.9); SMITH ANTIBODIES <0.2 AI (0.0-0.9)
[2021-12-07 20:00] VITALS: BP 141/68
[2021-12-07] MEDS: ACYCLOVIR 200 MG CAPSULE PO SCH (20:45)
[2021-12-07] MEDS ORDERED: HumaLOG INSULIN (NovoLOG) PER UNIT SC SCH (21:00)
[2021-12-08] MEDS: D5W/0.9% SODIUM CHLORIDE 1,000 ML IV SCH ×2 (02:57→11:28)
[2021-12-08] MEDS ORDERED: ONDANSETRON 4MG/2ML VIAL IV PRN ×2 (03:25→08:00)
[2021-12-08 04:00] VITALS: BP 135/79
[2021-12-08] MEDS: oxyCODONE 5MG TAB PO PRN ×3 (04:05→21:40)
[2021-12-08] MEDS ORDERED: PROMETHAZINE 25MG/ML 1ML VIAL IV PRN (05:20)
[2021-12-08] MEDS: HEPARIN SOD (PORCINE) 5000UNITS/ML 1ML VIAL/SYRINGE SC SCH ×3 (05:41→21:41)
[2021-12-08] MEDS: ACYCLOVIR 200 MG CAPSULE PO SCH ×3 (06:00→21:38)
[2021-12-08] MEDS ORDERED: ISOVUE-370 76% 100ML VIAL As Ordered ONE (06:08)
[2021-12-08 07:26] LABS: ALBUMIN 2.3 GM/DL (3.2-5.2); ALT/SGPT 18 U/L (12-78); BILIRUBIN,TOTAL 0.9 MG/DL (0.2-1.0); BLOOD UREA NITROGEN 11 MG/DL (7-18); CALCIUM LEVEL 7.7 MG/DL (8.8-10.2); CARBON DIOXIDE LEVEL 28 MEQ/L (21-32); CHLORIDE LEVEL 104 MEQ/L (98-107); GLOMERULAR FILTRATION RATE > 60.0 (>42); GLUCOSE, FASTING 150 MG/DL (70-100); MAGNESIUM LEVEL 1.8 MG/DL (1.8-2.4); POTASSIUM SERUM 3.2 MEQ/L (3.5-5.1); SODIUM LEVEL 138 MEQ/L (136-145); TOTAL PROTEIN 5.6 GM/DL (6.4-8.2)
[2021-12-08] MEDS: HumaLOG INSULIN (NovoLOG) PER UNIT SC SCH ×3 (07:30→16:54)
[2021-12-08] MEDS ORDERED: POTASSIUM CHLORIDE 10MEQ SR TABLET PO ONE (07:40)
[2021-12-08 08:52] LABS: HEMATOCRIT 35.7 % (42.0-52.0); HEMOGLOBIN 12.4 g/dl (13.5-17.5); MEAN CORPUSCULAR HEMOGLOBIN 33.5 pg (27.0-33.0); MEAN CORPUSCULAR HGB CONC 34.7 g/dl (32.0-36.5); MEAN CORPUSCULAR VOLUME 96.5 fl (80.0-96.0); PLATELET COUNT, AUTOMATED 326 10^3/uL (150-450); WHITE BLOOD COUNT 5.5 10^3/uL (4.0-10.0)
[2021-12-08] MEDS: MECLIZINE 25 MG TABLET PO SCH ×2 (09:46→21:42)
[2021-12-08] MEDS: ROSUVASTATIN 10 MG TAB (CRESTOR) PO SCH (09:47)
[2021-12-08] MEDS: TAMSULOSIN 0.4 MG CAP PO SCH (09:47)
[2021-12-08] MEDS: FLUoxetine 20MG CAP PO SCH (09:48)
[2021-12-08] MEDS: ACETAMINOPHEN 500 MG TAB PO SCH ×3 (09:49→21:39)
[2021-12-08] MEDS: GABAPENTIN 400MG CAP PO SCH ×3 (09:51→21:38)
[2021-12-08] MEDS: OMEPRAZOLE 20MG CAP PO SCH (09:52)
[2021-12-08 10:21] LABS: ATYPICAL LYMPH 4 % (0-5); BASOPHILS 1 % (0-1); DOHLE BODIES 1+; LYMPHOCYTES 9 % (16-44); METAMYELOCYTES 3 % (0-0); MONOCYTES 26 % (0-5); NEUTROPHILS 29 % (28-66); OVALOCYTES 3+
[2021-12-08 10:22] LABS: PLATELET ESTIMATE NORMAL (NORMAL)
[2021-12-08] MEDS: SOLIFENACIN 5 MG TAB PO SCH (10:30)
[2021-12-08] MEDS: FINASTERIDE 5MG TAB PO SCH (10:30)
[2021-12-08] MEDS ORDERED: VANCOMYCIN HCL 1,000 MG, VIAL MATE ADAPTER 1 EACH in NS 250 ML IV SCH (11:15)
[2021-12-08] MEDS ORDERED: PIPERACILLIN/TAZOBACTAM SOD 3.375 GM in D5W MINI-BAG PLUS 50 ML IV SCH (12:00)
[2021-12-08] MEDS ORDERED: CIPROFLOXACIN 400 MG in IV 1 EA IV SCH (12:00)
[2021-12-08] MEDS ORDERED: metroNIDAZOLE 500 MG in IV 1 EA IV SCH (13:00)
[2021-12-08] MEDS: AMPICILLIN SOD 2 GM in D5W MINI-BAG PLUS 100 ML IV SCH ×3 (13:07→22:06)
[2021-12-08 14:00] VITALS: BP 107/57
[2021-12-08 21:28] VITALS: BP 107/56
[2021-12-08] MEDS: D5W/0.45% SODIUM CHLORIDE 1,000 ML IV SCH (21:38)
[2021-12-09] MEDS: HumaLOG INSULIN (NovoLOG) PER UNIT SC SCH ×4 (00:57→18:39)
[2021-12-09] MEDS: AMPICILLIN SOD 2 GM in D5W MINI-BAG PLUS 100 ML IV SCH ×6 (02:03→20:59)
[2021-12-09 03:43] VITALS: BP 103/59
[2021-12-09] MEDS: ACYCLOVIR 200 MG CAPSULE PO SCH ×3 (05:39→20:55)
[2021-12-09] MEDS: HEPARIN SOD (PORCINE) 5000UNITS/ML 1ML VIAL/SYRINGE SC SCH ×3 (05:39→21:43)
[2021-12-09] MEDS: D5W/0.45% SODIUM CHLORIDE 1,000 ML IV SCH ×2 (05:46→12:28)
[2021-12-09] MEDS: oxyCODONE 5MG TAB PO PRN (05:48)
[2021-12-09 07:41] LABS: HEMATOCRIT 35.1 % (42.0-52.0); HEMOGLOBIN 11.8 g/dl (13.5-17.5); MEAN CORPUSCULAR HEMOGLOBIN 33.5 pg (27.0-33.0); MEAN CORPUSCULAR HGB CONC 33.6 g/dl (32.0-36.5); MEAN CORPUSCULAR VOLUME 99.7 fl (80.0-96.0); PLATELET COUNT, AUTOMATED 333 10^3/uL (150-450); RED BLOOD COUNT 3.52 10^6/uL (4.30-6.10); WHITE BLOOD COUNT 7.8 10^3/uL (4.0-10.0)
[2021-12-09 08:06] LABS: ALT/SGPT 16 U/L (12-78); BILIRUBIN,TOTAL 0.7 MG/DL (0.2-1.0); BLOOD UREA NITROGEN 13 MG/DL (7-18); CALCIUM LEVEL 7.8 MG/DL (8.8-10.2); CARBON DIOXIDE LEVEL 33 MEQ/L (21-32); CHLORIDE LEVEL 104 MEQ/L (98-107); CREATININE FOR GFR 0.82 MG/DL (0.70-1.30); GLOMERULAR FILTRATION RATE > 60.0 (>42); GLUCOSE, FASTING 142 MG/DL (70-100); MAGNESIUM LEVEL 1.9 MG/DL (1.8-2.4); POTASSIUM SERUM 3.3 MEQ/L (3.5-5.1); SODIUM LEVEL 141 MEQ/L (136-145); TOTAL PROTEIN 5.4 GM/DL (6.4-8.2)
[2021-12-09 08:10] LABS: ATYPICAL LYMPH 3 % (0-5); DOHLE BODIES 2+; LYMPHOCYTES 16 % (16-44); METAMYELOCYTES 2 % (0-0); MONOCYTES 17 % (0-5); NEUTROPHILS 32 % (28-66)
[2021-12-09 08:11] LABS: OVALOCYTES 4+; PLATELET ESTIMATE NORMAL (NORMAL)
[2021-12-09 08:13] LABS: MICROCYTOSIS 1+
[2021-12-09] MEDS: MECLIZINE 25 MG TABLET PO SCH ×2 (08:47→20:55)
[2021-12-09] MEDS: ROSUVASTATIN 10 MG TAB (CRESTOR) PO SCH (08:50)
[2021-12-09] MEDS: TAMSULOSIN 0.4 MG CAP PO SCH (08:50)
[2021-12-09] MEDS: OMEPRAZOLE 20MG CAP PO SCH (08:52)
[2021-12-09] MEDS: GABAPENTIN 400MG CAP PO SCH ×3 (08:52→20:55)
[2021-12-09] MEDS: FINASTERIDE 5MG TAB PO SCH (08:52)
[2021-12-09] MEDS: FLUoxetine 20MG CAP PO SCH (08:53)
[2021-12-09] MEDS: SOLIFENACIN 5 MG TAB PO SCH (08:54)
[2021-12-09] MEDS: ACETAMINOPHEN 500 MG TAB PO SCH ×3 (08:54→20:55)
[2021-12-09 14:00] VITALS: BP 109/57
[2021-12-09 22:00] VITALS: BP 115/61
[2021-12-10] MEDS: D5W/0.45% SODIUM CHLORIDE 1,000 ML IV SCH ×4 (00:02→22:53)
[2021-12-10] MEDS: HumaLOG INSULIN (NovoLOG) PER UNIT SC SCH ×5 (00:02→23:37)
[2021-12-10] MEDS: AMPICILLIN SOD 2 GM in D5W MINI-BAG PLUS 100 ML IV SCH ×6 (01:46→21:51)
[2021-12-10] MEDS: ACYCLOVIR 200 MG CAPSULE PO SCH ×3 (05:27→21:51)
[2021-12-10] MEDS: HEPARIN SOD (PORCINE) 5000UNITS/ML 1ML VIAL/SYRINGE SC SCH ×3 (05:27→21:51)
[2021-12-10] MEDS: oxyCODONE 5MG TAB PO PRN (05:28)
[2021-12-10 06:00] VITALS: BP 115/60
[2021-12-10 07:35] LABS: HEMATOCRIT 32.6 % (42.0-52.0); HEMOGLOBIN 11.3 g/dl (13.5-17.5); MEAN CORPUSCULAR HEMOGLOBIN 33.5 pg (27.0-33.0); MEAN CORPUSCULAR HGB CONC 34.7 g/dl (32.0-36.5); MEAN CORPUSCULAR VOLUME 96.7 fl (80.0-96.0); PLATELET COUNT, AUTOMATED 361 10^3/uL (150-450); RED BLOOD COUNT 3.37 10^6/uL (4.30-6.10); WHITE BLOOD COUNT 7.5 10^3/uL (4.0-10.0)
[2021-12-10 08:13] LABS: ALT/SGPT 14 U/L (12-78); BILIRUBIN,TOTAL 0.7 MG/DL (0.2-1.0); BLOOD UREA NITROGEN 14 MG/DL (7-18); CALCIUM LEVEL 7.4 MG/DL (8.8-10.2); CARBON DIOXIDE LEVEL 32 MEQ/L (21-32); CHLORIDE LEVEL 100 MEQ/L (98-107); CREATININE FOR GFR 0.74 MG/DL (0.70-1.30); GLOMERULAR FILTRATION RATE > 60.0 (>42); GLUCOSE, FASTING 121 MG/DL (70-100); MAGNESIUM LEVEL 1.8 MG/DL (1.8-2.4); POTASSIUM SERUM 3.2 MEQ/L (3.5-5.1); SODIUM LEVEL 138 MEQ/L (136-145); TOTAL PROTEIN 4.6 GM/DL (6.4-8.2)
[2021-12-10] MEDS: ACETAMINOPHEN 500 MG TAB PO SCH ×3 (08:32→21:51)
[2021-12-10] MEDS: SOLIFENACIN 5 MG TAB PO SCH (08:32)
[2021-12-10] MEDS: GABAPENTIN 400MG CAP PO SCH ×3 (08:32→21:51)
[2021-12-10] MEDS: OMEPRAZOLE 20MG CAP PO SCH (08:32)
[2021-12-10] MEDS: MECLIZINE 25 MG TABLET PO SCH ×2 (08:32→21:51)
[2021-12-10] MEDS: ROSUVASTATIN 10 MG TAB (CRESTOR) PO SCH (08:33)
[2021-12-10] MEDS: TAMSULOSIN 0.4 MG CAP PO SCH (08:33)
[2021-12-10] MEDS: FINASTERIDE 5MG TAB PO SCH (08:33)
[2021-12-10] MEDS: FLUoxetine 20MG CAP PO SCH (08:33)
[2021-12-10 08:41] LABS: EOSINOPHILS 2 % (0-3); LYMPHOCYTES 25 % (16-44); MONOCYTES 6 % (0-5); NEUTROPHILS 63 % (28-66); PLATELET ESTIMATE NORMAL (NORMAL)
[2021-12-10 08:42] LABS: ANISOCYTOSIS 1+; POIKILOCYTOSIS 1+
[2021-12-10 08:43] LABS: OVALOCYTES 1+
[2021-12-10 14:00] VITALS: BP 107/60
[2021-12-10] MEDS: POTASSIUM CHLORIDE 10MEQ SR TABLET PO SCH ×2 (15:07→18:36)
[2021-12-10 20:00] VITALS: BP 115/64
[2021-12-10 22:00] VITALS: BP 115/64
[2021-12-11] MEDS: AMPICILLIN SOD 2 GM in D5W MINI-BAG PLUS 100 ML IV SCH ×6 (02:19→21:41)
[2021-12-11 04:00] VITALS: BP 100/55
[2021-12-11] MEDS: HumaLOG INSULIN (NovoLOG) PER UNIT SC SCH ×3 (06:00→17:59)
[2021-12-11] MEDS: ACYCLOVIR 200 MG CAPSULE PO SCH ×3 (06:24→21:40)
[2021-12-11] MEDS: HEPARIN SOD (PORCINE) 5000UNITS/ML 1ML VIAL/SYRINGE SC SCH ×3 (06:24→21:40)
[2021-12-11 07:39] LABS: HEMATOCRIT 33.2 % (42.0-52.0); HEMOGLOBIN 11.4 g/dl (13.5-17.5); MEAN CORPUSCULAR HGB CONC 34.3 g/dl (32.0-36.5); MEAN CORPUSCULAR VOLUME 99.1 fl (80.0-96.0); PLATELET COUNT, AUTOMATED 360 10^3/uL (150-450); RED BLOOD COUNT 3.35 10^6/uL (4.30-6.10); WHITE BLOOD COUNT 7.7 10^3/uL (4.0-10.0)
[2021-12-11 08:02] LABS: ALBUMIN 1.8 GM/DL (3.2-5.2); ALT/SGPT 16 U/L (12-78); BILIRUBIN,TOTAL 0.6 MG/DL (0.2-1.0); BLOOD UREA NITROGEN 10 MG/DL (7-18); CALCIUM LEVEL 7.4 MG/DL (8.8-10.2); CARBON DIOXIDE LEVEL 31 MEQ/L (21-32); CHLORIDE LEVEL 103 MEQ/L (98-107); CREATININE FOR GFR 0.61 MG/DL (0.70-1.30); GLOMERULAR FILTRATION RATE > 60.0 (>42); GLUCOSE, FASTING 110 MG/DL (70-100); MAGNESIUM LEVEL 1.8 MG/DL (1.8-2.4); POTASSIUM SERUM 3.5 MEQ/L (3.5-5.1); SODIUM LEVEL 140 MEQ/L (136-145); TOTAL PROTEIN 4.5 GM/DL (6.4-8.2)
[2021-12-11 08:19] LABS: ANISOCYTOSIS 1+; ATYPICAL LYMPH 1 % (0-5); EOSINOPHILS 2 % (0-3); LYMPHOCYTES 22 % (16-44); METAMYELOCYTES 3 % (0-0); MONOCYTES 7 % (0-5); NEUTROPHILS 59 % (28-66); OVALOCYTES 1+; PLATELET ESTIMATE NORMAL (NORMAL); POIKILOCYTOSIS 1+
[2021-12-11] MEDS: ROSUVASTATIN 10 MG TAB (CRESTOR) PO SCH (08:50)
[2021-12-11] MEDS: GABAPENTIN 400MG CAP PO SCH ×3 (08:50→21:43)
[2021-12-11] MEDS: OMEPRAZOLE 20MG CAP PO SCH (08:50)
[2021-12-11] MEDS: MECLIZINE 25 MG TABLET PO SCH ×2 (08:51→21:41)
[2021-12-11] MEDS: TAMSULOSIN 0.4 MG CAP PO SCH (08:51)
[2021-12-11] MEDS: FLUoxetine 20MG CAP PO SCH (08:51)
[2021-12-11] MEDS: FINASTERIDE 5MG TAB PO SCH (08:51)
[2021-12-11] MEDS: SOLIFENACIN 5 MG TAB PO SCH (08:51)
[2021-12-11] MEDS: ACETAMINOPHEN 500 MG TAB PO SCH ×3 (08:51→21:41)
[2021-12-11] MEDS: D5W/0.45% SODIUM CHLORIDE 1,000 ML IV SCH (13:11)
[2021-12-11 14:00] VITALS: BP 108/57
[2021-12-11 20:00] VITALS: BP 108/67
[2021-12-11] MEDS: oxyCODONE 5MG TAB PO PRN (21:43)
[2021-12-12] MEDS: D5W/0.45% SODIUM CHLORIDE 1,000 ML IV SCH ×2 (01:55→16:03)
[2021-12-12] MEDS: AMPICILLIN SOD 2 GM in D5W MINI-BAG PLUS 100 ML IV SCH ×6 (01:56→21:18)
[2021-12-12 04:00] VITALS: BP 103/58
[2021-12-12] MEDS: ACYCLOVIR 200 MG CAPSULE PO SCH ×3 (06:30→21:16)
[2021-12-12] MEDS: HEPARIN SOD (PORCINE) 5000UNITS/ML 1ML VIAL/SYRINGE SC SCH ×3 (06:30→21:15)
[2021-12-12 07:12] LABS: BASO # 0.1 10^3/uL (0.0-0.2); BASO % 0.7 % (0.0-1.0); EOS # 0.5 10^3/uL (0.0-0.5); EOS % 5.6 % (0.0-3.0); HEMATOCRIT 32.1 % (42.0-52.0); LYMPH # 1.4 10^3/uL (1.5-5.0); LYMPH % 15.5 % (24.0-44.0); MEAN CORPUSCULAR HEMOGLOBIN 33.6 pg (27.0-33.0); MEAN CORPUSCULAR HGB CONC 34.3 g/dl (32.0-36.5); MEAN CORPUSCULAR VOLUME 98.2 fl (80.0-96.0); MONO # 1.4 10^3/uL (0.0-0.8); MONO % 15.6 % (2.0-8.0); NEUTROPHILS # 5.2 10^3/uL (1.5-8.5); NEUTROPHILS % 57.8 % (36.0-66.0); PLATELET COUNT, AUTOMATED 397 10^3/uL (150-450); RED BLOOD COUNT 3.27 10^6/uL (4.30-6.10)
[2021-12-12 07:35] LABS: ALBUMIN 1.7 GM/DL (3.2-5.2); ALT/SGPT 17 U/L (12-78); BILIRUBIN,TOTAL 0.5 MG/DL (0.2-1.0); BLOOD UREA NITROGEN 7 MG/DL (7-18); CALCIUM LEVEL 7.2 MG/DL (8.8-10.2); CARBON DIOXIDE LEVEL 29 MEQ/L (21-32); CHLORIDE LEVEL 106 MEQ/L (98-107); CREATININE FOR GFR 0.61 MG/DL (0.70-1.30); GLOMERULAR FILTRATION RATE > 60.0 (>42); GLUCOSE, FASTING 123 MG/DL (70-100); MAGNESIUM LEVEL 1.8 MG/DL (1.8-2.4); SODIUM LEVEL 140 MEQ/L (136-145); TOTAL PROTEIN 4.3 GM/DL (6.4-8.2)
[2021-12-12] MEDS: HumaLOG INSULIN (NovoLOG) PER UNIT SC SCH ×4 (09:04→21:00)
[2021-12-12] MEDS: GABAPENTIN 400MG CAP PO SCH ×3 (09:05→21:16)
[2021-12-12] MEDS: SOLIFENACIN 5 MG TAB PO SCH (09:06)
[2021-12-12] MEDS: MECLIZINE 25 MG TABLET PO SCH ×2 (09:06→21:18)
[2021-12-12] MEDS: OMEPRAZOLE 20MG CAP PO SCH (09:06)
[2021-12-12] MEDS: ACETAMINOPHEN 500 MG TAB PO SCH ×3 (09:06→21:16)
[2021-12-12] MEDS: ROSUVASTATIN 10 MG TAB (CRESTOR) PO SCH (09:06)
[2021-12-12] MEDS: FINASTERIDE 5MG TAB PO SCH (09:07)
[2021-12-12] MEDS: TAMSULOSIN 0.4 MG CAP PO SCH (09:07)
[2021-12-12] MEDS: FLUoxetine 20MG CAP PO SCH (09:07)
[2021-12-12] MEDS: oxyCODONE 5MG TAB PO PRN ×2 (09:07→21:17)
[2021-12-12 11:38] LABS: CLOSTRIDIUM DIFFICILE PCR NEGATIVE (NEGATIVE)
[2021-12-12 14:00] VITALS: BP 116/57
[2021-12-12 20:00] VITALS: BP 120/65
[2021-12-13] MEDS: AMPICILLIN SOD 2 GM in D5W MINI-BAG PLUS 100 ML IV SCH ×6 (01:05→21:23)
[2021-12-13 04:00] VITALS: BP 117/59
[2021-12-13] MEDS: D5W/0.45% SODIUM CHLORIDE 1,000 ML IV SCH (04:53)
[2021-12-13] MEDS: HEPARIN SOD (PORCINE) 5000UNITS/ML 1ML VIAL/SYRINGE SC SCH ×3 (06:14→21:23)
[2021-12-13] MEDS: ACYCLOVIR 200 MG CAPSULE PO SCH ×3 (06:14→21:23)
[2021-12-13 07:19] LABS: BASO % 0.4 % (0.0-1.0); EOS # 0.5 10^3/uL (0.0-0.5); EOS % 5.1 % (0.0-3.0); HEMATOCRIT 32.5 % (42.0-52.0); HEMOGLOBIN 11.1 g/dl (13.5-17.5); LYMPH # 1.4 10^3/uL (1.5-5.0); LYMPH % 14.3 % (24.0-44.0); MEAN CORPUSCULAR HGB CONC 34.2 g/dl (32.0-36.5); MEAN CORPUSCULAR VOLUME 96.7 fl (80.0-96.0); MONO # 1.3 10^3/uL (0.0-0.8); MONO % 13.3 % (2.0-8.0); NEUTROPHILS # 6.2 10^3/uL (1.5-8.5); NEUTROPHILS % 62.7 % (36.0-66.0); PLATELET COUNT, AUTOMATED 401 10^3/uL (150-450); RED BLOOD COUNT 3.36 10^6/uL (4.30-6.10); WHITE BLOOD COUNT 9.8 10^3/uL (4.0-10.0)
[2021-12-13 08:12] LABS: ALBUMIN 1.7 GM/DL (3.2-5.2); ALT/SGPT 17 U/L (12-78); BILIRUBIN,TOTAL 0.5 MG/DL (0.2-1.0); BLOOD UREA NITROGEN 7 MG/DL (7-18); CARBON DIOXIDE LEVEL 29 MEQ/L (21-32); CHLORIDE LEVEL 103 MEQ/L (98-107); CREATININE FOR GFR 0.68 MG/DL (0.70-1.30); GLOMERULAR FILTRATION RATE > 60.0 (>42); GLUCOSE, FASTING 125 MG/DL (70-100); MAGNESIUM LEVEL 1.7 MG/DL (1.8-2.4); POTASSIUM SERUM 2.7 MEQ/L (3.5-5.1); SODIUM LEVEL 137 MEQ/L (136-145); TOTAL PROTEIN 4.6 GM/DL (6.4-8.2)
[2021-12-13 08:13] LABS: ERYTHROCYTE SEDIMENTATION RATE 26 mm/hr (0-20)
[2021-12-13] MEDS: ROSUVASTATIN 10 MG TAB (CRESTOR) PO SCH (08:23)
[2021-12-13] MEDS: FINASTERIDE 5MG TAB PO SCH (08:23)
[2021-12-13] MEDS: GABAPENTIN 400MG CAP PO SCH ×3 (08:23→21:22)
[2021-12-13] MEDS: MECLIZINE 25 MG TABLET PO SCH ×2 (08:24→21:22)
[2021-12-13] MEDS: OMEPRAZOLE 20MG CAP PO SCH (08:24)
[2021-12-13] MEDS: TAMSULOSIN 0.4 MG CAP PO SCH (08:24)
[2021-12-13] MEDS: FLUoxetine 20MG CAP PO SCH (08:24)
[2021-12-13] MEDS: ACETAMINOPHEN 500 MG TAB PO SCH ×3 (08:24→21:23)
[2021-12-13] MEDS: HumaLOG INSULIN (NovoLOG) PER UNIT SC SCH ×4 (08:25→21:00)
[2021-12-13] MEDS: SOLIFENACIN 5 MG TAB PO SCH (08:25)
[2021-12-13] MEDS ORDERED: POTASSIUM CHLORIDE 10MEQ SR TABLET PO ONE ×3 (08:25→17:25)
[2021-12-13] MEDS ORDERED: MAG SULF 1GM/100ML (MAG RUN) 1 GM in IV 1 EA IV ONE (09:00)
[2021-12-13 14:00] VITALS: BP 105/56
[2021-12-13 17:19] LABS: BLOOD UREA NITROGEN 8 MG/DL (7-18); CALCIUM LEVEL 7.4 MG/DL (8.8-10.2); CARBON DIOXIDE LEVEL 31 MEQ/L (21-32); CHLORIDE LEVEL 105 MEQ/L (98-107); CREATININE FOR GFR 0.62 MG/DL (0.70-1.30); GLOMERULAR FILTRATION RATE > 60.0 (>42); GLUCOSE, FASTING 114 MG/DL (70-100); POTASSIUM SERUM 3.3 MEQ/L (3.5-5.1); SODIUM LEVEL 140 MEQ/L (136-145)
[2021-12-13] MEDS: oxyCODONE 5MG TAB PO PRN (18:04)
[2021-12-13 20:00] VITALS: BP 115/61
[2021-12-13] MEDS ORDERED: LOMOTIL 2.5MG/0.025MG TABLET PO SCH (21:00)
[2021-12-14] MEDS: oxyCODONE 5MG TAB PO PRN ×3 (00:23→21:19)
[2021-12-14] MEDS: AMPICILLIN SOD 2 GM in D5W MINI-BAG PLUS 100 ML IV SCH ×3 (02:17→09:58)
[2021-12-14 04:00] VITALS: BP 107/60
[2021-12-14] MEDS: HEPARIN SOD (PORCINE) 5000UNITS/ML 1ML VIAL/SYRINGE SC SCH ×3 (05:24→21:19)
[2021-12-14] MEDS: ACYCLOVIR 200 MG CAPSULE PO SCH ×2 (05:25→13:32)
[2021-12-14 07:41] LABS: BASO # 0.1 10^3/uL (0.0-0.2); BASO % 0.9 % (0.0-1.0); EOS # 0.5 10^3/uL (0.0-0.5); EOS % 4.6 % (0.0-3.0); HEMATOCRIT 33.7 % (42.0-52.0); HEMOGLOBIN 11.2 g/dl (13.5-17.5); LYMPH # 1.7 10^3/uL (1.5-5.0); LYMPH % 16.7 % (24.0-44.0); MEAN CORPUSCULAR HGB CONC 33.2 g/dl (32.0-36.5); MEAN CORPUSCULAR VOLUME 99.4 fl (80.0-96.0); MONO # 1.2 10^3/uL (0.0-0.8); MONO % 12.3 % (2.0-8.0); NEUTROPHILS # 6.1 10^3/uL (1.5-8.5); NEUTROPHILS % 60.8 % (36.0-66.0); PLATELET COUNT, AUTOMATED 428 10^3/uL (150-450); RED BLOOD COUNT 3.39 10^6/uL (4.30-6.10); WHITE BLOOD COUNT 10.1 10^3/uL (4.0-10.0)
[2021-12-14] MEDS: LOMOTIL 2.5MG/0.025MG TABLET PO SCH ×4 (07:50→23:59)
[2021-12-14] MEDS: HumaLOG INSULIN (NovoLOG) PER UNIT SC SCH ×4 (07:51→21:00)
[2021-12-14 08:00] LABS: BLOOD UREA NITROGEN 9 MG/DL (7-18); CALCIUM LEVEL 7.3 MG/DL (8.8-10.2); CARBON DIOXIDE LEVEL 32 MEQ/L (21-32); CHLORIDE LEVEL 105 MEQ/L (98-107); CREATININE FOR GFR 0.66 MG/DL (0.70-1.30); GLOMERULAR FILTRATION RATE > 60.0 (>42); GLUCOSE, FASTING 108 MG/DL (70-100); MAGNESIUM LEVEL 1.8 MG/DL (1.8-2.4); POTASSIUM SERUM 3.4 MEQ/L (3.5-5.1); SODIUM LEVEL 139 MEQ/L (136-145)
[2021-12-14] MEDS: MECLIZINE 25 MG TABLET PO SCH ×2 (08:30→21:19)
[2021-12-14] MEDS: SOLIFENACIN 5 MG TAB PO SCH (08:30)
[2021-12-14] MEDS: GABAPENTIN 400MG CAP PO SCH ×3 (08:30→21:20)
[2021-12-14] MEDS: OMEPRAZOLE 20MG CAP PO SCH (08:30)
[2021-12-14] MEDS: TAMSULOSIN 0.4 MG CAP PO SCH (08:30)
[2021-12-14] MEDS: FLUoxetine 20MG CAP PO SCH (08:31)
[2021-12-14] MEDS: ROSUVASTATIN 10 MG TAB (CRESTOR) PO SCH (08:31)
[2021-12-14] MEDS: ACETAMINOPHEN 500 MG TAB PO SCH ×3 (08:31→21:18)
[2021-12-14] MEDS: FINASTERIDE 5MG TAB PO SCH (08:31)
[2021-12-14] MEDS ORDERED: POTASSIUM CHLORIDE 10MEQ SR TABLET PO ONE (08:45)
[2021-12-14 12:00] VITALS: BP 91/55
[2021-12-14] MEDS ORDERED: MAG SULF 1GM/100ML (MAG RUN) 1 GM in IV 1 EA IV ONE (15:05)
[2021-12-14 15:24] VITALS: BP 106/72
[2021-12-14] MEDS: CHOLESTYRAMINE 4 GM PWD PKT PO SCH ×2 (17:30→21:23)
[2021-12-14] MEDS: FIBER-CON 625 MG TAB PO SCH (21:18)
[2021-12-14 22:00] VITALS: BP 104/57
[2021-12-15] MEDS: HEPARIN SOD (PORCINE) 5000UNITS/ML 1ML VIAL/SYRINGE SC SCH ×3 (05:13→21:01)
[2021-12-15] MEDS: LOMOTIL 2.5MG/0.025MG TABLET PO SCH ×3 (05:13→18:17)
[2021-12-15] MEDS: oxyCODONE 5MG TAB PO PRN (05:14)
[2021-12-15 05:24] VITALS: BP 108/58
[2021-12-15 07:10] LABS: BASO # 0.1 10^3/uL (0.0-0.2); BASO % 0.6 % (0.0-1.0); EOS # 0.4 10^3/uL (0.0-0.5); EOS % 3.1 % (0.0-3.0); HEMATOCRIT 34.2 % (42.0-52.0); HEMOGLOBIN 11.5 g/dl (13.5-17.5); LYMPH # 1.8 10^3/uL (1.5-5.0); LYMPH % 14.4 % (24.0-44.0); MEAN CORPUSCULAR HEMOGLOBIN 33.7 pg (27.0-33.0); MEAN CORPUSCULAR HGB CONC 33.6 g/dl (32.0-36.5); MEAN CORPUSCULAR VOLUME 100.3 fl (80.0-96.0); MONO # 1.2 10^3/uL (0.0-0.8); MONO % 9.1 % (2.0-8.0); NEUTROPHILS # 8.8 10^3/uL (1.5-8.5); NEUTROPHILS % 69.6 % (36.0-66.0); PLATELET COUNT, AUTOMATED 481 10^3/uL (150-450); RED BLOOD COUNT 3.41 10^6/uL (4.30-6.10); WHITE BLOOD COUNT 12.7 10^3/uL (4.0-10.0)
[2021-12-15 07:28] LABS: BLOOD UREA NITROGEN 9 MG/DL (7-18); CALCIUM LEVEL 7.5 MG/DL (8.8-10.2); CARBON DIOXIDE LEVEL 26 MEQ/L (21-32); CHLORIDE LEVEL 106 MEQ/L (98-107); CREATININE FOR GFR 0.61 MG/DL (0.70-1.30); GLOMERULAR FILTRATION RATE > 60.0 (>42); GLUCOSE, FASTING 86 MG/DL (70-100); MAGNESIUM LEVEL 1.9 MG/DL (1.8-2.4); POTASSIUM SERUM 3.8 MEQ/L (3.5-5.1); SODIUM LEVEL 140 MEQ/L (136-145)
[2021-12-15] MEDS: HumaLOG INSULIN (NovoLOG) PER UNIT SC SCH ×4 (07:30→20:12)
[2021-12-15] MEDS ORDERED: E-Z-PAQUE 96% w/w SUSP 176GM BTL As Ordered ONE (08:26)
[2021-12-15] MEDS: CHOLESTYRAMINE 4 GM PWD PKT PO SCH ×4 (09:00→20:49)
[2021-12-15] MEDS ORDERED: FUROSEMIDE 20 MG TAB PO ONE (10:40)
[2021-12-15] MEDS: SOLIFENACIN 5 MG TAB PO SCH (12:21)
[2021-12-15] MEDS: FLUoxetine 20MG CAP PO SCH (12:21)
[2021-12-15] MEDS: ROSUVASTATIN 10 MG TAB (CRESTOR) PO SCH (12:21)
[2021-12-15] MEDS: MECLIZINE 25 MG TABLET PO SCH ×2 (12:21→20:48)
[2021-12-15] MEDS: FIBER-CON 625 MG TAB PO SCH ×2 (12:21→20:48)
[2021-12-15] MEDS: OMEPRAZOLE 20MG CAP PO SCH (12:22)
[2021-12-15] MEDS: TAMSULOSIN 0.4 MG CAP PO SCH (12:22)
[2021-12-15] MEDS: FINASTERIDE 5MG TAB PO SCH (12:22)
[2021-12-15] MEDS: GABAPENTIN 400MG CAP PO SCH ×3 (12:22→20:48)
[2021-12-15] MEDS: ACETAMINOPHEN 500 MG TAB PO SCH ×3 (12:23→20:49)
[2021-12-15 13:30] VITALS: BP 142/89
[2021-12-15 18:00] VITALS: BP 112/58
[2021-12-16] MEDS: LOMOTIL 2.5MG/0.025MG TABLET PO SCH ×5 (00:27→22:23)
[2021-12-16] MEDS: HEPARIN SOD (PORCINE) 5000UNITS/ML 1ML VIAL/SYRINGE SC SCH ×3 (06:03→22:23)
[2021-12-16 06:37] VITALS: BP 127/77
[2021-12-16 06:44] LABS: BASO # 0.1 10^3/uL (0.0-0.2); BASO % 0.7 % (0.0-1.0); EOS # 0.2 10^3/uL (0.0-0.5); EOS % 1.4 % (0.0-3.0); HEMATOCRIT 36.7 % (42.0-52.0); HEMOGLOBIN 12.4 g/dl (13.5-17.5); LYMPH # 1.9 10^3/uL (1.5-5.0); LYMPH % 12.8 % (24.0-44.0); MEAN CORPUSCULAR HEMOGLOBIN 33.8 pg (27.0-33.0); MEAN CORPUSCULAR HGB CONC 33.8 g/dl (32.0-36.5); MONO # 1.3 10^3/uL (0.0-0.8); MONO % 8.9 % (2.0-8.0); NEUTROPHILS # 10.9 10^3/uL (1.5-8.5); NEUTROPHILS % 73.5 % (36.0-66.0); PLATELET COUNT, AUTOMATED 505 10^3/uL (150-450); RED BLOOD COUNT 3.67 10^6/uL (4.30-6.10); WHITE BLOOD COUNT 14.8 10^3/uL (4.0-10.0)
[2021-12-16 07:17] LABS: BLOOD UREA NITROGEN 13 MG/DL (7-18); C REACTIVE PROTEIN QUANTITATIV 2.25 MG/DL (0.00-0.30); CALCIUM LEVEL 7.9 MG/DL (8.8-10.2); CARBON DIOXIDE LEVEL 29 MEQ/L (21-32); CHLORIDE LEVEL 106 MEQ/L (98-107); CREATININE FOR GFR 0.72 MG/DL (0.70-1.30); GLOMERULAR FILTRATION RATE > 60.0 (>42); GLUCOSE, FASTING 93 MG/DL (70-100); POTASSIUM SERUM 3.9 MEQ/L (3.5-5.1); SODIUM LEVEL 140 MEQ/L (136-145)
[2021-12-16] MEDS: HumaLOG INSULIN (NovoLOG) PER UNIT SC SCH ×4 (07:30→22:00)
[2021-12-16] MEDS: ROSUVASTATIN 10 MG TAB (CRESTOR) PO SCH (08:32)
[2021-12-16] MEDS: MECLIZINE 25 MG TABLET PO SCH ×2 (08:32→22:21)
[2021-12-16] MEDS: CHOLESTYRAMINE 4 GM PWD PKT PO SCH ×3 (08:32→16:15)
[2021-12-16] MEDS: GABAPENTIN 400MG CAP PO SCH ×3 (08:33→22:22)
[2021-12-16] MEDS: TAMSULOSIN 0.4 MG CAP PO SCH (08:33)
[2021-12-16] MEDS: FIBER-CON 625 MG TAB PO SCH ×2 (08:33→22:13)
[2021-12-16] MEDS: OMEPRAZOLE 20MG CAP PO SCH (08:34)
[2021-12-16] MEDS: FINASTERIDE 5MG TAB PO SCH (08:34)
[2021-12-16] MEDS: FLUoxetine 20MG CAP PO SCH (08:35)
[2021-12-16] MEDS: ACETAMINOPHEN 500 MG TAB PO SCH ×3 (08:37→22:22)
[2021-12-16] MEDS: SOLIFENACIN 5 MG TAB PO SCH (08:37)
[2021-12-16] MEDS: oxyCODONE 5MG TAB PO PRN ×2 (08:42→22:25)
[2021-12-16] MEDS ORDERED: ISOVUE-370 76% 100ML VIAL As Ordered ONE (09:55)
[2021-12-16 14:00] VITALS: BP_SYST 124; BP_SYST 147; BP_DIAS 69; BP_DIAS 90
[2021-12-16 22:00] VITALS: BP 120/70
[2021-12-17 01:00] VITALS: O2SAT 94
[2021-12-17] MEDS: CHOLESTYRAMINE 4 GM PWD PKT PO SCH ×4 (01:00→17:57)
[2021-12-17 05:31] VITALS: BP 119/85
[2021-12-17 06:17] LABS: BASO # 0.1 10^3/uL (0.0-0.2); BASO % 0.9 % (0.0-1.0); EOS # 0.3 10^3/uL (0.0-0.5); EOS % 2.5 % (0.0-3.0); HEMATOCRIT 34.1 % (42.0-52.0); HEMOGLOBIN 11.7 g/dl (13.5-17.5); LYMPH # 1.9 10^3/uL (1.5-5.0); LYMPH % 17.3 % (24.0-44.0); MEAN CORPUSCULAR HEMOGLOBIN 34.5 pg (27.0-33.0); MEAN CORPUSCULAR HGB CONC 34.3 g/dl (32.0-36.5); MEAN CORPUSCULAR VOLUME 100.6 fl (80.0-96.0); MONO # 1.1 10^3/uL (0.0-0.8); MONO % 10.1 % (2.0-8.0); NEUTROPHILS # 7.1 10^3/uL (1.5-8.5); NEUTROPHILS % 66.5 % (36.0-66.0); PLATELET COUNT, AUTOMATED 461 10^3/uL (150-450); RED BLOOD COUNT 3.39 10^6/uL (4.30-6.10); WHITE BLOOD COUNT 10.7 10^3/uL (4.0-10.0)
[2021-12-17] MEDS: LOMOTIL 2.5MG/0.025MG TABLET PO SCH ×4 (06:17→22:42)
[2021-12-17] MEDS: HEPARIN SOD (PORCINE) 5000UNITS/ML 1ML VIAL/SYRINGE SC SCH ×3 (06:18→22:42)
[2021-12-17 06:45] LABS: BLOOD UREA NITROGEN 12 MG/DL (7-18); C REACTIVE PROTEIN QUANTITATIV 1.63 MG/DL (0.00-0.30); CALCIUM LEVEL 7.6 MG/DL (8.8-10.2); CARBON DIOXIDE LEVEL 26 MEQ/L (21-32); CHLORIDE LEVEL 108 MEQ/L (98-107); CREATININE FOR GFR 0.61 MG/DL (0.70-1.30); GLOMERULAR FILTRATION RATE > 60.0 (>42); GLUCOSE, FASTING 107 MG/DL (70-100); MAGNESIUM LEVEL 1.7 MG/DL (1.8-2.4); POTASSIUM SERUM 3.3 MEQ/L (3.5-5.1); SODIUM LEVEL 140 MEQ/L (136-145)
[2021-12-17] MEDS ORDERED: MAG SULF 1GM/100ML (MAG RUN) 1 GM in IV 1 EA IV ONE (07:10)
[2021-12-17] MEDS ORDERED: POTASSIUM CHLORIDE 10MEQ SR TABLET PO ONE (07:10)
[2021-12-17] MEDS: HumaLOG INSULIN (NovoLOG) PER UNIT SC SCH ×4 (07:30→22:42)
[2021-12-17] MEDS: GABAPENTIN 400MG CAP PO SCH ×3 (08:10→22:49)
[2021-12-17] MEDS: MECLIZINE 25 MG TABLET PO SCH ×2 (08:10→22:41)
[2021-12-17] MEDS: FIBER-CON 625 MG TAB PO SCH ×2 (08:10→22:41)
[2021-12-17] MEDS: OMEPRAZOLE 20MG CAP PO SCH (08:11)
[2021-12-17] MEDS: FINASTERIDE 5MG TAB PO SCH (08:11)
[2021-12-17] MEDS: TAMSULOSIN 0.4 MG CAP PO SCH (08:11)
[2021-12-17] MEDS: FLUoxetine 20MG CAP PO SCH (08:11)
[2021-12-17] MEDS: ROSUVASTATIN 10 MG TAB (CRESTOR) PO SCH (08:11)
[2021-12-17] MEDS: ACETAMINOPHEN 500 MG TAB PO SCH ×3 (08:13→22:43)
[2021-12-17] MEDS: SOLIFENACIN 5 MG TAB PO SCH (08:14)
[2021-12-17 14:00] VITALS: BP 106/62
[2021-12-17] MEDS: oxyCODONE 5MG TAB PO PRN (22:44)
[2021-12-18] MEDS: CHOLESTYRAMINE 4 GM PWD PKT PO SCH ×5 (01:20→22:46)
[2021-12-18] MEDS: LOMOTIL 2.5MG/0.025MG TABLET PO SCH (05:46)
[2021-12-18] MEDS: HEPARIN SOD (PORCINE) 5000UNITS/ML 1ML VIAL/SYRINGE SC SCH ×3 (05:46→20:22)
[2021-12-18] MEDS: oxyCODONE 5MG TAB PO PRN ×3 (05:47→20:26)
[2021-12-18 06:06] LABS: BASO # 0.1 10^3/uL (0.0-0.2); BASO % 0.8 % (0.0-1.0); EOS # 0.2 10^3/uL (0.0-0.5); HEMATOCRIT 34.7 % (42.0-52.0); HEMOGLOBIN 11.7 g/dl (13.5-17.5); LYMPH # 2.1 10^3/uL (1.5-5.0); LYMPH % 17.9 % (24.0-44.0); MEAN CORPUSCULAR HGB CONC 33.7 g/dl (32.0-36.5); MEAN CORPUSCULAR VOLUME 100.9 fl (80.0-96.0); MONO # 1.1 10^3/uL (0.0-0.8); MONO % 9.2 % (2.0-8.0); PLATELET COUNT, AUTOMATED 501 10^3/uL (150-450); RED BLOOD COUNT 3.44 10^6/uL (4.30-6.10); WHITE BLOOD COUNT 11.8 10^3/uL (4.0-10.0)
[2021-12-18 06:32] LABS: BLOOD UREA NITROGEN 13 MG/DL (7-18); C REACTIVE PROTEIN QUANTITATIV 1.14 MG/DL (0.00-0.30); CALCIUM LEVEL 7.5 MG/DL (8.8-10.2); CARBON DIOXIDE LEVEL 28 MEQ/L (21-32); CHLORIDE LEVEL 110 MEQ/L (98-107); CREATININE FOR GFR 0.74 MG/DL (0.70-1.30); GLOMERULAR FILTRATION RATE > 60.0 (>42); GLUCOSE, FASTING 88 MG/DL (70-100); POTASSIUM SERUM 3.5 MEQ/L (3.5-5.1); SODIUM LEVEL 141 MEQ/L (136-145)
[2021-12-18 06:36] VITALS: BP 136/84
[2021-12-18] MEDS: HumaLOG INSULIN (NovoLOG) PER UNIT SC SCH ×4 (07:30→20:11)
[2021-12-18] MEDS: SOLIFENACIN 5 MG TAB PO SCH (08:11)
[2021-12-18] MEDS: FINASTERIDE 5MG TAB PO SCH (08:11)
[2021-12-18] MEDS: OMEPRAZOLE 20MG CAP PO SCH (08:11)
[2021-12-18] MEDS: TAMSULOSIN 0.4 MG CAP PO SCH (08:11)
[2021-12-18] MEDS: GABAPENTIN 400MG CAP PO SCH ×3 (08:11→20:25)
[2021-12-18] MEDS: MECLIZINE 25 MG TABLET PO SCH ×2 (08:11→20:22)
[2021-12-18] MEDS: FIBER-CON 625 MG TAB PO SCH ×2 (08:11→20:22)
[2021-12-18] MEDS: ROSUVASTATIN 10 MG TAB (CRESTOR) PO SCH (08:11)
[2021-12-18] MEDS: FLUoxetine 20MG CAP PO SCH (08:11)
[2021-12-18] MEDS: ACETAMINOPHEN 500 MG TAB PO SCH ×3 (08:12→20:25)
[2021-12-18] MEDS ORDERED: POTASSIUM CHLORIDE 10MEQ SR TABLET PO ONE (11:50)
[2021-12-18 19:00] VITALS: BP 133/75
[2021-12-18] MEDS: LOPERAMIDE 2 MG CAPLET PO PRN ×2 (20:22→23:37)
[2021-12-18 22:00] VITALS: BP 123/72
[2021-12-19 00:06] LABS: HSV IgM TYPES 1&2 <0.91 Ratio (0.00-0.90); HSV-1 DNA Negative (Negative); HSV-2 DNA Negative (Negative)
[2021-12-19 06:00] VITALS: BP 130/74
[2021-12-19] MEDS: HEPARIN SOD (PORCINE) 5000UNITS/ML 1ML VIAL/SYRINGE SC SCH ×3 (06:00→21:53)
[2021-12-19] MEDS: oxyCODONE 5MG TAB PO PRN ×2 (06:01→22:47)
[2021-12-19] MEDS: HumaLOG INSULIN (NovoLOG) PER UNIT SC SCH ×4 (07:30→21:00)
[2021-12-19 07:51] LABS: BASO # 0.1 10^3/uL (0.0-0.2); EOS # 0.2 10^3/uL (0.0-0.5); EOS % 2.2 % (0.0-3.0); HEMATOCRIT 36.7 % (42.0-52.0); HEMOGLOBIN 12.4 g/dl (13.5-17.5); LYMPH # 1.9 10^3/uL (1.5-5.0); LYMPH % 17.5 % (24.0-44.0); MEAN CORPUSCULAR HEMOGLOBIN 34.6 pg (27.0-33.0); MEAN CORPUSCULAR HGB CONC 33.8 g/dl (32.0-36.5); MEAN CORPUSCULAR VOLUME 102.5 fl (80.0-96.0); MONO # 0.9 10^3/uL (0.0-0.8); MONO % 8.5 % (2.0-8.0); NEUTROPHILS # 7.5 10^3/uL (1.5-8.5); NEUTROPHILS % 68.3 % (36.0-66.0); PLATELET COUNT, AUTOMATED 500 10^3/uL (150-450); RED BLOOD COUNT 3.58 10^6/uL (4.30-6.10); WHITE BLOOD COUNT 10.9 10^3/uL (4.0-10.0)
[2021-12-19 08:15] LABS: BLOOD UREA NITROGEN 12 MG/DL (7-18); C REACTIVE PROTEIN QUANTITATIV 1.07 MG/DL (0.00-0.30); CARBON DIOXIDE LEVEL 28 MEQ/L (21-32); CHLORIDE LEVEL 106 MEQ/L (98-107); CREATININE FOR GFR 0.66 MG/DL (0.70-1.30); GLOMERULAR FILTRATION RATE > 60.0 (>42); GLUCOSE, FASTING 97 MG/DL (70-100); MAGNESIUM LEVEL 1.7 MG/DL (1.8-2.4); POTASSIUM SERUM 4.4 MEQ/L (3.5-5.1); SODIUM LEVEL 139 MEQ/L (136-145)
[2021-12-19] MEDS ORDERED: MAG SULF 1GM/100ML (MAG RUN) 1 GM in IV 1 EA IV ONE (08:35)
[2021-12-19] MEDS: GABAPENTIN 400MG CAP PO SCH ×3 (09:24→21:53)
[2021-12-19] MEDS: FIBER-CON 625 MG TAB PO SCH ×2 (09:24→21:54)
[2021-12-19] MEDS: CHOLESTYRAMINE 4 GM PWD PKT PO SCH ×4 (09:24→21:55)
[2021-12-19] MEDS: ROSUVASTATIN 10 MG TAB (CRESTOR) PO SCH (09:24)
[2021-12-19] MEDS: SOLIFENACIN 5 MG TAB PO SCH (09:24)
[2021-12-19] MEDS: FLUoxetine 20MG CAP PO SCH (09:24)
[2021-12-19] MEDS: MECLIZINE 25 MG TABLET PO SCH ×2 (09:24→21:54)
[2021-12-19] MEDS: OMEPRAZOLE 20MG CAP PO SCH (09:25)
[2021-12-19] MEDS: ACETAMINOPHEN 500 MG TAB PO SCH ×3 (09:25→21:55)
[2021-12-19] MEDS: FINASTERIDE 5MG TAB PO SCH (09:25)
[2021-12-19] MEDS: TAMSULOSIN 0.4 MG CAP PO SCH (09:25)
[2021-12-19 14:00] VITALS: BP 115/69
[2021-12-19] MEDS: LOPERAMIDE 2 MG CAPLET PO PRN (23:28)
[2021-12-20] MEDS: LOPERAMIDE 2 MG CAPLET PO PRN ×4 (02:54→21:41)
[2021-12-20] MEDS: HEPARIN SOD (PORCINE) 5000UNITS/ML 1ML VIAL/SYRINGE SC SCH ×3 (05:18→21:24)
[2021-12-20 05:57] VITALS: BP 105/57
[2021-12-20] MEDS: HumaLOG INSULIN (NovoLOG) PER UNIT SC SCH ×4 (07:30→19:59)
[2021-12-20 07:57] LABS: BASO # 0.1 10^3/uL (0.0-0.2); EOS # 0.2 10^3/uL (0.0-0.5); HEMATOCRIT 36.7 % (42.0-52.0); HEMOGLOBIN 12.5 g/dl (13.5-17.5); LYMPH # 1.8 10^3/uL (1.5-5.0); LYMPH % 15.9 % (24.0-44.0); MEAN CORPUSCULAR HEMOGLOBIN 34.6 pg (27.0-33.0); MEAN CORPUSCULAR HGB CONC 34.1 g/dl (32.0-36.5); MEAN CORPUSCULAR VOLUME 101.7 fl (80.0-96.0); MONO # 1.1 10^3/uL (0.0-0.8); MONO % 9.1 % (2.0-8.0); NEUTROPHILS # 8.1 10^3/uL (1.5-8.5); NEUTROPHILS % 70.2 % (36.0-66.0); PLATELET COUNT, AUTOMATED 513 10^3/uL (150-450); RED BLOOD COUNT 3.61 10^6/uL (4.30-6.10); WHITE BLOOD COUNT 11.5 10^3/uL (4.0-10.0)
[2021-12-20] MEDS: FLEET ENEMA PR SCH ×2 (08:07→09:34)
[2021-12-20 08:16] LABS: BLOOD UREA NITROGEN 15 MG/DL (7-18); C REACTIVE PROTEIN QUANTITATIV 0.77 MG/DL (0.00-0.30); CALCIUM LEVEL 8.3 MG/DL (8.8-10.2); CARBON DIOXIDE LEVEL 25 MEQ/L (21-32); CHLORIDE LEVEL 109 MEQ/L (98-107); CREATININE FOR GFR 0.58 MG/DL (0.70-1.30); GLOMERULAR FILTRATION RATE > 60.0 (>42); GLUCOSE, FASTING 124 MG/DL (70-100); MAGNESIUM LEVEL 1.9 MG/DL (1.8-2.4); POTASSIUM SERUM 4.1 MEQ/L (3.5-5.1); SODIUM LEVEL 140 MEQ/L (136-145)
[2021-12-20] MEDS: CHOLESTYRAMINE 4 GM PWD PKT PO SCH ×4 (09:00→22:15)
[2021-12-20] MEDS ORDERED: propofoL 200 MG/20 ML VIAL As Ordered ONE (09:58)
[2021-12-20] MEDS ORDERED: LIDOCAINE 2% 100MG/5ML SDV (FOR ANES.) As Ordered ONE (09:58)
[2021-12-20] MEDS ORDERED: PHENYLephrine 500MCG 5ML (100MCG/ML) SYRINGE As Ordered ONE (11:32)
[2021-12-20] MEDS ORDERED: ePHEDrine SULFATE 25 MG/5 ML(5MG/ML) SYRINGE As Ordered ONE (11:32)
[2021-12-20] MEDS: ACETAMINOPHEN 500 MG TAB PO SCH ×3 (12:34→21:26)
[2021-12-20] MEDS: FLUoxetine 20MG CAP PO SCH (12:46)
[2021-12-20] MEDS: ROSUVASTATIN 10 MG TAB (CRESTOR) PO SCH (12:46)
[2021-12-20] MEDS: MECLIZINE 25 MG TABLET PO SCH ×2 (12:46→21:26)
[2021-12-20] MEDS: FINASTERIDE 5MG TAB PO SCH (12:46)
[2021-12-20] MEDS: FIBER-CON 625 MG TAB PO SCH ×2 (12:46→21:00)
[2021-12-20] MEDS: OMEPRAZOLE 20MG CAP PO SCH (12:46)
[2021-12-20] MEDS: GABAPENTIN 400MG CAP PO SCH ×3 (12:47→21:26)
[2021-12-20] MEDS: SOLIFENACIN 5 MG TAB PO SCH (12:47)
[2021-12-20] MEDS: TAMSULOSIN 0.4 MG CAP PO SCH (12:47)
[2021-12-20 14:00] VITALS: BP 109/77
[2021-12-20 21:25] VITALS: BP 111/64
[2021-12-20] MEDS: oxyCODONE 5MG TAB PO PRN (22:18)
[2021-12-21 05:39] VITALS: BP 123/57
[2021-12-21] MEDS: HEPARIN SOD (PORCINE) 5000UNITS/ML 1ML VIAL/SYRINGE SC SCH ×3 (06:24→21:18)
[2021-12-21 06:44] LABS: BASO # 0.1 10^3/uL (0.0-0.2); BASO % 1.2 % (0.0-1.0); EOS # 0.1 10^3/uL (0.0-0.5); EOS % 1.3 % (0.0-3.0); HEMATOCRIT 35.6 % (42.0-52.0); HEMOGLOBIN 11.9 g/dl (13.5-17.5); MEAN CORPUSCULAR HEMOGLOBIN 33.7 pg (27.0-33.0); MEAN CORPUSCULAR HGB CONC 33.4 g/dl (32.0-36.5); MEAN CORPUSCULAR VOLUME 100.8 fl (80.0-96.0); MONO # 1.1 10^3/uL (0.0-0.8); MONO % 11.1 % (2.0-8.0); NEUTROPHILS # 6.1 10^3/uL (1.5-8.5); NEUTROPHILS % 63.7 % (36.0-66.0); PLATELET COUNT, AUTOMATED 473 10^3/uL (150-450); RED BLOOD COUNT 3.53 10^6/uL (4.30-6.10); WHITE BLOOD COUNT 9.6 10^3/uL (4.0-10.0)
[2021-12-21 07:01] LABS: BLOOD UREA NITROGEN 14 MG/DL (7-18); C REACTIVE PROTEIN QUANTITATIV 0.67 MG/DL (0.00-0.30); CALCIUM LEVEL 8.1 MG/DL (8.8-10.2); CARBON DIOXIDE LEVEL 26 MEQ/L (21-32); CHLORIDE LEVEL 110 MEQ/L (98-107); CREATININE FOR GFR 0.76 MG/DL (0.70-1.30); GLOMERULAR FILTRATION RATE > 60.0 (>42); GLUCOSE, FASTING 101 MG/DL (70-100); MAGNESIUM LEVEL 1.8 MG/DL (1.8-2.4); POTASSIUM SERUM 4.2 MEQ/L (3.5-5.1); SODIUM LEVEL 141 MEQ/L (136-145)
[2021-12-21] MEDS: HumaLOG INSULIN (NovoLOG) PER UNIT SC SCH ×4 (07:30→21:00)
[2021-12-21] MEDS: FINASTERIDE 5MG TAB PO SCH (09:12)
[2021-12-21] MEDS: GABAPENTIN 400MG CAP PO SCH ×3 (09:12→20:53)
[2021-12-21] MEDS: FLUoxetine 20MG CAP PO SCH (09:12)
[2021-12-21] MEDS: ROSUVASTATIN 10 MG TAB (CRESTOR) PO SCH (09:13)
[2021-12-21] MEDS: ACETAMINOPHEN 500 MG TAB PO SCH ×3 (09:13→20:54)
[2021-12-21] MEDS: OMEPRAZOLE 20MG CAP PO SCH (09:13)
[2021-12-21] MEDS: MECLIZINE 25 MG TABLET PO SCH ×2 (09:13→20:53)
[2021-12-21] MEDS: TAMSULOSIN 0.4 MG CAP PO SCH (09:13)
[2021-12-21] MEDS: FIBER-CON 625 MG TAB PO SCH ×2 (09:13→20:56)
[2021-12-21] MEDS: SOLIFENACIN 5 MG TAB PO SCH (10:45)
[2021-12-21] MEDS: CHOLESTYRAMINE 4 GM PWD PKT PO SCH ×4 (10:45→20:52)
[2021-12-21] MEDS: oxyCODONE 5MG TAB PO PRN (17:21)
[2021-12-22] MEDS: LOPERAMIDE 2 MG CAPLET PO PRN ×3 (00:22→18:06)
[2021-12-22] MEDS: oxyCODONE 5MG TAB PO PRN ×2 (00:23→09:04)
[2021-12-22] MEDS: HEPARIN SOD (PORCINE) 5000UNITS/ML 1ML VIAL/SYRINGE SC SCH ×3 (05:13→20:57)
[2021-12-22 06:00] VITALS: BP 105/68
[2021-12-22] MEDS: HumaLOG INSULIN (NovoLOG) PER UNIT SC SCH ×4 (07:30→20:58)
[2021-12-22] MEDS: TAMSULOSIN 0.4 MG CAP PO SCH (09:03)
[2021-12-22] MEDS: SOLIFENACIN 5 MG TAB PO SCH (09:03)
[2021-12-22] MEDS: ROSUVASTATIN 10 MG TAB (CRESTOR) PO SCH (09:03)
[2021-12-22] MEDS: GABAPENTIN 400MG CAP PO SCH ×3 (09:03→20:57)
[2021-12-22] MEDS: FLUoxetine 20MG CAP PO SCH (09:04)
[2021-12-22] MEDS: OMEPRAZOLE 20MG CAP PO SCH (09:04)
[2021-12-22] MEDS: MECLIZINE 25 MG TABLET PO SCH ×2 (09:04→20:58)
[2021-12-22] MEDS: FINASTERIDE 5MG TAB PO SCH (09:04)
[2021-12-22] MEDS: FIBER-CON 625 MG TAB PO SCH ×2 (09:04→20:57)
[2021-12-22] MEDS: ACETAMINOPHEN 500 MG TAB PO SCH ×3 (09:05→20:58)
[2021-12-22] MEDS: CHOLESTYRAMINE 4 GM PWD PKT PO SCH ×4 (09:05→20:57)
[2021-12-23] MEDS: oxyCODONE 5MG TAB PO PRN ×2 (04:49→18:36)
[2021-12-23] MEDS: HEPARIN SOD (PORCINE) 5000UNITS/ML 1ML VIAL/SYRINGE SC SCH ×3 (05:23→21:57)
[2021-12-23 06:00] VITALS: BP 115/66
[2021-12-23] MEDS: HumaLOG INSULIN (NovoLOG) PER UNIT SC SCH ×4 (07:30→21:00)
[2021-12-23] MEDS: MECLIZINE 25 MG TABLET PO SCH ×2 (09:08→21:55)
[2021-12-23] MEDS: ACETAMINOPHEN 500 MG TAB PO SCH ×3 (09:09→21:56)
[2021-12-23] MEDS: FIBER-CON 625 MG TAB PO SCH ×2 (09:09→21:56)
[2021-12-23] MEDS: SOLIFENACIN 5 MG TAB PO SCH (09:09)
[2021-12-23] MEDS: CHOLESTYRAMINE 4 GM PWD PKT PO SCH ×4 (09:09→21:06)
[2021-12-23] MEDS: ROSUVASTATIN 10 MG TAB (CRESTOR) PO SCH (09:10)
[2021-12-23] MEDS: FLUoxetine 20MG CAP PO SCH (09:10)
[2021-12-23] MEDS: FINASTERIDE 5MG TAB PO SCH (09:10)
[2021-12-23] MEDS: TAMSULOSIN 0.4 MG CAP PO SCH (09:10)
[2021-12-23] MEDS: OMEPRAZOLE 20MG CAP PO SCH (09:10)
[2021-12-23] MEDS: GABAPENTIN 400MG CAP PO SCH ×3 (09:10→21:56)
[2021-12-24] MEDS: oxyCODONE 5MG TAB PO PRN ×2 (02:48→21:35)
[2021-12-24] MEDS: HEPARIN SOD (PORCINE) 5000UNITS/ML 1ML VIAL/SYRINGE SC SCH ×3 (05:07→21:34)
[2021-12-24 06:00] VITALS: BP 102/65
[2021-12-24] MEDS: HumaLOG INSULIN (NovoLOG) PER UNIT SC SCH ×4 (07:09→20:28)
[2021-12-24] MEDS: CHOLESTYRAMINE 4 GM PWD PKT PO SCH ×4 (08:35→20:31)
[2021-12-24] MEDS: GABAPENTIN 400MG CAP PO SCH ×3 (08:36→21:34)
[2021-12-24] MEDS: FLUoxetine 20MG CAP PO SCH (08:36)
[2021-12-24] MEDS: SOLIFENACIN 5 MG TAB PO SCH (08:36)
[2021-12-24] MEDS: FIBER-CON 625 MG TAB PO SCH ×2 (08:36→21:34)
[2021-12-24] MEDS: FINASTERIDE 5MG TAB PO SCH (08:36)
[2021-12-24] MEDS: ROSUVASTATIN 10 MG TAB (CRESTOR) PO SCH (08:37)
[2021-12-24] MEDS: OMEPRAZOLE 20MG CAP PO SCH (08:37)
[2021-12-24] MEDS: TAMSULOSIN 0.4 MG CAP PO SCH (08:37)
[2021-12-24] MEDS: ACETAMINOPHEN 500 MG TAB PO SCH ×3 (08:37→21:34)
[2021-12-24] MEDS: MECLIZINE 25 MG TABLET PO SCH ×2 (08:37→21:34)
[2021-12-25] MEDS: HEPARIN SOD (PORCINE) 5000UNITS/ML 1ML VIAL/SYRINGE SC SCH ×3 (04:58→21:46)
[2021-12-25 05:05] VITALS: BP 95/57
[2021-12-25 05:39] VITALS: BP 104/72
[2021-12-25 05:52] LABS: HEMATOCRIT 38.2 % (42.0-52.0); HEMOGLOBIN 12.8 g/dl (13.5-17.5); MEAN CORPUSCULAR HEMOGLOBIN 34.7 pg (27.0-33.0); MEAN CORPUSCULAR HGB CONC 33.5 g/dl (32.0-36.5); MEAN CORPUSCULAR VOLUME 103.5 fl (80.0-96.0); PLATELET COUNT, AUTOMATED 379 10^3/uL (150-450); RED BLOOD COUNT 3.69 10^6/uL (4.30-6.10)
[2021-12-25 06:12] LABS: BLOOD UREA NITROGEN 17 MG/DL (7-18); CALCIUM LEVEL 8.5 MG/DL (8.8-10.2); CARBON DIOXIDE LEVEL 24 MEQ/L (21-32); CHLORIDE LEVEL 108 MEQ/L (98-107); CREATININE FOR GFR 0.76 MG/DL (0.70-1.30); GLOMERULAR FILTRATION RATE > 60.0 (>42); GLUCOSE, FASTING 110 MG/DL (70-100); MAGNESIUM LEVEL 1.7 MG/DL (1.8-2.4); POTASSIUM SERUM 4.3 MEQ/L (3.5-5.1); SODIUM LEVEL 138 MEQ/L (136-145)
[2021-12-25] MEDS: HumaLOG INSULIN (NovoLOG) PER UNIT SC SCH ×4 (07:12→21:00)
[2021-12-25] MEDS: ROSUVASTATIN 10 MG TAB (CRESTOR) PO SCH (08:07)
[2021-12-25] MEDS: CHOLESTYRAMINE 4 GM PWD PKT PO SCH ×4 (08:07→21:45)
[2021-12-25] MEDS: MECLIZINE 25 MG TABLET PO SCH ×2 (08:07→21:46)
[2021-12-25] MEDS: SOLIFENACIN 5 MG TAB PO SCH (08:07)
[2021-12-25] MEDS: FIBER-CON 625 MG TAB PO SCH ×2 (08:08→21:45)
[2021-12-25] MEDS: metFORMIN (GLUCOPHAGE) 500MG TAB PO SCH (08:08)
[2021-12-25] MEDS: FLUoxetine 20MG CAP PO SCH (08:08)
[2021-12-25] MEDS: FINASTERIDE 5MG TAB PO SCH (08:08)
[2021-12-25] MEDS: TAMSULOSIN 0.4 MG CAP PO SCH (08:08)
[2021-12-25] MEDS: OMEPRAZOLE 20MG CAP PO SCH (08:08)
[2021-12-25] MEDS: GABAPENTIN 400MG CAP PO SCH ×3 (08:09→21:46)
[2021-12-25] MEDS: ACETAMINOPHEN 500 MG TAB PO SCH ×3 (08:09→21:46)
[2021-12-25] MEDS ORDERED: MAGNESIUM OXIDE 400MG TAB (MAG-OX) PO ONE (09:00)
[2021-12-26] MEDS: HEPARIN SOD (PORCINE) 5000UNITS/ML 1ML VIAL/SYRINGE SC SCH ×3 (06:07→21:53)
[2021-12-26 06:32] VITALS: BP 106/76
[2021-12-26] MEDS: HumaLOG INSULIN (NovoLOG) PER UNIT SC SCH ×4 (07:30→21:00)
[2021-12-26] MEDS: FINASTERIDE 5MG TAB PO SCH (10:24)
[2021-12-26] MEDS: ROSUVASTATIN 10 MG TAB (CRESTOR) PO SCH (10:24)
[2021-12-26] MEDS: SOLIFENACIN 5 MG TAB PO SCH (10:24)
[2021-12-26] MEDS: TAMSULOSIN 0.4 MG CAP PO SCH (10:25)
[2021-12-26] MEDS: FLUoxetine 20MG CAP PO SCH (10:25)
[2021-12-26] MEDS: OMEPRAZOLE 20MG CAP PO SCH (10:25)
[2021-12-26] MEDS: MECLIZINE 25 MG TABLET PO SCH ×2 (10:25→20:21)
[2021-12-26] MEDS: ACETAMINOPHEN 500 MG TAB PO SCH ×3 (10:26→20:21)
[2021-12-26] MEDS: GABAPENTIN 400MG CAP PO SCH ×3 (10:26→20:21)
[2021-12-26] MEDS: metFORMIN (GLUCOPHAGE) 500MG TAB PO SCH (10:29)
[2021-12-26] MEDS: FIBER-CON 625 MG TAB PO SCH ×2 (10:30→20:21)
[2021-12-26] MEDS: CHOLESTYRAMINE 4 GM PWD PKT PO SCH ×4 (11:37→21:53)
[2021-12-26] MEDS: oxyCODONE 5MG TAB PO PRN (11:41)
[2021-12-27] MEDS: HEPARIN SOD (PORCINE) 5000UNITS/ML 1ML VIAL/SYRINGE SC SCH ×3 (05:20→21:50)
[2021-12-27 05:43] VITALS: BP 107/63
[2021-12-27] MEDS: HumaLOG INSULIN (NovoLOG) PER UNIT SC SCH ×4 (07:30→20:26)
[2021-12-27] MEDS: ROSUVASTATIN 10 MG TAB (CRESTOR) PO SCH (08:35)
[2021-12-27] MEDS: FIBER-CON 625 MG TAB PO SCH ×2 (08:36→20:22)
[2021-12-27] MEDS: TAMSULOSIN 0.4 MG CAP PO SCH (08:36)
[2021-12-27] MEDS: ACETAMINOPHEN 500 MG TAB PO SCH ×3 (08:36→20:23)
[2021-12-27] MEDS: FLUoxetine 20MG CAP PO SCH (08:36)
[2021-12-27] MEDS: OMEPRAZOLE 20MG CAP PO SCH (08:36)
[2021-12-27] MEDS: FINASTERIDE 5MG TAB PO SCH (08:36)
[2021-12-27] MEDS: GABAPENTIN 400MG CAP PO SCH (08:36)
[2021-12-27] MEDS: metFORMIN (GLUCOPHAGE) 500MG TAB PO SCH (08:36)
[2021-12-27] MEDS: SOLIFENACIN 5 MG TAB PO SCH (08:37)
[2021-12-27] MEDS: MECLIZINE 25 MG TABLET PO SCH (08:37)
[2021-12-27] MEDS: CHOLESTYRAMINE 4 GM PWD PKT PO SCH ×4 (09:57→20:23)
[2021-12-27 12:38] VITALS: BP 108/76
[2021-12-27 13:56] LABS: BASO # 0.1 10^3/uL (0.0-0.2); BASO % 0.7 % (0.0-1.0); EOS # 0.3 10^3/uL (0.0-0.5); EOS % 2.6 % (0.0-3.0); LYMPH # 1.8 10^3/uL (1.5-5.0); LYMPH % 18.2 % (24.0-44.0); MEAN CORPUSCULAR HGB CONC 32.6 g/dl (32.0-36.5); MEAN CORPUSCULAR VOLUME 104.4 fl (80.0-96.0); MONO % 10.7 % (2.0-8.0); NEUTROPHILS # 6.5 10^3/uL (1.5-8.5); NEUTROPHILS % 66.9 % (36.0-66.0); PLATELET COUNT, AUTOMATED 369 10^3/uL (150-450); RED BLOOD COUNT 4.12 10^6/uL (4.30-6.10); WHITE BLOOD COUNT 9.7 10^3/uL (4.0-10.0)
[2021-12-27 14:27] LABS: BLOOD UREA NITROGEN 18 MG/DL (7-18); CALCIUM LEVEL 9.6 MG/DL (8.8-10.2); CARBON DIOXIDE LEVEL 27 MEQ/L (21-32); CHLORIDE LEVEL 106 MEQ/L (98-107); CREATININE FOR GFR 0.78 MG/DL (0.70-1.30); GLOMERULAR FILTRATION RATE > 60.0 (>42); GLUCOSE, FASTING 110 MG/DL (70-100); POTASSIUM SERUM 4.8 MEQ/L (3.5-5.1); SODIUM LEVEL 140 MEQ/L (136-145)
[2021-12-27] MEDS: GABAPENTIN 300 MG CAP PO SCH ×2 (17:48→20:23)
[2021-12-27] MEDS ORDERED: MECLIZINE 25 MG TABLET PO PRN (21:00)
[2021-12-28] MEDS: HEPARIN SOD (PORCINE) 5000UNITS/ML 1ML VIAL/SYRINGE SC SCH ×3 (05:31→22:45)
[2021-12-28 06:00] VITALS: BP 110/71
[2021-12-28 06:34] LABS: HEMOGLOBIN 13.6 g/dl (13.5-17.5); MEAN CORPUSCULAR HEMOGLOBIN 34.7 pg (27.0-33.0); MEAN CORPUSCULAR HGB CONC 33.2 g/dl (32.0-36.5); MEAN CORPUSCULAR VOLUME 104.6 fl (80.0-96.0); PLATELET COUNT, AUTOMATED 356 10^3/uL (150-450); RED BLOOD COUNT 3.92 10^6/uL (4.30-6.10); WHITE BLOOD COUNT 7.6 10^3/uL (4.0-10.0)
[2021-12-28 07:05] LABS: BLOOD UREA NITROGEN 15 MG/DL (7-18); CALCIUM LEVEL 9.3 MG/DL (8.8-10.2); CARBON DIOXIDE LEVEL 26 MEQ/L (21-32); CHLORIDE LEVEL 106 MEQ/L (98-107); CREATININE FOR GFR 0.74 MG/DL (0.70-1.30); GLOMERULAR FILTRATION RATE > 60.0 (>42); GLUCOSE, FASTING 113 MG/DL (70-100); MAGNESIUM LEVEL 1.9 MG/DL (1.8-2.4); POTASSIUM SERUM 4.7 MEQ/L (3.5-5.1); SODIUM LEVEL 140 MEQ/L (136-145)
[2021-12-28 08:00] VITALS: BP 111/71
[2021-12-28] MEDS: FIBER-CON 625 MG TAB PO SCH ×2 (08:08→20:31)
[2021-12-28] MEDS: FINASTERIDE 5MG TAB PO SCH (08:09)
[2021-12-28] MEDS: GABAPENTIN 300 MG CAP PO SCH ×3 (08:09→20:31)
[2021-12-28] MEDS: OMEPRAZOLE 20MG CAP PO SCH (08:09)
[2021-12-28] MEDS: TAMSULOSIN 0.4 MG CAP PO SCH (08:10)
[2021-12-28] MEDS: ROSUVASTATIN 10 MG TAB (CRESTOR) PO SCH (08:10)
[2021-12-28] MEDS: ACETAMINOPHEN 500 MG TAB PO SCH ×3 (08:10→20:33)
[2021-12-28] MEDS: SOLIFENACIN 5 MG TAB PO SCH (08:11)
[2021-12-28] MEDS: HumaLOG INSULIN (NovoLOG) PER UNIT SC SCH ×4 (08:11→21:00)
[2021-12-28] MEDS: FLUoxetine 20MG CAP PO SCH (08:11)
[2021-12-28] MEDS: CHOLESTYRAMINE 4 GM PWD PKT PO SCH ×4 (09:33→22:46)
[2021-12-28] MEDS: oxyCODONE 5MG TAB PO PRN ×2 (11:34→18:06)
[2021-12-29] MEDS: HEPARIN SOD (PORCINE) 5000UNITS/ML 1ML VIAL/SYRINGE SC SCH (05:26)
[2021-12-29 06:00] VITALS: BP 113/73
[2021-12-29] MEDS: HumaLOG INSULIN (NovoLOG) PER UNIT SC SCH (07:20)
[2021-12-29] MEDS: oxyCODONE 5MG TAB PO PRN (08:26)
[2021-12-29] MEDS: CHOLESTYRAMINE 4 GM PWD PKT PO SCH (08:26)
[2021-12-29] MEDS: GABAPENTIN 300 MG CAP PO SCH (08:27)
[2021-12-29] MEDS: ROSUVASTATIN 10 MG TAB (CRESTOR) PO SCH (08:27)
[2021-12-29] MEDS: FIBER-CON 625 MG TAB PO SCH (08:27)
[2021-12-29] MEDS: OMEPRAZOLE 20MG CAP PO SCH (08:27)
[2021-12-29] MEDS: FINASTERIDE 5MG TAB PO SCH (08:27)
[2021-12-29] MEDS: TAMSULOSIN 0.4 MG CAP PO SCH (08:27)
[2021-12-29] MEDS: SOLIFENACIN 5 MG TAB PO SCH (08:27)
[2021-12-29] MEDS: FLUoxetine 20MG CAP PO SCH (08:28)
[2021-12-29] MEDS: ACETAMINOPHEN 500 MG TAB PO SCH (08:28)
[2021-12-29] MEDS ORDERED: CHOL4PW PO (10:09)
[2021-12-29] MEDS ORDERED: OXYC-517 PO (10:09)
[2021-12-29] MEDS ORDERED: FIBE62TA PO (10:09)
[2021-12-29] MEDS ORDERED: GABA-282 PO (10:09)
[2021-12-29] MEDS ORDERED: MECL-86 PO (10:09)
== END 2021-12-29 11:09 | DRG 386 ==
LOC: M ED 06:09 → M ED INP 15:55 → M 4MAIN 21:55 → OBSVTOIN 12-08 08:01 → M MSPAV 12-15 14:08
PROVIDERS: ADMIT Family Medicine; ATTEND Internal Medicine
PROC: 0DBM8ZX Excision of Descending Colon, Via Natural or Artificial Opening Endoscopic, Diagnostic (ICD-10-PCS; principal; 2021-12-20 13:53)
DX: K50.012 Crohn's disease of small intestine with intestinal obstruction (principal); C18.5 Malignant neoplasm of splenic flexure; K52.1 Toxic gastroenteritis and colitis; E11.40 Type 2 diabetes mellitus with diabetic neuropathy, unspecified; G62.2 Polyneuropathy due to other toxic agents; N40.0 Benign prostatic hyperplasia without lower urinary tract symptoms; L27.1 Localized skin eruption due to drugs and medicaments taken internally; I10 Essential (primary) hypertension; D75.838 Other thrombocytosis; R53.1 Weakness; K64.8 Other hemorrhoids; N48.89 Other specified disorders of penis; F39 Unspecified mood [affective] disorder; T45.1X5A Adverse effect of antineoplastic and immunosuppressive drugs, initial encounter; Z79.84 Long term (current) use of oral hypoglycemic drugs; Z79.899 Other long term (current) drug therapy; Z96.651 Presence of right artificial knee joint; Z96.643 Presence of artificial hip joint, bilateral; Z90.49 Acquired absence of other specified parts of digestive tract

== ENCOUNTER → 2022-01-02 | Outpatient (REF) | payer OTHER ==
[~2022-01-02] MED LIST changes: +CHOL4PW PO; +FIBE62TA PO; +GABA-282 PO; +OXYC-517 PO
== END ==
LOC: SKLAB3 07:00
PROVIDERS: ATTEND Internal Medicine
DX: J06.9 Acute upper respiratory infection, unspecified (principal)

== ENCOUNTER → 2022-01-05 | Outpatient (REF) ==
[2022-01-05 10:10] LABS: BLOOD UREA NITROGEN 14 MG/DL (7-18); CALCIUM LEVEL 9.3 MG/DL (8.8-10.2); CARBON DIOXIDE LEVEL 29 MEQ/L (21-32); CHLORIDE LEVEL 106 MEQ/L (98-107); CREATININE FOR GFR 0.74 MG/DL (0.70-1.30); GLOMERULAR FILTRATION RATE > 60.0 (>42); GLUCOSE, FASTING 136 MG/DL (70-100); MAGNESIUM LEVEL 1.8 MG/DL (1.8-2.4); POTASSIUM SERUM 4.1 MEQ/L (3.5-5.1); SODIUM LEVEL 139 MEQ/L (136-145)
== END ==
LOC: SKLAB3 06:58
PROVIDERS: ATTEND Nurse Practitioner Family
DX: R19.7 Diarrhea, unspecified (principal); I10 Essential (primary) hypertension

== ENCOUNTER → 2022-04-28 | Outpatient (CLI) | payer OTHER ==
[~2022-04-28] MED LIST changes: +TRAM50TA2
== END ==
LOC: M RAD 12:21
PROVIDERS: ATTEND Nurse Practitioner
DX: R22.9 Localized swelling, mass and lump, unspecified (principal); C18.4 Malignant neoplasm of transverse colon

== ENCOUNTER → 2022-05-10 | Outpatient (CLI) | payer OTHER ==
[~2022-05-10] MED LIST changes: +LIDOCAINE 1% MDV 20ML VIAL As Ordered ONE
[2022-05-10 14:32] VITALS: BP 117/81
== END ==
LOC: M IRPRO 13:22
PROVIDERS: ATTEND Nurse Practitioner
DX: C44.509 Unspecified malignant neoplasm of skin of other part of trunk (principal)

== ENCOUNTER → 2022-05-19 | Outpatient (CLI) | payer OTHER ==
[~2022-05-19] MED LIST changes: +GASTROGRAFIN SOLUTION 30ML (Q9963) As Ordered ONE; +ISOVUE-370 76% 100ML VIAL As Ordered ONE; -LIDOCAINE 1% MDV 20ML VIAL As Ordered ONE
== END ==
LOC: M RAD 15:40
PROVIDERS: ATTEND Internal Medicine Medical Oncology
DX: C18.4 Malignant neoplasm of transverse colon (principal)
CPT/HCPCS: 71260; 74177; Q9963; Q9967

== ENCOUNTER → 2022-05-22 | Outpatient (CLI) | payer OTHER ==
[~2022-05-22] MED LIST changes: -GASTROGRAFIN SOLUTION 30ML (Q9963) As Ordered ONE; -ISOVUE-370 76% 100ML VIAL As Ordered ONE
== END ==
LOC: M LABSMTC 11:43
PROVIDERS: ATTEND Anesthesiology
DX: Z11.52 Encounter for screening for COVID-19 (principal)

== ENCOUNTER → 2022-05-24 | Outpatient (CLI) | payer OTHER ==
[~2022-05-24] MED LIST changes: +LIDOCAINE 1% MDV 20ML VIAL As Ordered ONE; +MIDAZOLAM INJ 2MG/2ML VIAL (J2250 PER 1MG) As Ordered ONE; +NS 1,000 ML IV SCH; +ONDA-84 PO; +PROC10TA5 PO; +ceFAZolin 2 GM/D5W 50 ML IV BAG (J0690 PER 500MG) As Ordered ONE; +ceFAZolin SOD 2 GM in IV 1 EA IV ONE; +diphenhydrAMINE 50MG/ML VIAL (J1200) As Ordered ONE; +fentaNYL 100 MCG/2 ML INJECTION As Ordered ONE
[2022-05-24 16:45] VITALS: BP 155/74
== END ==
LOC: M IRPRO 13:35
PROVIDERS: ATTEND Internal Medicine Medical Oncology
DX: C18.5 Malignant neoplasm of splenic flexure (principal)
CPT/HCPCS: 36561; 99152; 99153; C1769; C1788; C1894; J0690; J1642; J1644; J2250; J3010

== ENCOUNTER → 2022-05-31 | Outpatient (CLI) | payer OTHER ==
[~2022-05-31] MED LIST changes: +CLOT1CRE56 TOP; -LIDOCAINE 1% MDV 20ML VIAL As Ordered ONE; -MIDAZOLAM INJ 2MG/2ML VIAL (J2250 PER 1MG) As Ordered ONE; -NS 1,000 ML IV SCH; -ceFAZolin 2 GM/D5W 50 ML IV BAG (J0690 PER 500MG) As Ordered ONE; -ceFAZolin SOD 2 GM in IV 1 EA IV ONE; -diphenhydrAMINE 50MG/ML VIAL (J1200) As Ordered ONE; -fentaNYL 100 MCG/2 ML INJECTION As Ordered ONE
== END ==
LOC: M ONCR 14:29
PROVIDERS: ATTEND Dietitian, Registered
DX: C18.9 Malignant neoplasm of colon, unspecified (principal)

== ENCOUNTER → 2022-06-13 | Outpatient (POV) | payer OTHER ==
[~2022-06-13] VITALS: Ht 190.5 cm; Wt 104.5 kg
[~2022-06-13] MED LIST changes: -CLOT1CRE56 TOP
[2022-06-13 08:50] VITALS: BP 132/89
== END ==
LOC: M IRPOV 08:41
PROVIDERS: ATTEND Radiology Diagnostic Radiology
DX: Z45.2 Encounter for adjustment and management of vascular access device (principal)

== ENCOUNTER → 2022-06-20 | Outpatient (CLI) | payer OTHER ==
[~2022-06-20] MED LIST changes: +CLOT1CRE56 TOP
== END ==
LOC: M ONCR 15:16
PROVIDERS: ATTEND General Practice
DX: C18.9 Malignant neoplasm of colon, unspecified (principal); C78.6 Secondary malignant neoplasm of retroperitoneum and peritoneum; E11.9 Type 2 diabetes mellitus without complications; G56.93 Unspecified mononeuropathy of bilateral upper limbs; G57.83 Other specified mononeuropathies of bilateral lower limbs; Z79.84 Long term (current) use of oral hypoglycemic drugs; Z79.891 Long term (current) use of opiate analgesic; Z79.899 Other long term (current) drug therapy; Z80.0 Family history of malignant neoplasm of digestive organs; Z80.42 Family history of malignant neoplasm of prostate; Z92.21 Personal history of antineoplastic chemotherapy

== ENCOUNTER 2022-07-01 12:31 | Emergency (ER) | payer OTHER ==
[~2022-07-01] VITALS: Ht 190.5 cm; Wt 107.0 kg
[~2022-07-01 12:31] MED LIST changes: -CLOT1CRE56 TOP
[2022-07-01] MEDS ORDERED: COMBIVENT RESPIMAT 100-20MCG INHALER 4GM INH STA (12:57)
[2022-07-01 13:28] LABS: BASO % 0.5 % (0.0-1.0); EOS # 0.2 10^3/uL (0.0-0.5); EOS % 3.9 % (0.0-3.0); HEMATOCRIT 41.1 % (42.0-52.0); HEMOGLOBIN 12.6 g/dl (13.5-17.5); LYMPH # 0.8 10^3/uL (1.5-5.0); LYMPH % 13.7 % (24.0-44.0); MEAN CORPUSCULAR HEMOGLOBIN 25.8 pg (27.0-33.0); MEAN CORPUSCULAR HGB CONC 30.7 g/dl (32.0-36.5); MEAN CORPUSCULAR VOLUME 84.2 fl (80.0-96.0); MONO # 0.3 10^3/uL (0.0-0.8); MONO % 4.6 % (2.0-8.0); NEUTROPHILS # 4.5 10^3/uL (1.5-8.5); PLATELET COUNT, AUTOMATED 555 10^3/uL (150-450); RED BLOOD COUNT 4.88 10^6/uL (4.30-6.10); WHITE BLOOD COUNT 5.9 10^3/uL (4.0-10.0)
[2022-07-01 13:30] LABS: VENOUS BASE EXCESS 3.8 (-2.0-2.0); VENOUS HCO3 29.2 MEQ/L (23.0-27.0); VENOUS O2 SATURATION 85.1 % (60.0-80.0); VENOUS PARTIAL PRESSURE CO2 47.3 mmHg (38.0-50.0); VENOUS PARTIAL PRESSURE O2 48.8 mmHg (30.0-50.0); VENOUS PH 7.409 UNITS (7.330-7.430); VENOUS STANDARD HCO3 27.6 MEQ/L; VENOUS TOTAL CO2 30.7 MEQ/L (24.0-28.0)
[2022-07-01 13:44] LABS: INR 0.99; PROTHROMBIN TIME 13.3 SECONDS (12.5-14.5)
[2022-07-01 14:19] LABS: ALBUMIN 2.6 GM/DL (3.2-5.2); ALT/SGPT 17 U/L (12-78); BILIRUBIN,DIRECT 0.1 MG/DL (0.0-0.2); BILIRUBIN,TOTAL 0.3 MG/DL (0.2-1.0); BLOOD UREA NITROGEN 19 MG/DL (7-18); CALCIUM LEVEL 8.7 MG/DL (8.8-10.2); CARBON DIOXIDE LEVEL 31 MEQ/L (21-32); CHLORIDE LEVEL 102 MEQ/L (98-107); CREATININE FOR GFR 0.76 MG/DL (0.70-1.30); GLOMERULAR FILTRATION RATE > 60.0 (>42); GLUCOSE, FASTING 115 MG/DL (70-100); NT-PRO BNP 491 PG/ML (<450); POTASSIUM SERUM 4.3 MEQ/L (3.5-5.1); SODIUM LEVEL 139 MEQ/L (136-145); THYROID STIMULATING HORMONE 0.793 uIU/ML (0.358-3.740); TOTAL PROTEIN 6.6 GM/DL (6.4-8.2)
[2022-07-01] MEDS ORDERED: ISOVUE-370 76% 100ML VIAL As Ordered ONE ×2 (15:49→16:11)
[2022-07-01] MEDS ORDERED: oxyCODONE 5MG TAB PO ONE (17:20)
[2022-07-01 18:19] VITALS: BP 124/83
[2022-07-10] MEDS ORDERED: OXYC-517 PO ×2 (15:52→15:53)
[2022-07-10] MEDS ORDERED: CLOT1CRE56 TOP (15:53)
== END 2022-07-01 18:24 | disposition home or self-care (01) ==
LOC: M ED 12:31
DX: Z79.899 Other long term (current) drug therapy (principal); Z79.84 Long term (current) use of oral hypoglycemic drugs; R06.02 Shortness of breath; R18.8 Other ascites; E11.21 Type 2 diabetes mellitus with diabetic nephropathy; Z90.89 Acquired absence of other organs
CPT/HCPCS: 36415; 71045; 71275; 80048; 80076; 82803; 83605; 83880; 84443; 85025; 85610; 87040; 87486; 87581; 87633; 87798; 93005; 93041; 94640; 94664; 94760; 99284; Q9967

== ENCOUNTER → 2022-07-06 | Outpatient (CLI) | payer OTHER ==
[~2022-07-06] MED LIST changes: +CLOT1CRE56 TOP
[2022-07-06 11:45] VITALS: BP 124/72
== END ==
LOC: M IRPRO 09:51
PROVIDERS: ATTEND General Practice
DX: C78.6 Secondary malignant neoplasm of retroperitoneum and peritoneum (principal); R18.0 Malignant ascites

== ENCOUNTER 2022-07-25 14:51 | Outpatient (RCR) | payer OTHER ==
[2022-07-26] MEDS ORDERED: OXYC-517 PO (11:18)
[2022-07-27] MEDS ORDERED: OXYC-517 PO (12:08)
== END 2022-07-26 ==
LOC: M ONCR 14:51
PROVIDERS: ATTEND General Practice
DX: G91.2 (Idiopathic) normal pressure hydrocephalus (principal)

== ENCOUNTER → 2022-07-27 | Outpatient (CLI) | payer OTHER ==
[~2022-07-27] MED LIST changes: +LIDOCAINE 1% MDV 20ML VIAL As Ordered ONE
[2022-07-27 10:20] VITALS: BP 120/68
== END ==
LOC: M IRPRO 08:54
PROVIDERS: ATTEND General Practice
DX: C78.6 Secondary malignant neoplasm of retroperitoneum and peritoneum (principal); R18.0 Malignant ascites

== ENCOUNTER 2022-08-01 16:13 | Inpatient (IN) | payer OTHER, MEDICARE ==
[~2022-08-01] VITALS: Ht 190.5 cm; Wt 105.0 kg
[~2022-08-01 16:13] MED LIST changes: -LIDOCAINE 1% MDV 20ML VIAL As Ordered ONE
[2022-08-01] MEDS ORDERED: MORPHINE 4 MG/ML 1ML VIAL IV ONE (19:00)
[2022-08-01] MEDS ORDERED: NS 1,000 ML IV ONE (19:00)
[2022-08-01] MEDS ORDERED: ONDANSETRON 4MG 2ML VIAL IV ONE (19:00)
[2022-08-01 19:57] LABS: BASO % 0.5 % (0.0-1.0); EOS % 0.1 % (0.0-3.0); HEMOGLOBIN 14.4 g/dl (13.5-17.5); LYMPH # 0.5 10^3/uL (1.5-5.0); LYMPH % 6.8 % (24.0-44.0); MEAN CORPUSCULAR HEMOGLOBIN 26.5 pg (27.0-33.0); MEAN CORPUSCULAR VOLUME 82.7 fl (80.0-96.0); MONO # 0.6 10^3/uL (0.0-0.8); MONO % 8.2 % (2.0-8.0); NEUTROPHILS # 6.5 10^3/uL (1.5-8.5); NEUTROPHILS % 83.2 % (36.0-66.0); PLATELET COUNT, AUTOMATED 518 10^3/uL (150-450); RED BLOOD COUNT 5.44 10^6/uL (4.30-6.10); WHITE BLOOD COUNT 7.8 10^3/uL (4.0-10.0)
[2022-08-01] MEDS ORDERED: ISOVUE-370 76% 100ML VIAL As Ordered ONE (20:01)
[2022-08-01 20:34] LABS: BILIRUBIN,DIRECT 0.1 MG/DL (<0.4)
[2022-08-01 20:35] LABS: ALBUMIN 2.6 G/DL (3.2-5.2); BILIRUBIN,TOTAL 0.4 MG/DL (0.3-1.2); POTASSIUM SERUM 5.3 MMOL/L (3.5-5.1); TOTAL PROTEIN 6.1 G/DL (5.7-8.2)
[2022-08-01] MEDS ORDERED: DEXTROSE 50% 50ML SYRINGE IV PRN (22:50)
[2022-08-01] MEDS ORDERED: GLUCOSE 4GM CHEW TABLET PO PRN (22:50)
[2022-08-01] MEDS: LR 1,000 ML IV SCH (22:50)
[2022-08-01] MEDS ORDERED: MORPHINE 2 MG/ML 1ML VIAL IV PRN (22:50)
[2022-08-01] MEDS ORDERED: GLUCAGON INJ 1MG VIAL SC PRN (22:50)
[2022-08-02] MEDS ORDERED: PANTOPRAZOLE 40MG VIAL IV ONE (01:40)
[2022-08-02] MEDS ORDERED: CHLORASEPTIC SPRAY MT PRN (01:40)
[2022-08-02] MEDS: INSULIN LISPRO (NovoLOG) PER UNIT SC SCH ×4 (05:57→18:00)
[2022-08-02] MEDS ORDERED: MIRA1POW3 PO (06:22)
[2022-08-02] MEDS ORDERED: ACET650T3 PO (06:22)
[2022-08-02] MEDS ORDERED: MECL-86 PO (06:22)
[2022-08-02] MEDS ORDERED: FURO20TA2 PO (06:22)
[2022-08-02] MEDS ORDERED: GABA-282 PO (06:22)
[2022-08-02] MEDS ORDERED: HOME MED LIST COMPLETE! XX SCH (06:25)
[2022-08-02] MEDS: LR 1,000 ML IV SCH ×2 (06:41→14:07)
[2022-08-02 06:57] LABS: MEAN CORPUSCULAR HEMOGLOBIN 26.1 pg (27.0-33.0); MEAN CORPUSCULAR HGB CONC 30.8 g/dl (32.0-36.5); MEAN CORPUSCULAR VOLUME 84.7 fl (80.0-96.0); PLATELET COUNT, AUTOMATED 445 10^3/uL (150-450); RED BLOOD COUNT 4.72 10^6/uL (4.30-6.10); WHITE BLOOD COUNT 5.7 10^3/uL (4.0-10.0)
[2022-08-02 07:10] LABS: HEMOGLOBIN 12.3 g/dl (13.5-17.5)
[2022-08-02 07:13] LABS: INR 0.96
[2022-08-02 07:14] LABS: PARTIAL THROMBOPLASTIN TIME 31.3 SECONDS (24.8-34.2)
[2022-08-02 07:30] LABS: MAGNESIUM LEVEL 1.5 MG/DL (1.8-2.4)
[2022-08-02 07:31] LABS: BLOOD UREA NITROGEN 24 MG/DL (9-23); CALCIUM LEVEL 8.1 MG/DL (8.3-10.6); CARBON DIOXIDE LEVEL 31 MMOL/L (20-31); CHLORIDE LEVEL 97 MMOL/L (98-107); CREATININE FOR GFR 0.87 MG/DL (0.70-1.30); GLOMERULAR FILTRATION RATE > 60.0 (>42); GLUCOSE, FASTING 99 MG/DL (74-106); POTASSIUM SERUM 4.5 MMOL/L (3.5-5.1); SODIUM LEVEL 138 MMOL/L (136-145)
[2022-08-02] MEDS: PANTOPRAZOLE 40MG VIAL IV SCH (08:43)
[2022-08-02] MEDS: MORPHINE 4 MG/ML 1ML VIAL IV PRN ×3 (12:25→21:34)
[2022-08-02 15:51] VITALS: BP 107/70
[2022-08-02] MEDS: OCTREOTIDE ACETATE 100MCG/ML VIAL **SC ADMINISTRATION ONLY SC SCH ×2 (16:18→21:24)
[2022-08-02] MEDS: D5W/0.45% SODIUM CHLORIDE 1,000 ML IV SCH ×2 (18:08→20:03)
[2022-08-02 19:16] LABS: MAGNESIUM LEVEL 1.6 MG/DL (1.8-2.4)
[2022-08-02 19:17] LABS: POTASSIUM SERUM 4.9 MMOL/L (3.5-5.1)
[2022-08-02 20:00] VITALS: BP 109/69
[2022-08-02 21:00] VITALS: BP 112/71
[2022-08-02] MEDS: MAG SULF 1GM/100ML (MAG RUN) 1 GM in IV 1 EA IV SCH ×2 (21:25→22:38)
[2022-08-03] MEDS: OCTREOTIDE ACETATE 100MCG/ML VIAL **SC ADMINISTRATION ONLY SC SCH ×3 (05:16→23:42)
[2022-08-03] MEDS: INSULIN LISPRO (NovoLOG) PER UNIT SC SCH ×5 (05:55→23:52)
[2022-08-03 06:37] LABS: HEMOGLOBIN 11.6 g/dl (13.5-17.5); MEAN CORPUSCULAR HEMOGLOBIN 26.5 pg (27.0-33.0); MEAN CORPUSCULAR HGB CONC 31.4 g/dl (32.0-36.5); MEAN CORPUSCULAR VOLUME 84.5 fl (80.0-96.0); PLATELET COUNT, AUTOMATED 377 10^3/uL (150-450); RED BLOOD COUNT 4.38 10^6/uL (4.30-6.10); WHITE BLOOD COUNT 4.4 10^3/uL (4.0-10.0)
[2022-08-03] MEDS: MORPHINE 4 MG/ML 1ML VIAL IV PRN ×4 (06:58→23:42)
[2022-08-03 07:09] LABS: MAGNESIUM LEVEL 1.9 MG/DL (1.8-2.4)
[2022-08-03 07:31] LABS: BLOOD UREA NITROGEN 10 MG/DL (9-23); CALCIUM LEVEL 7.5 MG/DL (8.3-10.6); CARBON DIOXIDE LEVEL 31 MMOL/L (20-31); CHLORIDE LEVEL 101 MMOL/L (98-107); CREATININE FOR GFR 0.77 MG/DL (0.70-1.30); GLOMERULAR FILTRATION RATE > 60.0 (>42); GLUCOSE, FASTING 124 MG/DL (74-106); POTASSIUM SERUM 4.4 MMOL/L (3.5-5.1); SODIUM LEVEL 136 MMOL/L (136-145)
[2022-08-03] MEDS: PANTOPRAZOLE 40MG VIAL IV SCH (08:31)
[2022-08-03] MEDS ORDERED: FLUBLOK(EGG FREE)(QUAD)INFLUENZA VACC 0.5ML SYRINGE 18YRS & OLDER IM.IMMUN ONE (09:00)
[2022-08-03] MEDS: ONDANSETRON 4MG 2ML VIAL IV PRN (12:55)
[2022-08-03] MEDS: D5W/0.45% SODIUM CHLORIDE 1,000 ML IV SCH ×2 (15:07→23:52)
[2022-08-03 15:36] VITALS: BP 111/70
[2022-08-03 22:00] VITALS: BP 110/70
[2022-08-04] MEDS: MORPHINE 4 MG/ML 1ML VIAL IV PRN ×3 (04:52→17:51)
[2022-08-04 06:00] VITALS: BP 106/67
[2022-08-04] MEDS: OCTREOTIDE ACETATE 100MCG/ML VIAL **SC ADMINISTRATION ONLY SC SCH ×3 (06:33→21:01)
[2022-08-04] MEDS: INSULIN LISPRO (NovoLOG) PER UNIT SC SCH ×3 (06:34→18:00)
[2022-08-04 06:40] LABS: HEMATOCRIT 39.1 % (42.0-52.0); HEMOGLOBIN 12.3 g/dl (13.5-17.5); MEAN CORPUSCULAR HEMOGLOBIN 26.5 pg (27.0-33.0); MEAN CORPUSCULAR HGB CONC 31.5 g/dl (32.0-36.5); MEAN CORPUSCULAR VOLUME 84.3 fl (80.0-96.0); PLATELET COUNT, AUTOMATED 416 10^3/uL (150-450); RED BLOOD COUNT 4.64 10^6/uL (4.30-6.10); WHITE BLOOD COUNT 7.7 10^3/uL (4.0-10.0)
[2022-08-04 06:49] LABS: MAGNESIUM LEVEL 1.7 MG/DL (1.8-2.4)
[2022-08-04 06:51] LABS: BLOOD UREA NITROGEN 10 MG/DL (9-23); CALCIUM LEVEL 7.4 MG/DL (8.3-10.6); CARBON DIOXIDE LEVEL 27 MMOL/L (20-31); CHLORIDE LEVEL 100 MMOL/L (98-107); CREATININE FOR GFR 0.64 MG/DL (0.70-1.30); GLOMERULAR FILTRATION RATE > 60.0 (>42); GLUCOSE, FASTING 113 MG/DL (74-106); POTASSIUM SERUM 3.9 MMOL/L (3.5-5.1); SODIUM LEVEL 137 MMOL/L (136-145)
[2022-08-04] MEDS: PANTOPRAZOLE 40MG VIAL IV SCH (08:09)
[2022-08-04] MEDS: MAG SULF 1GM/100ML (MAG RUN) 1 GM in IV 1 EA IV SCH ×2 (08:10→09:55)
[2022-08-04] MEDS: D5W/0.45% SODIUM CHLORIDE 1,000 ML IV SCH ×2 (08:10→09:56)
[2022-08-04 09:00] VITALS: BP 104/66
[2022-08-04] MEDS: DOCUSATE SOD LIQ 100MG/10ML UDC GT SCH ×2 (12:00→21:01)
[2022-08-04 14:00] VITALS: BP 116/76
[2022-08-04] MEDS: ACETAMINOPHEN TAB 650MG DOSE (2X325MG) PO PRN ×2 (14:26→18:50)
[2022-08-04 20:00] VITALS: BP 112/74
[2022-08-04] MEDS: traZODone 50 MG TAB PO PRN (21:01)
[2022-08-05] MEDS: MORPHINE 4 MG/ML 1ML VIAL IV PRN ×3 (01:15→19:05)
[2022-08-05] MEDS: D5W/0.45% SODIUM CHLORIDE 1,000 ML IV SCH ×2 (03:24→20:58)
[2022-08-05 06:00] VITALS: BP 112/73
[2022-08-05] MEDS: INSULIN LISPRO (NovoLOG) PER UNIT SC SCH ×5 (06:00→23:48)
[2022-08-05] MEDS: OCTREOTIDE ACETATE 100MCG/ML VIAL **SC ADMINISTRATION ONLY SC SCH ×3 (06:52→21:23)
[2022-08-05 07:03] LABS: HEMOGLOBIN 13.5 g/dl (13.5-17.5); MEAN CORPUSCULAR HEMOGLOBIN 26.5 pg (27.0-33.0); MEAN CORPUSCULAR HGB CONC 31.4 g/dl (32.0-36.5); MEAN CORPUSCULAR VOLUME 84.3 fl (80.0-96.0); PLATELET COUNT, AUTOMATED 422 10^3/uL (150-450); WHITE BLOOD COUNT 11.6 10^3/uL (4.0-10.0)
[2022-08-05 07:26] LABS: MAGNESIUM LEVEL 1.8 MG/DL (1.8-2.4)
[2022-08-05 07:28] LABS: BLOOD UREA NITROGEN 7 MG/DL (9-23); CALCIUM LEVEL 7.7 MG/DL (8.3-10.6); CARBON DIOXIDE LEVEL 30 MMOL/L (20-31); CHLORIDE LEVEL 98 MMOL/L (98-107); CREATININE FOR GFR 0.59 MG/DL (0.70-1.30); GLOMERULAR FILTRATION RATE > 60.0 (>42); GLUCOSE, FASTING 119 MG/DL (74-106); SODIUM LEVEL 135 MMOL/L (136-145)
[2022-08-05 08:00] VITALS: BP 110/72
[2022-08-05] MEDS: ACETAMINOPHEN TAB 650MG DOSE (2X325MG) PO PRN ×2 (08:18→19:06)
[2022-08-05] MEDS: PANTOPRAZOLE 40MG VIAL IV SCH (10:01)
[2022-08-05] MEDS: DOCUSATE SOD LIQ 100MG/10ML UDC GT SCH ×2 (10:08→21:23)
[2022-08-05] MEDS ORDERED: GI COCKTAIL 50ML BTL(HYOSCYAMINE/MAALOX/LIDOCAINE VISCOUS)(1:3:1) PO PRN (12:55)
[2022-08-05 14:00] VITALS: BP 114/72
[2022-08-05] MEDS ORDERED: GI COCKTAIL 50ML BTL(HYOSCYAMINE/MAALOX/LIDOCAINE VISCOUS)(1:3:1) PO ONE (14:00)
[2022-08-05] MEDS: traZODone 50 MG TAB PO PRN (21:23)
[2022-08-05 21:47] VITALS: BP 114/74
[2022-08-06] MEDS: OCTREOTIDE ACETATE 100MCG/ML VIAL **SC ADMINISTRATION ONLY SC SCH ×3 (05:53→23:07)
[2022-08-06 06:00] VITALS: BP 90/55
[2022-08-06] MEDS: INSULIN LISPRO (NovoLOG) PER UNIT SC SCH ×4 (06:00→23:21)
[2022-08-06 06:24] LABS: HEMATOCRIT 45.4 % (42.0-52.0); HEMOGLOBIN 14.1 g/dl (13.5-17.5); MEAN CORPUSCULAR HEMOGLOBIN 26.6 pg (27.0-33.0); MEAN CORPUSCULAR HGB CONC 31.1 g/dl (32.0-36.5); MEAN CORPUSCULAR VOLUME 85.5 fl (80.0-96.0); PLATELET COUNT, AUTOMATED 402 10^3/uL (150-450); RED BLOOD COUNT 5.31 10^6/uL (4.30-6.10); WHITE BLOOD COUNT 10.8 10^3/uL (4.0-10.0)
[2022-08-06 06:42] LABS: MAGNESIUM LEVEL 1.9 MG/DL (1.8-2.4)
[2022-08-06 06:44] VITALS: BP 91/53
[2022-08-06 06:44] LABS: BLOOD UREA NITROGEN 6 MG/DL (9-23); CARBON DIOXIDE LEVEL 29 MMOL/L (20-31); CHLORIDE LEVEL 100 MMOL/L (98-107); CREATININE FOR GFR 0.68 MG/DL (0.70-1.30); GLOMERULAR FILTRATION RATE > 60.0 (>42); GLUCOSE, FASTING 106 MG/DL (74-106); POTASSIUM SERUM 3.9 MMOL/L (3.5-5.1); SODIUM LEVEL 137 MMOL/L (136-145)
[2022-08-06] MEDS ORDERED: NS 500 ML IV ONE (07:40)
[2022-08-06] MEDS: MIDODRINE 5 MG TAB PO SCH ×3 (09:32→18:05)
[2022-08-06] MEDS: PANTOPRAZOLE 40MG VIAL IV SCH (09:32)
[2022-08-06] MEDS: DOCUSATE SOD LIQ 100MG/10ML UDC GT SCH ×2 (09:39→20:28)
[2022-08-06] MEDS: MORPHINE 4 MG/ML 1ML VIAL IV PRN ×3 (09:51→22:30)
[2022-08-06] MEDS: ONDANSETRON 4MG 2ML VIAL IV PRN (09:57)
[2022-08-06] MEDS: ACETAMINOPHEN TAB 650MG DOSE (2X325MG) PO PRN (13:06)
[2022-08-06 14:00] VITALS: BP 114/66
[2022-08-06 20:00] VITALS: BP 113/70
[2022-08-06] MEDS: D5W/0.45% SODIUM CHLORIDE 1,000 ML IV SCH (22:31)
[2022-08-07] MEDS: ONDANSETRON 4MG 2ML VIAL IV PRN ×4 (02:45→18:41)
[2022-08-07] MEDS: MORPHINE 4 MG/ML 1ML VIAL IV PRN ×4 (02:46→18:42)
[2022-08-07] MEDS: OCTREOTIDE ACETATE 100MCG/ML VIAL **SC ADMINISTRATION ONLY SC SCH (05:12)
[2022-08-07 05:20] VITALS: BP 109/62
[2022-08-07 05:49] LABS: HEMATOCRIT 42.8 % (42.0-52.0); HEMOGLOBIN 13.4 g/dl (13.5-17.5); MEAN CORPUSCULAR HEMOGLOBIN 26.6 pg (27.0-33.0); MEAN CORPUSCULAR HGB CONC 31.3 g/dl (32.0-36.5); MEAN CORPUSCULAR VOLUME 84.9 fl (80.0-96.0); PLATELET COUNT, AUTOMATED 380 10^3/uL (150-450); RED BLOOD COUNT 5.04 10^6/uL (4.30-6.10); WHITE BLOOD COUNT 8.6 10^3/uL (4.0-10.0)
[2022-08-07] MEDS: INSULIN LISPRO (NovoLOG) PER UNIT SC SCH ×3 (06:00→16:57)
[2022-08-07 06:15] LABS: MAGNESIUM LEVEL 1.7 MG/DL (1.8-2.4)
[2022-08-07 06:17] LABS: BLOOD UREA NITROGEN 7 MG/DL (9-23); CALCIUM LEVEL 7.3 MG/DL (8.3-10.6); CARBON DIOXIDE LEVEL 28 MMOL/L (20-31); CHLORIDE LEVEL 101 MMOL/L (98-107); CREATININE FOR GFR 0.63 MG/DL (0.70-1.30); GLOMERULAR FILTRATION RATE > 60.0 (>42); GLUCOSE, FASTING 90 MG/DL (74-106); POTASSIUM SERUM 3.8 MMOL/L (3.5-5.1); SODIUM LEVEL 139 MMOL/L (136-145)
[2022-08-07] MEDS: PANTOPRAZOLE 40MG VIAL IV SCH (09:02)
[2022-08-07] MEDS: DOCUSATE SOD LIQ 100MG/10ML UDC GT SCH ×2 (09:03→21:00)
[2022-08-07] MEDS: MIDODRINE 5 MG TAB PO SCH ×3 (09:03→16:22)
[2022-08-07] MEDS ORDERED: E-Z-PAQUE 96% w/w SUSP 176GM BTL As Ordered ONE (09:03)
[2022-08-07 14:00] VITALS: BP 121/77
[2022-08-07] MEDS: ACETAMINOPHEN TAB 650MG DOSE (2X325MG) PO PRN (16:22)
[2022-08-07] MEDS: D5W/0.45% SODIUM CHLORIDE 1,000 ML IV SCH (18:45)
[2022-08-07 21:00] VITALS: BP 114/78
[2022-08-08] MEDS: MORPHINE 4 MG/ML 1ML VIAL IV PRN ×2 (04:01→08:37)
[2022-08-08] MEDS: ONDANSETRON 4MG 2ML VIAL IV PRN ×2 (04:01→08:37)
[2022-08-08 05:30] VITALS: BP 113/76
[2022-08-08] MEDS: INSULIN LISPRO (NovoLOG) PER UNIT SC SCH ×5 (05:46→23:30)
[2022-08-08 06:05] LABS: HEMATOCRIT 42.7 % (42.0-52.0); HEMOGLOBIN 13.3 g/dl (13.5-17.5); MEAN CORPUSCULAR HEMOGLOBIN 26.4 pg (27.0-33.0); MEAN CORPUSCULAR HGB CONC 31.1 g/dl (32.0-36.5); MEAN CORPUSCULAR VOLUME 84.9 fl (80.0-96.0); PLATELET COUNT, AUTOMATED 404 10^3/uL (150-450); RED BLOOD COUNT 5.03 10^6/uL (4.30-6.10); WHITE BLOOD COUNT 8.5 10^3/uL (4.0-10.0)
[2022-08-08 06:36] LABS: MAGNESIUM LEVEL 1.7 MG/DL (1.8-2.4)
[2022-08-08 06:38] LABS: BLOOD UREA NITROGEN 8 MG/DL (9-23); CALCIUM LEVEL 7.6 MG/DL (8.3-10.6); CARBON DIOXIDE LEVEL 29 MMOL/L (20-31); CHLORIDE LEVEL 102 MMOL/L (98-107); CREATININE FOR GFR 0.72 MG/DL (0.70-1.30); GLOMERULAR FILTRATION RATE > 60.0 (>42); GLUCOSE, FASTING 100 MG/DL (74-106); POTASSIUM SERUM 3.7 MMOL/L (3.5-5.1); SODIUM LEVEL 140 MMOL/L (136-145)
[2022-08-08] MEDS: MIDODRINE 5 MG TAB PO SCH ×3 (08:36→17:00)
[2022-08-08] MEDS: PANTOPRAZOLE 40MG VIAL IV SCH (08:36)
[2022-08-08] MEDS: DOCUSATE SODIUM 100MG CAPSULE PO SCH (10:47)
[2022-08-08] MEDS: D5W/0.45% SODIUM CHLORIDE 1,000 ML IV SCH (12:23)
[2022-08-08 14:00] VITALS: BP 119/72
[2022-08-08 22:00] VITALS: BP 138/98
[2022-08-08 23:30] VITALS: BP 103/60
[2022-08-09] MEDS: DOCUSATE SODIUM 100MG CAPSULE PO SCH ×3 (00:02→22:32)
[2022-08-09] MEDS: traZODone 50 MG TAB PO PRN ×2 (00:02→23:41)
[2022-08-09] MEDS: MORPHINE 4 MG/ML 1ML VIAL IV PRN ×4 (00:03→23:42)
[2022-08-09] MEDS: ONDANSETRON 4MG 2ML VIAL IV PRN ×3 (00:03→23:42)
[2022-08-09] MEDS: oxyCODONE 5MG TAB PO PRN ×3 (01:25→22:59)
[2022-08-09] MEDS: D5W/0.45% SODIUM CHLORIDE 1,000 ML IV SCH ×2 (04:01→22:32)
[2022-08-09] MEDS: INSULIN LISPRO (NovoLOG) PER UNIT SC SCH ×2 (05:34→12:20)
[2022-08-09 06:00] VITALS: BP 126/77
[2022-08-09 06:23] LABS: HEMATOCRIT 40.8 % (42.0-52.0); HEMOGLOBIN 12.7 g/dl (13.5-17.5); MEAN CORPUSCULAR HEMOGLOBIN 26.4 pg (27.0-33.0); MEAN CORPUSCULAR HGB CONC 31.1 g/dl (32.0-36.5); MEAN CORPUSCULAR VOLUME 84.8 fl (80.0-96.0); PLATELET COUNT, AUTOMATED 401 10^3/uL (150-450); RED BLOOD COUNT 4.81 10^6/uL (4.30-6.10); WHITE BLOOD COUNT 6.2 10^3/uL (4.0-10.0)
[2022-08-09 06:56] LABS: MAGNESIUM LEVEL 1.6 MG/DL (1.8-2.4)
[2022-08-09 06:58] LABS: ALBUMIN 1.8 G/DL (3.2-5.2); ALKALINE PHOSPHATASE 87 U/L (46-116); ALT/SGPT < 9 U/L (7.0-40); AST/SGOT 14 U/L (<34); BILIRUBIN,TOTAL 0.4 MG/DL (0.3-1.2); BLOOD UREA NITROGEN 8 MG/DL (9-23); CALCIUM LEVEL 7.7 MG/DL (8.3-10.6); CARBON DIOXIDE LEVEL 33 MMOL/L (20-31); CHLORIDE LEVEL 100 MMOL/L (98-107); CREATININE FOR GFR 0.88 MG/DL (0.70-1.30); GLOMERULAR FILTRATION RATE > 60.0 (>42); GLUCOSE, FASTING 99 MG/DL (74-106); POTASSIUM SERUM 3.7 MMOL/L (3.5-5.1); SODIUM LEVEL 138 MMOL/L (136-145); TOTAL PROTEIN 4.7 G/DL (5.7-8.2)
[2022-08-09] MEDS: PANTOPRAZOLE 40MG VIAL IV SCH (09:18)
[2022-08-09] MEDS: MIDODRINE 5 MG TAB PO SCH ×3 (09:19→17:12)
[2022-08-09 14:00] VITALS: BP 113/74
[2022-08-09] MEDS ORDERED: INSULIN LISPRO (NovoLOG) PER UNIT SC SCH (17:30)
[2022-08-09 22:00] VITALS: BP 120/77
[2022-08-10 06:00] VITALS: BP 117/79
[2022-08-10 06:25] LABS: HEMATOCRIT 41.8 % (42.0-52.0); HEMOGLOBIN 12.9 g/dl (13.5-17.5); MEAN CORPUSCULAR HEMOGLOBIN 26.6 pg (27.0-33.0); MEAN CORPUSCULAR HGB CONC 30.9 g/dl (32.0-36.5); MEAN CORPUSCULAR VOLUME 86.2 fl (80.0-96.0); PLATELET COUNT, AUTOMATED 422 10^3/uL (150-450); RED BLOOD COUNT 4.85 10^6/uL (4.30-6.10); WHITE BLOOD COUNT 6.4 10^3/uL (4.0-10.0)
[2022-08-10 06:42] LABS: MAGNESIUM LEVEL 1.5 MG/DL (1.8-2.4)
[2022-08-10] MEDS: ONDANSETRON 4MG 2ML VIAL IV PRN ×4 (06:43→22:39)
[2022-08-10] MEDS: MORPHINE 4 MG/ML 1ML VIAL IV PRN ×4 (06:44→22:40)
[2022-08-10 06:46] LABS: ALBUMIN 1.6 G/DL (3.2-5.2); ALKALINE PHOSPHATASE 94 U/L (46-116); ALT/SGPT < 9 U/L (7.0-40); AST/SGOT 13 U/L (<34); BILIRUBIN,TOTAL 0.3 MG/DL (0.3-1.2); BLOOD UREA NITROGEN 9 MG/DL (9-23); CALCIUM LEVEL 7.7 MG/DL (8.3-10.6); CARBON DIOXIDE LEVEL 33 MMOL/L (20-31); CHLORIDE LEVEL 102 MMOL/L (98-107); CREATININE FOR GFR 0.84 MG/DL (0.70-1.30); GLOMERULAR FILTRATION RATE > 60.0 (>42); GLUCOSE, FASTING 98 MG/DL (74-106); POTASSIUM SERUM 3.5 MMOL/L (3.5-5.1); SODIUM LEVEL 140 MMOL/L (136-145); TOTAL PROTEIN 4.6 G/DL (5.7-8.2)
[2022-08-10] MEDS ORDERED: INSULIN LISPRO (NovoLOG) PER UNIT SC SCH ×2 (07:30→21:00)
[2022-08-10] MEDS: PANTOPRAZOLE 40MG VIAL IV SCH (08:44)
[2022-08-10] MEDS: MIDODRINE 5 MG TAB PO SCH ×3 (08:45→17:00)
[2022-08-10] MEDS: DOCUSATE SODIUM 100MG CAPSULE PO SCH ×2 (08:45→22:39)
[2022-08-10] MEDS: oxyCODONE 5MG TAB PO PRN (08:57)
[2022-08-10] MEDS: MAGNESIUM OXIDE 400MG TAB (MAG-OX) PO SCH ×2 (10:44→22:38)
[2022-08-10] MEDS: D5W/0.45% SODIUM CHLORIDE 1,000 ML IV SCH (13:55)
[2022-08-10 14:00] VITALS: BP 120/81
[2022-08-10] MEDS: MIRALAX *UNIT DOSE* 17GM PACKET PO SCH ×2 (18:20→22:38)
[2022-08-10 20:45] VITALS: BP 105/69
[2022-08-10] MEDS: traZODone 50 MG TAB PO PRN (22:38)
[2022-08-11 06:00] VITALS: BP 126/80
[2022-08-11 06:30] LABS: HEMATOCRIT 39.5 % (42.0-52.0); HEMOGLOBIN 12.3 g/dl (13.5-17.5); MEAN CORPUSCULAR HEMOGLOBIN 26.5 pg (27.0-33.0); MEAN CORPUSCULAR HGB CONC 31.1 g/dl (32.0-36.5); MEAN CORPUSCULAR VOLUME 85.1 fl (80.0-96.0); PLATELET COUNT, AUTOMATED 412 10^3/uL (150-450); RED BLOOD COUNT 4.64 10^6/uL (4.30-6.10)
[2022-08-11 06:42] LABS: MAGNESIUM LEVEL 1.5 MG/DL (1.8-2.4)
[2022-08-11 06:52] LABS: ALBUMIN 1.5 G/DL (3.2-5.2); ALKALINE PHOSPHATASE 92 U/L (46-116); ALT/SGPT < 9 U/L (7.0-40); AST/SGOT 20 U/L (<34); BILIRUBIN,TOTAL 0.2 MG/DL (0.3-1.2); BLOOD UREA NITROGEN 12 MG/DL (9-23); CALCIUM LEVEL 7.4 MG/DL (8.3-10.6); CARBON DIOXIDE LEVEL 25 MMOL/L (20-31); CHLORIDE LEVEL 102 MMOL/L (98-107); CREATININE FOR GFR 0.73 MG/DL (0.70-1.30); GLOMERULAR FILTRATION RATE > 60.0 (>42); GLUCOSE, FASTING 118 MG/DL (74-106); POTASSIUM SERUM 3.6 MMOL/L (3.5-5.1); SODIUM LEVEL 140 MMOL/L (136-145); TOTAL PROTEIN 4.5 G/DL (5.7-8.2)
[2022-08-11] MEDS: ONDANSETRON 4MG 2ML VIAL IV PRN ×3 (09:21→20:56)
[2022-08-11] MEDS: PANTOPRAZOLE 40MG VIAL IV SCH (09:21)
[2022-08-11] MEDS: MAGNESIUM OXIDE 400MG TAB (MAG-OX) PO SCH ×2 (09:23→20:56)
[2022-08-11] MEDS: MIRALAX *UNIT DOSE* 17GM PACKET PO SCH ×2 (09:23→20:56)
[2022-08-11] MEDS: MIDODRINE 5 MG TAB PO SCH ×3 (09:23→16:20)
[2022-08-11] MEDS: MORPHINE 4 MG/ML 1ML VIAL IV PRN ×3 (09:23→20:57)
[2022-08-11] MEDS: DOCUSATE SODIUM 100MG CAPSULE PO SCH ×2 (09:23→20:56)
[2022-08-11] MEDS: D5W/0.45% SODIUM CHLORIDE 1,000 ML IV SCH ×2 (09:24→23:49)
[2022-08-11] MEDS ORDERED: FLEET ENEMA PR PRN (11:40)
[2022-08-11] MEDS ORDERED: BISACODYL ENEMA 10MG/30ML PR ONE (13:00)
[2022-08-11 13:39] VITALS: BP 116/75
[2022-08-11] MEDS: oxyCODONE 5MG TAB PO PRN ×2 (16:20→23:49)
[2022-08-11 20:30] VITALS: BP 131/84
[2022-08-11] MEDS: traZODone 50 MG TAB PO PRN (20:56)
[2022-08-12] MEDS: ONDANSETRON 4MG 2ML VIAL IV PRN ×3 (00:58→21:20)
[2022-08-12] MEDS: MORPHINE 4 MG/ML 1ML VIAL IV PRN ×3 (01:19→21:21)
[2022-08-12 05:48] LABS: HEMATOCRIT 38.6 % (42.0-52.0); HEMOGLOBIN 12.2 g/dl (13.5-17.5); MEAN CORPUSCULAR HEMOGLOBIN 26.9 pg (27.0-33.0); MEAN CORPUSCULAR HGB CONC 31.6 g/dl (32.0-36.5); MEAN CORPUSCULAR VOLUME 85.2 fl (80.0-96.0); PLATELET COUNT, AUTOMATED 380 10^3/uL (150-450); RED BLOOD COUNT 4.53 10^6/uL (4.30-6.10); WHITE BLOOD COUNT 11.5 10^3/uL (4.0-10.0)
[2022-08-12 06:11] VITALS: BP 98/60
[2022-08-12 06:42] LABS: ALBUMIN 1.4 G/DL (3.2-5.2); ALKALINE PHOSPHATASE 90 U/L (46-116); ALT/SGPT < 9 U/L (7.0-40); AST/SGOT 15 U/L (<34); BILIRUBIN,TOTAL 0.4 MG/DL (0.3-1.2); BLOOD UREA NITROGEN 13 MG/DL (9-23); CALCIUM LEVEL 7.3 MG/DL (8.3-10.6); CARBON DIOXIDE LEVEL 26 MMOL/L (20-31); CHLORIDE LEVEL 103 MMOL/L (98-107); CREATININE FOR GFR 0.71 MG/DL (0.70-1.30); GLOMERULAR FILTRATION RATE > 60.0 (>42); GLUCOSE, FASTING 122 MG/DL (74-106); POTASSIUM SERUM 3.5 MMOL/L (3.5-5.1); SODIUM LEVEL 138 MMOL/L (136-145); TOTAL PROTEIN 4.4 G/DL (5.7-8.2)
[2022-08-12] MEDS: MIDODRINE 5 MG TAB PO SCH ×3 (10:04→17:45)
[2022-08-12] MEDS: MAGNESIUM OXIDE 400MG TAB (MAG-OX) PO SCH ×2 (10:04→21:20)
[2022-08-12] MEDS: DOCUSATE SODIUM 100MG CAPSULE PO SCH ×2 (10:04→21:20)
[2022-08-12] MEDS: MIRALAX *UNIT DOSE* 17GM PACKET PO SCH ×2 (10:04→21:20)
[2022-08-12] MEDS: oxyCODONE 5MG TAB PO PRN ×3 (10:05→23:48)
[2022-08-12] MEDS: PANTOPRAZOLE 40MG VIAL IV SCH (10:05)
[2022-08-12 13:28] VITALS: BP 103/62
[2022-08-12 14:00] VITALS: BP 118/77
[2022-08-12] MEDS: D5W/0.45% SODIUM CHLORIDE 1,000 ML IV SCH (16:39)
[2022-08-12 20:30] VITALS: BP 113/74
[2022-08-12] MEDS: traZODone 50 MG TAB PO PRN (21:20)
[2022-08-13] MEDS ORDERED: CALCIUM CARBONATE 500 MG CHEW U/D PO ONE
[2022-08-13] MEDS ORDERED: PROMETHAZINE 25MG/ML 1ML VIAL IV ONE (01:00)
[2022-08-13] MEDS: ONDANSETRON 4MG 2ML VIAL IV PRN ×4 (01:11→20:13)
[2022-08-13 01:20] VITALS: BP 115/76
[2022-08-13] MEDS: MORPHINE 4 MG/ML 1ML VIAL IV PRN ×4 (01:43→20:14)
[2022-08-13] MEDS ORDERED: BISACODYL 10MG SUPP PR PRN (01:55)
[2022-08-13 04:40] VITALS: BP 120/76
[2022-08-13] MEDS: CALCIUM CARBONATE 500 MG CHEW U/D PO PRN ×3 (05:51→22:37)
[2022-08-13 06:25] LABS: HEMATOCRIT 37.9 % (42.0-52.0); HEMOGLOBIN 11.9 g/dl (13.5-17.5); MEAN CORPUSCULAR HEMOGLOBIN 26.9 pg (27.0-33.0); MEAN CORPUSCULAR HGB CONC 31.4 g/dl (32.0-36.5); MEAN CORPUSCULAR VOLUME 85.6 fl (80.0-96.0); PLATELET COUNT, AUTOMATED 398 10^3/uL (150-450); RED BLOOD COUNT 4.43 10^6/uL (4.30-6.10); WHITE BLOOD COUNT 9.8 10^3/uL (4.0-10.0)
[2022-08-13 06:51] LABS: ALBUMIN 1.6 G/DL (3.2-5.2); ALKALINE PHOSPHATASE 138 U/L (46-116); ALT/SGPT < 9 U/L (7.0-40); AST/SGOT 15 U/L (<34); BILIRUBIN,TOTAL 0.3 MG/DL (0.3-1.2); BLOOD UREA NITROGEN 13 MG/DL (9-23); CALCIUM LEVEL 7.6 MG/DL (8.3-10.6); CARBON DIOXIDE LEVEL 26 MMOL/L (20-31); CHLORIDE LEVEL 102 MMOL/L (98-107); CREATININE FOR GFR 0.75 MG/DL (0.70-1.30); GLOMERULAR FILTRATION RATE > 60.0 (>42); GLUCOSE, FASTING 101 MG/DL (74-106); POTASSIUM SERUM 3.7 MMOL/L (3.5-5.1); SODIUM LEVEL 139 MMOL/L (136-145); TOTAL PROTEIN 4.5 G/DL (5.7-8.2)
[2022-08-13] MEDS: PANTOPRAZOLE 40MG VIAL IV SCH (08:54)
[2022-08-13] MEDS: MIDODRINE 5 MG TAB PO SCH ×3 (08:55→18:56)
[2022-08-13] MEDS: MIRALAX *UNIT DOSE* 17GM PACKET PO SCH ×2 (08:55→20:13)
[2022-08-13] MEDS: DOCUSATE SODIUM 100MG CAPSULE PO SCH ×2 (08:55→20:12)
[2022-08-13] MEDS: MAGNESIUM OXIDE 400MG TAB (MAG-OX) PO SCH ×2 (08:55→20:13)
[2022-08-13] MEDS: oxyCODONE 5MG TAB PO PRN ×2 (08:56→18:57)
[2022-08-13] MEDS: IPRATROPIUM 0.5MG/ALBUTEROL 2.5MG INH SOL UD 3ML (DUONEB) NEB PRN ×2 (09:17→18:40)
[2022-08-13 13:23] VITALS: BP 116/74
[2022-08-13] MEDS ORDERED: FUROSEMIDE 20MG/2ML VIAL IV ONE (18:35)
[2022-08-13 20:46] VITALS: BP 117/76
[2022-08-14] MEDS: traZODone 50 MG TAB PO PRN (00:24)
[2022-08-14] MEDS: ONDANSETRON 4MG 2ML VIAL IV PRN ×3 (00:24→16:46)
[2022-08-14] MEDS: MORPHINE 4 MG/ML 1ML VIAL IV PRN ×4 (00:24→16:46)
[2022-08-14 06:00] VITALS: BP 121/75
[2022-08-14 06:21] LABS: HEMATOCRIT 38.8 % (42.0-52.0); MEAN CORPUSCULAR HEMOGLOBIN 26.7 pg (27.0-33.0); MEAN CORPUSCULAR HGB CONC 30.9 g/dl (32.0-36.5); MEAN CORPUSCULAR VOLUME 86.2 fl (80.0-96.0); PLATELET COUNT, AUTOMATED 411 10^3/uL (150-450); WHITE BLOOD COUNT 9.1 10^3/uL (4.0-10.0)
[2022-08-14 06:53] LABS: ALBUMIN 1.7 G/DL (3.2-5.2); ALKALINE PHOSPHATASE 145 U/L (46-116); ALT/SGPT < 9 U/L (7.0-40); AST/SGOT 15 U/L (<34); BILIRUBIN,TOTAL 0.3 MG/DL (0.3-1.2); BLOOD UREA NITROGEN 13 MG/DL (9-23); CALCIUM LEVEL 7.9 MG/DL (8.3-10.6); CARBON DIOXIDE LEVEL 28 MMOL/L (20-31); CHLORIDE LEVEL 102 MMOL/L (98-107); CREATININE FOR GFR 0.75 MG/DL (0.70-1.30); GLOMERULAR FILTRATION RATE > 60.0 (>42); GLUCOSE, FASTING 103 MG/DL (74-106); POTASSIUM SERUM 3.5 MMOL/L (3.5-5.1); SODIUM LEVEL 141 MMOL/L (136-145); TOTAL PROTEIN 4.7 G/DL (5.7-8.2)
[2022-08-14] MEDS: MAGNESIUM OXIDE 400MG TAB (MAG-OX) PO SCH ×2 (07:56→20:04)
[2022-08-14] MEDS: MIRALAX *UNIT DOSE* 17GM PACKET PO SCH ×2 (07:59→20:03)
[2022-08-14] MEDS: MIDODRINE 5 MG TAB PO SCH ×3 (07:59→16:45)
[2022-08-14] MEDS: DOCUSATE SODIUM 100MG CAPSULE PO SCH ×2 (07:59→20:03)
[2022-08-14] MEDS: PANTOPRAZOLE 40MG VIAL IV SCH (07:59)
[2022-08-14] MEDS: oxyCODONE 5MG TAB PO PRN ×2 (11:15→20:09)
[2022-08-14] MEDS: CALCIUM CARBONATE 500 MG CHEW U/D PO PRN (12:35)
[2022-08-14] MEDS ORDERED: POLYVINYL ALCOHOL OPHTH SOLN 15ML (LIQUITEARS) OU PRN (13:55)
[2022-08-14 14:00] VITALS: BP 121/76
[2022-08-14 20:29] VITALS: BP 120/76
[2022-08-15] MEDS: ONDANSETRON 4MG 2ML VIAL IV PRN ×3 (03:06→12:59)
[2022-08-15] MEDS: MORPHINE 4 MG/ML 1ML VIAL IV PRN ×3 (03:07→13:00)
[2022-08-15] MEDS: CALCIUM CARBONATE 500 MG CHEW U/D PO PRN (04:36)
[2022-08-15 06:12] LABS: HEMOGLOBIN 11.5 g/dl (13.5-17.5); MEAN CORPUSCULAR HEMOGLOBIN 26.9 pg (27.0-33.0); MEAN CORPUSCULAR HGB CONC 31.1 g/dl (32.0-36.5); MEAN CORPUSCULAR VOLUME 86.7 fl (80.0-96.0); PLATELET COUNT, AUTOMATED 374 10^3/uL (150-450); RED BLOOD COUNT 4.27 10^6/uL (4.30-6.10); WHITE BLOOD COUNT 10.5 10^3/uL (4.0-10.0)
[2022-08-15 06:51] LABS: ALBUMIN 1.6 G/DL (3.2-5.2); ALKALINE PHOSPHATASE 151 U/L (46-116); ALT/SGPT < 9 U/L (7.0-40); AST/SGOT 18 U/L (<34); BILIRUBIN,TOTAL 0.3 MG/DL (0.3-1.2); BLOOD UREA NITROGEN 14 MG/DL (9-23); CALCIUM LEVEL 7.7 MG/DL (8.3-10.6); CARBON DIOXIDE LEVEL 31 MMOL/L (20-31); CHLORIDE LEVEL 100 MMOL/L (98-107); CREATININE FOR GFR 0.69 MG/DL (0.70-1.30); GLOMERULAR FILTRATION RATE > 60.0 (>42); GLUCOSE, FASTING 124 MG/DL (74-106); POTASSIUM SERUM 3.8 MMOL/L (3.5-5.1); SODIUM LEVEL 139 MMOL/L (136-145); TOTAL PROTEIN 4.7 G/DL (5.7-8.2)
[2022-08-15] MEDS: MIDODRINE 5 MG TAB PO SCH ×4 (08:46→18:22)
[2022-08-15] MEDS: MIRALAX *UNIT DOSE* 17GM PACKET PO SCH ×2 (08:46→21:00)
[2022-08-15] MEDS: MAGNESIUM OXIDE 400MG TAB (MAG-OX) PO SCH ×2 (08:46→21:07)
[2022-08-15] MEDS: DOCUSATE SODIUM 100MG CAPSULE PO SCH ×2 (08:46→21:00)
[2022-08-15] MEDS: PANTOPRAZOLE 40MG VIAL IV SCH (08:47)
[2022-08-15] MEDS: guaiFENesin ER 600 MG TAB PO SCH ×2 (11:03→21:06)
[2022-08-15] MEDS: oxyCODONE 5MG TAB PO PRN ×2 (11:07→21:07)
[2022-08-15 14:06] LABS: APPEARANCE, BODY FLUID HAZY (CLEAR); PERITONEAL FL COLOR YELLOW (COLORLESS)
[2022-08-15 14:33] LABS: SOURCE, BODY FLUID PERITONEAL
[2022-08-15] MEDS ORDERED: MIDO5TA PO (18:00)
[2022-08-15] MEDS ORDERED: MIRA1POW3 PO (18:00)
[2022-08-15] MEDS ORDERED: COLA100C5 PO (18:00)
[2022-08-15] MEDS ORDERED: MUCI600T31 PO (18:00)
[2022-08-15 18:25] VITALS: BP 118/74
[2022-08-16] MEDS: MORPHINE 4 MG/ML 1ML VIAL IV PRN (00:16)
[2022-08-16] MEDS: ONDANSETRON 4MG 2ML VIAL IV PRN (00:16)
[2022-08-16 00:26] VITALS: BP 119/74
[2022-08-16] MEDS ORDERED: LevoFLOXacin 750 MG TABLET PO SCH (06:00)
[2022-08-16 06:08] VITALS: BP 116/74
[2022-08-16] MEDS ORDERED: OXYC-1 PO (07:46)
[2022-08-16] MEDS ORDERED: LEVALBUTEROL 1.25MG 0.5ML CONCENTRATE NEB NEB ONE (07:50)
[2022-08-16] MEDS: guaiFENesin ER 600 MG TAB PO SCH (08:13)
[2022-08-16] MEDS: DOCUSATE SODIUM 100MG CAPSULE PO SCH (08:14)
[2022-08-16] MEDS: MIRALAX *UNIT DOSE* 17GM PACKET PO SCH (08:14)
[2022-08-16] MEDS: MIDODRINE 5 MG TAB PO SCH ×2 (08:14→11:52)
[2022-08-16] MEDS: MAGNESIUM OXIDE 400MG TAB (MAG-OX) PO SCH (08:14)
[2022-08-16 08:41] LABS: BASO # 0.1 10^3/uL (0.0-0.2); BASO % 0.4 % (0.0-1.0); EOS # 0.3 10^3/uL (0.0-0.5); EOS % 2.1 % (0.0-3.0); HEMATOCRIT 41.3 % (42.0-52.0); HEMOGLOBIN 12.6 g/dl (13.5-17.5); LYMPH # 1.5 10^3/uL (1.5-5.0); LYMPH % 12.6 % (24.0-44.0); MEAN CORPUSCULAR HEMOGLOBIN 26.5 pg (27.0-33.0); MEAN CORPUSCULAR HGB CONC 30.5 g/dl (32.0-36.5); MEAN CORPUSCULAR VOLUME 86.8 fl (80.0-96.0); MONO % 14.3 % (2.0-8.0); NEUTROPHILS # 8.4 10^3/uL (1.5-8.5); NEUTROPHILS % 69.5 % (36.0-66.0); PLATELET COUNT, AUTOMATED 393 10^3/uL (150-450); RED BLOOD COUNT 4.76 10^6/uL (4.30-6.10); WHITE BLOOD COUNT 12.2 10^3/uL (4.0-10.0)
[2022-08-16] MEDS ORDERED: PANTOPRAZOLE 40MG TAB (PROTONIX) PO SCH (09:00)
[2022-08-16 09:04] LABS: ALBUMIN 1.6 G/DL (3.2-5.2); ALKALINE PHOSPHATASE 171 U/L (46-116); ALT/SGPT < 9 U/L (7.0-40); AST/SGOT 21 U/L (<34); BILIRUBIN,TOTAL 0.4 MG/DL (0.3-1.2); BLOOD UREA NITROGEN 12 MG/DL (9-23); CARBON DIOXIDE LEVEL 31 MMOL/L (20-31); CHLORIDE LEVEL 100 MMOL/L (98-107); CREATININE FOR GFR 0.62 MG/DL (0.70-1.30); GLOMERULAR FILTRATION RATE > 60.0 (>42); GLUCOSE, FASTING 106 MG/DL (74-106); POTASSIUM SERUM 3.6 MMOL/L (3.5-5.1); SODIUM LEVEL 138 MMOL/L (136-145); TOTAL PROTEIN 4.8 G/DL (5.7-8.2)
[2022-08-16 09:07] LABS: MONO # 1.7 10^3/uL (0.0-0.8)
[2022-08-16] MEDS ORDERED: LEVO1TAB40 PO (11:31)
[2022-08-16] MEDS ORDERED: BACI1CAP PO (11:31)
[2022-08-16] MEDS ORDERED: MIRA1POW3 PO (11:31)
[2022-08-16] MEDS ORDERED: COLA100C5 PO (11:31)
[2022-08-16] MEDS ORDERED: FUROSEMIDE 40MG/4ML VIAL IV ONE (12:00)
== END 2022-08-16 14:44 | disposition home health service (06) | DRG 388 ==
LOC: M ED 16:13 → M ED INP 22:50 → ENRESERV 08-02 15:07 → M MSPAV 08-02 15:52
PROVIDERS: ADMIT Internal Medicine; ATTEND General Practice
PROC: 0W9G3ZX Drainage of Peritoneal Cavity, Percutaneous Approach, Diagnostic (ICD-10-PCS; principal; 2022-08-15 11:30)
DX: K56.51 Intestinal adhesions [bands], with partial obstruction (principal); J18.9 Pneumonia, unspecified organism; R18.0 Malignant ascites; J90 Pleural effusion, not elsewhere classified; C18.9 Malignant neoplasm of colon, unspecified; C79.89 Secondary malignant neoplasm of other specified sites; C78.7 Secondary malignant neoplasm of liver and intrahepatic bile duct; C78.00 Secondary malignant neoplasm of unspecified lung; K57.90 Diverticulosis of intestine, part unspecified, without perforation or abscess without bleeding; Z66 Do not resuscitate; E11.9 Type 2 diabetes mellitus without complications; E11.42 Type 2 diabetes mellitus with diabetic polyneuropathy; N40.0 Benign prostatic hyperplasia without lower urinary tract symptoms; R09.02 Hypoxemia; D63.8 Anemia in other chronic diseases classified elsewhere; K21.9 Gastro-esophageal reflux disease without esophagitis; E78.5 Hyperlipidemia, unspecified; E87.6 Hypokalemia; E83.42 Hypomagnesemia; G47.00 Insomnia, unspecified; Z92.3 Personal history of irradiation; Z79.899 Other long term (current) drug therapy; Z90.49 Acquired absence of other specified parts of digestive tract; Z96.643 Presence of artificial hip joint, bilateral; Z92.21 Personal history of antineoplastic chemotherapy

== ENCOUNTER → 2022-08-30 | Outpatient (CLI) | payer OTHER ==
[~2022-08-30] MED LIST changes: +ACET650T3 PO; +BACI1CAP PO; +COLA100C5 PO; +LEVO1TAB40 PO; +MIDO5TA PO; +MIRA1POW3 PO; +MUCI600T31 PO; +OXYC-1 PO
== END ==
LOC: M EKG 17:39
PROVIDERS: ATTEND Nurse Practitioner
DX: C18.9 Malignant neoplasm of colon, unspecified (principal)

== ENCOUNTER → 2022-09-01 | Outpatient (CLI) | payer OTHER ==
[~2022-09-01] MED LIST changes: +MAGN400T2 PO; +POLY17PO18 PO; +TUMS500C PO; +XARE15TA PO; +XARE20TA PO
== END ==
LOC: M ONCR 10:55
PROVIDERS: ATTEND General Practice
DX: C78.6 Secondary malignant neoplasm of retroperitoneum and peritoneum (principal)

== ENCOUNTER 2022-09-10 13:23 | Inpatient (IN) | payer OTHER ==
[~2022-09-10] VITALS: Ht 182.9 cm; Wt 92.9 kg
[~2022-09-10 13:23] MED LIST changes: -MAGN400T2 PO; -POLY17PO18 PO; -TUMS500C PO; -XARE15TA PO; -XARE20TA PO
[2022-09-10] MEDS ORDERED: SODIUM CHLORIDE 0.9% INJ 10 ML SYR IV PRN (13:45)
[2022-09-10 14:36] LABS: BASO # 0.1 10^3/uL (0.0-0.2); BASO % 0.6 % (0.0-1.0); EOS # 0.1 10^3/uL (0.0-0.5); EOS % 1.5 % (0.0-3.0); HEMATOCRIT 38.5 % (42.0-52.0); HEMOGLOBIN 12.1 g/dl (13.5-17.5); LYMPH # 0.7 10^3/uL (1.5-5.0); LYMPH % 7.5 % (24.0-44.0); MEAN CORPUSCULAR HEMOGLOBIN 27.6 pg (27.0-33.0); MEAN CORPUSCULAR HGB CONC 31.4 g/dl (32.0-36.5); MEAN CORPUSCULAR VOLUME 87.7 fl (80.0-96.0); NEUTROPHILS # 6.8 10^3/uL (1.5-8.5); NEUTROPHILS % 78.7 % (36.0-66.0); PLATELET COUNT, AUTOMATED 392 10^3/uL (150-450); RED BLOOD COUNT 4.39 10^6/uL (4.30-6.10); WHITE BLOOD COUNT 8.6 10^3/uL (4.0-10.0)
[2022-09-10 14:46] LABS: INR 1.02; PROTHROMBIN TIME 13.6 SECONDS (12.5-14.5)
[2022-09-10 15:01] LABS: BILIRUBIN,DIRECT 0.1 MG/DL (<0.4)
[2022-09-10 15:02] LABS: ALBUMIN 1.6 G/DL (3.2-5.2); ALKALINE PHOSPHATASE 178 U/L (46-116); ALT/SGPT < 9 U/L (7.0-40); AST/SGOT 19 U/L (<34); BILIRUBIN,TOTAL 0.3 MG/DL (0.3-1.2); BLOOD UREA NITROGEN 14 MG/DL (9-23); CALCIUM LEVEL 7.6 MG/DL (8.3-10.6); CARBON DIOXIDE LEVEL 29 MMOL/L (20-31); CHLORIDE LEVEL 101 MMOL/L (98-107); CREATININE FOR GFR 0.59 MG/DL (0.70-1.30); GLOMERULAR FILTRATION RATE > 60.0 (>42); GLUCOSE, FASTING 109 MG/DL (74-106); POTASSIUM SERUM 4.7 MMOL/L (3.5-5.1); SODIUM LEVEL 137 MMOL/L (136-145); TOTAL PROTEIN 5.3 G/DL (5.7-8.2)
[2022-09-10] MEDS ORDERED: ISOVUE-370 76% 100ML VIAL As Ordered ONE (15:22)
[2022-09-10] MEDS ORDERED: ACETAMINOPHEN TAB 650MG DOSE (2X325MG) PO PRN (17:10)
[2022-09-10 17:43] LABS: MAGNESIUM LEVEL 1.4 MG/DL (1.8-2.4)
[2022-09-10 17:45] LABS: PHOSPHORUS LEVEL 3.8 MG/DL (2.4-5.1)
[2022-09-10] MEDS ORDERED: POLY17PO18 PO (17:58)
[2022-09-10] MEDS ORDERED: FINA5TAB2 PO (18:00)
[2022-09-10] MEDS ORDERED: DICL1GEL3 TOP (18:00)
[2022-09-10] MEDS ORDERED: TUMS500C PO (18:01)
[2022-09-10] MEDS ORDERED: HOME MED LIST COMPLETE! XX SCH (18:05)
[2022-09-10] MEDS ORDERED: PROCHLORPERAZINE 5MG TAB PO PRN (18:20)
[2022-09-10] MEDS ORDERED: LEVALBUTEROL 1.25MG 0.5ML CONCENTRATE NEB NEB PRN (18:20)
[2022-09-10] MEDS ORDERED: GLUCAGON INJ 1MG VIAL SC PRN (18:35)
[2022-09-10] MEDS ORDERED: DEXTROSE 50% 50ML SYRINGE IV PRN (18:35)
[2022-09-10] MEDS ORDERED: GLUCOSE 4GM CHEW TABLET PO PRN (18:35)
[2022-09-10] MEDS ORDERED: MAG SULF 1GM/100ML (MAG RUN) 1 GM in IV 1 EA IV ONE (19:00)
[2022-09-10] MEDS ORDERED: ENOXAPARIN 100MG/1ML SYRINGE (J1650 PER 10MG) SC ONE (19:00)
[2022-09-10] MEDS: LEVALBUTEROL 1.25MG 0.5ML CONCENTRATE NEB NEB SCH (19:52)
[2022-09-10] MEDS: cefTRIAXone SOD 1 GM in D5W MINI-BAG PLUS 50 ML IV SCH (20:18)
[2022-09-10] MEDS: MIRALAX *UNIT DOSE* 17GM PACKET PO SCH (20:19)
[2022-09-10] MEDS: ROSUVASTATIN 10 MG TAB (CRESTOR) PO SCH (20:25)
[2022-09-10] MEDS: CALCIUM CARBONATE 500 MG CHEW U/D PO PRN (20:25)
[2022-09-10] MEDS: oxyCODONE 5MG TAB PO PRN (20:26)
[2022-09-10] MEDS: guaiFENesin ER 600 MG TAB PO SCH (20:26)
[2022-09-10] MEDS: MAGNESIUM OXIDE 400MG TAB (MAG-OX) PO SCH (20:26)
[2022-09-10] MEDS: INSULIN LISPRO (NovoLOG) PER UNIT SC SCH (20:27)
[2022-09-10] MEDS: ONDANSETRON 4MG TAB PO PRN (20:27)
[2022-09-10] MEDS: DOXYCYCLINE HYCLATE 100MG TABLET PO SCH (21:21)
[2022-09-11] MEDS: oxyCODONE 5MG TAB PO PRN ×3 (05:48→22:34)
[2022-09-11 06:14] LABS: HEMATOCRIT 37.9 % (42.0-52.0); HEMOGLOBIN 11.7 g/dl (13.5-17.5); MEAN CORPUSCULAR HEMOGLOBIN 27.6 pg (27.0-33.0); MEAN CORPUSCULAR HGB CONC 30.9 g/dl (32.0-36.5); MEAN CORPUSCULAR VOLUME 89.4 fl (80.0-96.0); PLATELET COUNT, AUTOMATED 429 10^3/uL (150-450); RED BLOOD COUNT 4.24 10^6/uL (4.30-6.10); WHITE BLOOD COUNT 7.4 10^3/uL (4.0-10.0)
[2022-09-11 06:40] LABS: MAGNESIUM LEVEL 1.4 MG/DL (1.8-2.4)
[2022-09-11 06:49] LABS: ALBUMIN 1.6 G/DL (3.2-5.2); ALKALINE PHOSPHATASE 162 U/L (46-116); ALT/SGPT < 9 U/L (7.0-40); AST/SGOT 16 U/L (<34); BILIRUBIN,TOTAL 0.3 MG/DL (0.3-1.2); BLOOD UREA NITROGEN 13 MG/DL (9-23); CALCIUM LEVEL 7.6 MG/DL (8.3-10.6); CARBON DIOXIDE LEVEL 33 MMOL/L (20-31); CHLORIDE LEVEL 101 MMOL/L (98-107); CREATININE FOR GFR 0.57 MG/DL (0.70-1.30); GLOMERULAR FILTRATION RATE > 60.0 (>42); GLUCOSE, FASTING 86 MG/DL (74-106); POTASSIUM SERUM 4.3 MMOL/L (3.5-5.1); SODIUM LEVEL 139 MMOL/L (136-145); TOTAL PROTEIN 4.9 G/DL (5.7-8.2)
[2022-09-11] MEDS: INSULIN LISPRO (NovoLOG) PER UNIT SC SCH ×4 (07:30→22:32)
[2022-09-11] MEDS: LEVALBUTEROL 1.25MG 0.5ML CONCENTRATE NEB NEB SCH ×4 (08:11→20:02)
[2022-09-11] MEDS: MIRALAX *UNIT DOSE* 17GM PACKET PO SCH ×2 (09:00→22:31)
[2022-09-11] MEDS: FLUoxetine 20MG CAP PO SCH (10:02)
[2022-09-11] MEDS: MAGNESIUM OXIDE 400MG TAB (MAG-OX) PO SCH ×2 (10:02→22:31)
[2022-09-11] MEDS: SOLIFENACIN 5 MG TAB PO SCH (10:02)
[2022-09-11] MEDS: MULTIVITAMINS/MINERALS THERAP 1 TAB PO SCH (10:03)
[2022-09-11] MEDS: FINASTERIDE 5MG TAB PO SCH (10:03)
[2022-09-11] MEDS: DOXYCYCLINE HYCLATE 100MG TABLET PO SCH ×2 (10:03→22:32)
[2022-09-11] MEDS: guaiFENesin ER 600 MG TAB PO SCH ×2 (10:03→22:32)
[2022-09-11] MEDS ORDERED: MAG SULF 1GM/100ML (MAG RUN) 1 GM in IV 1 EA IV ONE (11:00)
[2022-09-11] MEDS ORDERED: LIDOCAINE 1% MDV 20ML VIAL As Ordered ONE (11:21)
[2022-09-11 13:51] VITALS: BP 118/80
[2022-09-11 22:00] VITALS: BP 118/74
[2022-09-11] MEDS: ROSUVASTATIN 10 MG TAB (CRESTOR) PO SCH (22:31)
[2022-09-11] MEDS: cefTRIAXone SOD 1 GM in D5W MINI-BAG PLUS 50 ML IV SCH (22:31)
[2022-09-11] MEDS: ENOXAPARIN 100MG/1ML SYRINGE (J1650 PER 10MG) SC SCH (22:32)
[2022-09-11] MEDS: ONDANSETRON 4MG TAB PO PRN (22:33)
[2022-09-12] MEDS ORDERED: SODIUM CHLORIDE 0.9% INJ 10 ML SYR IV PRN (00:30)
[2022-09-12] MEDS: DICLOFENAC EPOLAMINE 1.3% PATCH TOP SCH ×3 (01:32→21:21)
[2022-09-12] MEDS: NYSTATIN 100,000 UNITS/GM TOPICAL PWD 15GM TOP SCH ×3 (01:32→21:21)
[2022-09-12] MEDS ORDERED: MORPHINE 2 MG/ML 1ML VIAL IV PRN (03:05)
[2022-09-12 06:00] VITALS: BP 114/76
[2022-09-12 06:12] LABS: HEMATOCRIT 36.9 % (42.0-52.0); HEMOGLOBIN 11.5 g/dl (13.5-17.5); MEAN CORPUSCULAR HEMOGLOBIN 27.6 pg (27.0-33.0); MEAN CORPUSCULAR HGB CONC 31.2 g/dl (32.0-36.5); MEAN CORPUSCULAR VOLUME 88.7 fl (80.0-96.0); PLATELET COUNT, AUTOMATED 421 10^3/uL (150-450); RED BLOOD COUNT 4.16 10^6/uL (4.30-6.10); WHITE BLOOD COUNT 6.8 10^3/uL (4.0-10.0)
[2022-09-12 06:38] LABS: MAGNESIUM LEVEL 1.6 MG/DL (1.8-2.4)
[2022-09-12 06:40] LABS: ALBUMIN 1.4 G/DL (3.2-5.2); ALKALINE PHOSPHATASE 149 U/L (46-116); ALT/SGPT < 9 U/L (7.0-40); AST/SGOT 17 U/L (<34); BILIRUBIN,TOTAL 0.2 MG/DL (0.3-1.2); BLOOD UREA NITROGEN 10 MG/DL (9-23); CALCIUM LEVEL 7.3 MG/DL (8.3-10.6); CARBON DIOXIDE LEVEL 32 MMOL/L (20-31); CHLORIDE LEVEL 99 MMOL/L (98-107); CREATININE FOR GFR 0.54 MG/DL (0.70-1.30); GLOMERULAR FILTRATION RATE > 60.0 (>42); GLUCOSE, FASTING 98 MG/DL (74-106); POTASSIUM SERUM 4.8 MMOL/L (3.5-5.1); SODIUM LEVEL 136 MMOL/L (136-145); TOTAL PROTEIN 4.7 G/DL (5.7-8.2)
[2022-09-12] MEDS: LEVALBUTEROL 1.25MG 0.5ML CONCENTRATE NEB NEB SCH ×4 (07:17→20:00)
[2022-09-12] MEDS: INSULIN LISPRO (NovoLOG) PER UNIT SC SCH ×4 (07:30→21:00)
[2022-09-12] MEDS: MIRALAX *UNIT DOSE* 17GM PACKET PO SCH ×2 (08:38→21:00)
[2022-09-12] MEDS: ENOXAPARIN 100MG/1ML SYRINGE (J1650 PER 10MG) SC SCH (08:38)
[2022-09-12] MEDS: SODIUM CHLORIDE 0.9% INJ 10 ML SYR IV SCH (08:38)
[2022-09-12] MEDS: ONDANSETRON 4MG TAB PO PRN (08:39)
[2022-09-12] MEDS: SOLIFENACIN 5 MG TAB PO SCH (08:39)
[2022-09-12] MEDS: MULTIVITAMINS/MINERALS THERAP 1 TAB PO SCH (08:39)
[2022-09-12] MEDS: MAGNESIUM OXIDE 400MG TAB (MAG-OX) PO SCH ×2 (08:40→21:15)
[2022-09-12] MEDS: FLUoxetine 20MG CAP PO SCH (08:40)
[2022-09-12] MEDS: guaiFENesin ER 600 MG TAB PO SCH ×2 (08:40→21:15)
[2022-09-12] MEDS: FUROSEMIDE 20 MG TAB PO SCH (08:40)
[2022-09-12] MEDS: FINASTERIDE 5MG TAB PO SCH (08:41)
[2022-09-12] MEDS: DOXYCYCLINE HYCLATE 100MG TABLET PO SCH (08:41)
[2022-09-12] MEDS: oxyCODONE 5MG TAB PO PRN ×3 (08:41→21:16)
[2022-09-12] MEDS: MAG SULF 1GM/100ML (MAG RUN) 1 GM in IV 1 EA IV SCH ×2 (12:17→13:26)
[2022-09-12] MEDS: RIVAROXABAN 15MG TAB (XARELTO) PO SCH (18:38)
[2022-09-12 20:00] VITALS: BP 112/75
[2022-09-12] MEDS ORDERED: APIXABAN 5 MG TAB (ELIQUIS) PO SCH (21:00)
[2022-09-12] MEDS: ROSUVASTATIN 10 MG TAB (CRESTOR) PO SCH (21:16)
[2022-09-13] MEDS: oxyCODONE 5MG TAB PO PRN ×2 (05:54→20:50)
[2022-09-13 06:00] VITALS: BP 113/88
[2022-09-13 06:13] LABS: BASO % 0.6 % (0.0-1.0); EOS # 0.2 10^3/uL (0.0-0.5); EOS % 2.8 % (0.0-3.0); HEMATOCRIT 39.5 % (42.0-52.0); HEMOGLOBIN 12.1 g/dl (13.5-17.5); LYMPH # 0.8 10^3/uL (1.5-5.0); LYMPH % 11.7 % (24.0-44.0); MEAN CORPUSCULAR HEMOGLOBIN 27.3 pg (27.0-33.0); MEAN CORPUSCULAR HGB CONC 30.6 g/dl (32.0-36.5); MEAN CORPUSCULAR VOLUME 89.2 fl (80.0-96.0); MONO # 1.1 10^3/uL (0.0-0.8); MONO % 14.9 % (2.0-8.0); NEUTROPHILS # 4.9 10^3/uL (1.5-8.5); NEUTROPHILS % 69.4 % (36.0-66.0); PLATELET COUNT, AUTOMATED 481 10^3/uL (150-450); RED BLOOD COUNT 4.43 10^6/uL (4.30-6.10); WHITE BLOOD COUNT 7.1 10^3/uL (4.0-10.0)
[2022-09-13 06:30] LABS: BLOOD UREA NITROGEN 12 MG/DL (9-23); CALCIUM LEVEL 7.7 MG/DL (8.3-10.6); CARBON DIOXIDE LEVEL 31 MMOL/L (20-31); CHLORIDE LEVEL 101 MMOL/L (98-107); CREATININE FOR GFR 0.63 MG/DL (0.70-1.30); GLOMERULAR FILTRATION RATE > 60.0 (>42); GLUCOSE, FASTING 92 MG/DL (74-106); POTASSIUM SERUM 5.3 MMOL/L (3.5-5.1); SODIUM LEVEL 137 MMOL/L (136-145)
[2022-09-13 07:29] LABS: MAGNESIUM LEVEL 1.7 MG/DL (1.8-2.4)
[2022-09-13] MEDS: INSULIN LISPRO (NovoLOG) PER UNIT SC SCH ×4 (07:30→20:50)
[2022-09-13] MEDS: LEVALBUTEROL 1.25MG 0.5ML CONCENTRATE NEB NEB SCH ×4 (07:35→20:00)
[2022-09-13] MEDS: MAGNESIUM OXIDE 400MG TAB (MAG-OX) PO SCH ×2 (08:24→20:49)
[2022-09-13] MEDS: RIVAROXABAN 15MG TAB (XARELTO) PO SCH ×2 (08:25→17:15)
[2022-09-13] MEDS: MULTIVITAMINS/MINERALS THERAP 1 TAB PO SCH (08:25)
[2022-09-13] MEDS: FINASTERIDE 5MG TAB PO SCH (08:25)
[2022-09-13] MEDS: MIRALAX *UNIT DOSE* 17GM PACKET PO SCH ×2 (08:25→20:50)
[2022-09-13] MEDS: guaiFENesin ER 600 MG TAB PO SCH ×2 (08:25→20:49)
[2022-09-13] MEDS: DICLOFENAC EPOLAMINE 1.3% PATCH TOP SCH ×2 (08:25→20:50)
[2022-09-13] MEDS: SOLIFENACIN 5 MG TAB PO SCH (08:25)
[2022-09-13] MEDS: FLUoxetine 20MG CAP PO SCH (08:25)
[2022-09-13] MEDS: NYSTATIN 100,000 UNITS/GM TOPICAL PWD 15GM TOP SCH ×2 (08:26→20:50)
[2022-09-13] MEDS ORDERED: PATIROMER SORBITEX CALCIUM 8.4 GM POWDER PACKET (VELTASSA) PO ONE ×2 (09:00→18:00)
[2022-09-13 12:11] LABS: BLOOD UREA NITROGEN 12 MG/DL (9-23); CALCIUM LEVEL 7.7 MG/DL (8.3-10.6); CARBON DIOXIDE LEVEL 32 MMOL/L (20-31); CHLORIDE LEVEL 101 MMOL/L (98-107); CREATININE FOR GFR 0.61 MG/DL (0.70-1.30); GLOMERULAR FILTRATION RATE > 60.0 (>42); GLUCOSE, FASTING 113 MG/DL (74-106); POTASSIUM SERUM 5.3 MMOL/L (3.5-5.1); SODIUM LEVEL 136 MMOL/L (136-145)
[2022-09-13] MEDS: SODIUM CHLORIDE 0.9% INJ 10 ML SYR IV SCH (16:18)
[2022-09-13] MEDS: ROSUVASTATIN 10 MG TAB (CRESTOR) PO SCH (20:49)
[2022-09-13] MEDS ORDERED: ANALGESIC BALM CRM 3OZ TOP PRN (20:50)
[2022-09-13 21:18] VITALS: BP 114/75
[2022-09-14] MEDS ORDERED: RAMELTEON 8 MG TAB (ROZEREM) PO PRN (00:20)
[2022-09-14 04:30] VITALS: BP 112/74
[2022-09-14 05:41] LABS: BASO # 0.1 10^3/uL (0.0-0.2); BASO % 0.7 % (0.0-1.0); EOS # 0.2 10^3/uL (0.0-0.5); EOS % 3.4 % (0.0-3.0); HEMATOCRIT 38.2 % (42.0-52.0); LYMPH % 13.3 % (24.0-44.0); MEAN CORPUSCULAR HEMOGLOBIN 27.9 pg (27.0-33.0); MEAN CORPUSCULAR HGB CONC 31.4 g/dl (32.0-36.5); MEAN CORPUSCULAR VOLUME 88.8 fl (80.0-96.0); MONO # 1.3 10^3/uL (0.0-0.8); MONO % 18.2 % (2.0-8.0); NEUTROPHILS # 4.6 10^3/uL (1.5-8.5); NEUTROPHILS % 63.6 % (36.0-66.0); PLATELET COUNT, AUTOMATED 486 10^3/uL (150-450); WHITE BLOOD COUNT 7.2 10^3/uL (4.0-10.0)
[2022-09-14] MEDS: oxyCODONE 5MG TAB PO PRN ×2 (05:44→11:59)
[2022-09-14 06:12] LABS: BLOOD UREA NITROGEN 11 MG/DL (9-23); CALCIUM LEVEL 7.9 MG/DL (8.3-10.6); CARBON DIOXIDE LEVEL 32 MMOL/L (20-31); CHLORIDE LEVEL 97 MMOL/L (98-107); CREATININE FOR GFR 0.55 MG/DL (0.70-1.30); GLOMERULAR FILTRATION RATE > 60.0 (>42); GLUCOSE, FASTING 105 MG/DL (74-106); POTASSIUM SERUM 4.9 MMOL/L (3.5-5.1); SODIUM LEVEL 133 MMOL/L (136-145)
[2022-09-14] MEDS: CALCIUM CARBONATE 500 MG CHEW U/D PO PRN (06:52)
[2022-09-14] MEDS: INSULIN LISPRO (NovoLOG) PER UNIT SC SCH ×2 (07:30→11:55)
[2022-09-14] MEDS: SODIUM CHLORIDE 0.9% INJ 10 ML SYR IV SCH (08:01)
[2022-09-14] MEDS: ONDANSETRON 4MG TAB PO PRN (08:07)
[2022-09-14] MEDS: FLUoxetine 20MG CAP PO SCH (08:48)
[2022-09-14] MEDS: SOLIFENACIN 5 MG TAB PO SCH (08:48)
[2022-09-14] MEDS: guaiFENesin ER 600 MG TAB PO SCH (08:48)
[2022-09-14] MEDS: RIVAROXABAN 15MG TAB (XARELTO) PO SCH (08:48)
[2022-09-14] MEDS: FINASTERIDE 5MG TAB PO SCH (08:48)
[2022-09-14] MEDS: MULTIVITAMINS/MINERALS THERAP 1 TAB PO SCH (08:48)
[2022-09-14] MEDS: MIRALAX *UNIT DOSE* 17GM PACKET PO SCH (08:49)
[2022-09-14] MEDS: FUROSEMIDE 20 MG TAB PO SCH (08:49)
[2022-09-14] MEDS: MAGNESIUM OXIDE 400MG TAB (MAG-OX) PO SCH (08:49)
[2022-09-14] MEDS: NYSTATIN 100,000 UNITS/GM TOPICAL PWD 15GM TOP SCH (08:50)
[2022-09-14] MEDS: DICLOFENAC EPOLAMINE 1.3% PATCH TOP SCH (09:03)
[2022-09-14] MEDS ORDERED: XARE20TA PO (11:55)
[2022-09-14] MEDS ORDERED: FURO20TA2 PO (11:55)
[2022-09-14] MEDS ORDERED: XARE15TA PO ×2 (11:55→11:57)
[2022-09-14] MEDS ORDERED: MAGN400T2 PO (11:55)
[2022-09-19] MEDS ORDERED: APIXABAN 5 MG TAB (ELIQUIS) PO SCH (21:00)
[2022-10-03] MEDS ORDERED: RIVAROXABAN 20MG TAB (XARELTO) PO SCH (18:00)
== END 2022-09-14 12:40 | DRG 175 ==
LOC: M ED 13:23 → M ED INP 17:08 → ENRESERV 09-11 12:18 → M MSPAV 09-11 13:52
PROVIDERS: ADMIT Internal Medicine; ATTEND Internal Medicine
PROC: 0W9G3ZZ Drainage of Peritoneal Cavity, Percutaneous Approach (ICD-10-PCS; principal; 2022-09-11 15:00)
DX: I26.93 Single subsegmental thrombotic pulmonary embolism without acute cor pulmonale (principal); J96.01 Acute respiratory failure with hypoxia; C18.9 Malignant neoplasm of colon, unspecified; C78.7 Secondary malignant neoplasm of liver and intrahepatic bile duct; C78.01 Secondary malignant neoplasm of right lung; C78.02 Secondary malignant neoplasm of left lung; R18.0 Malignant ascites; J98.11 Atelectasis; J90 Pleural effusion, not elsewhere classified; E22.2 Syndrome of inappropriate secretion of antidiuretic hormone; N40.0 Benign prostatic hyperplasia without lower urinary tract symptoms; Z66 Do not resuscitate; K21.9 Gastro-esophageal reflux disease without esophagitis; E78.5 Hyperlipidemia, unspecified; E11.9 Type 2 diabetes mellitus without complications; I10 Essential (primary) hypertension; E87.5 Hyperkalemia; G89.3 Neoplasm related pain (acute) (chronic); E83.42 Hypomagnesemia; G47.00 Insomnia, unspecified; F32.A Depression, unspecified; G62.2 Polyneuropathy due to other toxic agents; Z90.49 Acquired absence of other specified parts of digestive tract; Z96.651 Presence of right artificial knee joint; Z96.643 Presence of artificial hip joint, bilateral; Z92.3 Personal history of irradiation; Z79.899 Other long term (current) drug therapy; Z79.84 Long term (current) use of oral hypoglycemic drugs

== ENCOUNTER 2022-09-12 08:45 | Outpatient (RCR) | payer OTHER ==
[~2022-09-12 08:45] MED LIST changes: +POLY17PO18 PO; +TUMS500C PO
[2022-09-14] MEDS ORDERED: FURO20TA2 PO (11:55)
[2022-09-14] MEDS ORDERED: XARE20TA PO (11:55)
[2022-09-14] MEDS ORDERED: XARE15TA PO ×2 (11:55→11:57)
[2022-09-14] MEDS ORDERED: MAGN400T2 PO (11:55)
[2022-09-18] MEDS ORDERED: DULC10SU2 PR (10:37)
[2022-09-18] MEDS ORDERED: FLEEENE12 PR (10:42)
[2022-09-18] MEDS ORDERED: MILKSUS3 PO (10:42)
[2022-09-18] MEDS ORDERED: OLOP2.5D3 OP (10:42)
[2022-09-18] MEDS ORDERED: MIRA3350 PO (10:42)
== END 2022-09-26 ==
LOC: M ONCR 08:45
PROVIDERS: ATTEND General Practice
DX: C78.6 Secondary malignant neoplasm of retroperitoneum and peritoneum (principal)

== ENCOUNTER → 2022-09-19 | Outpatient (REF) | payer OTHER ==
[~2022-09-19] MED LIST changes: +DULC10SU2 PR; +FLEEENE12 PR; +MAGN400T2 PO; +MILKSUS3 PO; +MIRA3350 PO; +OLOP2.5D3 OP; +XARE15TA PO; +XARE20TA PO
[2022-09-19 07:05] LABS: MAGNESIUM LEVEL 1.8 MG/DL (1.8-2.4)
[2022-09-19 07:16] LABS: BLOOD UREA NITROGEN 12 MG/DL (9-23); CALCIUM LEVEL 7.9 MG/DL (8.3-10.6); CARBON DIOXIDE LEVEL 29 MMOL/L (20-31); CHLORIDE LEVEL 103 MMOL/L (98-107); GLOMERULAR FILTRATION RATE > 60.0 (>42); GLUCOSE, FASTING 91 MG/DL (74-106); POTASSIUM SERUM 4.6 MMOL/L (3.5-5.1); SODIUM LEVEL 138 MMOL/L (136-145)
== END ==
LOC: SKLAB4 08:10
PROVIDERS: ATTEND Internal Medicine
DX: C80.1 Malignant (primary) neoplasm, unspecified (principal)

== ENCOUNTER → 2022-09-22 | Outpatient (CLI) | payer MEDICARE, OTHER ==
[2022-09-22 14:50] VITALS: BP 106/62
== END ==
LOC: M IRPRO 13:58
PROVIDERS: ATTEND Internal Medicine Medical Oncology
DX: M25.48 Effusion, other site (principal)

== ENCOUNTER → 2022-10-05 | Outpatient (REF) | payer OTHER | LOC: SKLAB4 15:24 | PROVIDERS: ATTEND Internal Medicine | DX: M25.552 Pain in left hip (principal); W19.XXXA Unspecified fall, initial encounter; Z96.643 Presence of artificial hip joint, bilateral ==

== ENCOUNTER → 2022-10-06 | Outpatient (CLI) | payer MEDICARE, OTHER ==
[~2022-10-06] MED LIST changes: +LIDOCAINE 1% MDV 20ML VIAL As Ordered ONE
[2022-10-06 13:28] VITALS: BP 114/66
== END ==
LOC: M IRPRO 11:54
PROVIDERS: ATTEND Internal Medicine Medical Oncology
DX: R18.8 Other ascites (principal); N39.41 Urge incontinence

== ENCOUNTER 2022-10-09 13:15 | Outpatient (RCR) | payer MEDICARE, OTHER ==
[~2022-10-09 13:15] MED LIST changes: -LIDOCAINE 1% MDV 20ML VIAL As Ordered ONE
[2022-10-16] MEDS ORDERED: OXYC15TA66 PO ×2 (16:19)
[2022-10-16] MEDS ORDERED: OLOP5DRO9 OU (16:19)
[2022-10-16] MEDS ORDERED: FURO20TA2 PO (16:19)
[2022-10-16] MEDS ORDERED: CLOT1CRE56 TOP (16:19)
[2022-10-16] MEDS ORDERED: MAGN400T2 PO (16:19)
[2022-10-16] MEDS ORDERED: XARE20TA PO (16:19)
[2022-10-16] MEDS ORDERED: ONDA8TAB8 PO (16:19)
[2022-10-16] MEDS ORDERED: MIRA3350 PO (16:19)
[2022-10-16] MEDS ORDERED: ACET-683 PO (16:19)
[2022-10-16] MEDS ORDERED: BISA10SU PR (16:27)
[2022-10-16] MEDS ORDERED: MILKSUS3 PO (16:27)
[2022-10-16] MEDS ORDERED: PROC10TA5 PO (16:29)
[2022-10-16] MEDS ORDERED: OXYC-1 PO (17:15)
== END 2022-10-20 ==
LOC: M ONCR 13:15
PROVIDERS: ATTEND General Practice
DX: C78.6 Secondary malignant neoplasm of retroperitoneum and peritoneum (principal)

== ENCOUNTER 2022-10-16 12:09 | Inpatient (IN) | payer MEDICARE, OTHER ==
[~2022-10-16] VITALS: Ht 190.5 cm; Wt 85.6 kg
[2022-10-16 14:00] VITALS: BP 97/74
[2022-10-16 16:00] VITALS: BP 111/67
[2022-10-16] MEDS ORDERED: MIRA3350 PO (16:19)
[2022-10-16] MEDS ORDERED: ACET-683 PO (16:19)
[2022-10-16] MEDS ORDERED: XARE20TA PO (16:19)
[2022-10-16] MEDS ORDERED: FURO20TA2 PO (16:19)
[2022-10-16] MEDS ORDERED: CLOT1CRE56 TOP (16:19)
[2022-10-16] MEDS ORDERED: ONDA8TAB8 PO (16:19)
[2022-10-16] MEDS ORDERED: OLOP5DRO9 OU (16:19)
[2022-10-16] MEDS ORDERED: MAGN400T2 PO (16:19)
[2022-10-16] MEDS ORDERED: OXYC15TA66 PO ×2 (16:19)
[2022-10-16] MEDS ORDERED: MILKSUS3 PO (16:27)
[2022-10-16] MEDS ORDERED: BISA10SU PR (16:27)
[2022-10-16] MEDS ORDERED: PROC10TA5 PO (16:29)
[2022-10-16] MEDS ORDERED: HOME MED LIST COMPLETE! XX SCH (16:30)
[2022-10-16] MEDS ORDERED: ONDANSETRON 4MG ORAL DISINTEGRATING TAB PO PRN (17:00)
[2022-10-16] MEDS ORDERED: PROCHLORPERAZINE 5MG TAB PO PRN (17:00)
[2022-10-16] MEDS ORDERED: MAGNESIUM OXIDE 400MG TAB (MAG-OX) PO PRN (17:00)
[2022-10-16] MEDS ORDERED: MIRALAX *UNIT DOSE* 17GM PACKET PO PRN (17:00)
[2022-10-16] MEDS ORDERED: BISACODYL 10MG SUPP PR PRN (17:00)
[2022-10-16] MEDS ORDERED: OXYC-1 PO (17:15)
[2022-10-16] MEDS: DOXYCYCLINE HYCLATE 100 MG in D5W MINI-BAG PLUS 100 ML IV SCH (17:43)
[2022-10-16 20:00] VITALS: BP 97/67
[2022-10-16] MEDS: PIPERACILLIN/TAZOBACTAM SOD 4.5 GM in D5W MINI-BAG PLUS 50 ML IV SCH (20:59)
[2022-10-16 21:08] VITALS: BP 102/80
[2022-10-16] MEDS: oxyCODONE 15MG CR TAB PO SCH (21:08)
[2022-10-17] VITALS (7 sets, daily range): BP systolic 93–110; BP diastolic 55–63
[2022-10-17] MEDS: PIPERACILLIN/TAZOBACTAM SOD 4.5 GM in D5W MINI-BAG PLUS 50 ML IV SCH ×4 (03:43→19:47)
[2022-10-17] MEDS: DOXYCYCLINE HYCLATE 100 MG in D5W MINI-BAG PLUS 100 ML IV SCH ×2 (04:52→17:25)
[2022-10-17] MEDS: guaiFENesin ER 600 MG TAB PO SCH ×2 (04:55→10:14)
[2022-10-17 05:24] LABS: HEMATOCRIT 38.7 % (42.0-52.0); HEMOGLOBIN 12.1 g/dl (13.5-17.5); MEAN CORPUSCULAR HEMOGLOBIN 28.6 pg (27.0-33.0); MEAN CORPUSCULAR HGB CONC 31.3 g/dl (32.0-36.5); MEAN CORPUSCULAR VOLUME 91.5 fl (80.0-96.0); PLATELET COUNT, AUTOMATED 507 10^3/uL (150-450); RED BLOOD COUNT 4.23 10^6/uL (4.30-6.10); WHITE BLOOD COUNT 23.5 10^3/uL (4.0-10.0)
[2022-10-17 05:49] LABS: BLOOD UREA NITROGEN 29 MG/DL (9-23); CALCIUM LEVEL 7.8 MG/DL (8.3-10.6); CARBON DIOXIDE LEVEL 28 MMOL/L (20-31); CHLORIDE LEVEL 100 MMOL/L (98-107); CREATININE FOR GFR 0.83 MG/DL (0.70-1.30); GLOMERULAR FILTRATION RATE > 60.0 (>42); GLUCOSE, FASTING 122 MG/DL (74-106); POTASSIUM SERUM 5.3 MMOL/L (3.5-5.1); SODIUM LEVEL 136 MMOL/L (136-145)
[2022-10-17] MEDS: SODIUM CHLORIDE 0.9% INJ 10 ML SYR IV PRN ×2 (06:49→21:34)
[2022-10-17] MEDS ORDERED: RIVAROXABAN 20MG TAB (XARELTO) PO SCH (08:00)
[2022-10-17] MEDS ORDERED: IPRATROPIUM 0.5MG/ALBUTEROL 2.5MG INH SOL UD 3ML (DUONEB) NEB PRN (09:30)
[2022-10-17] MEDS: FINASTERIDE 5MG TAB PO SCH (10:14)
[2022-10-17] MEDS: FUROSEMIDE 20 MG TAB PO SCH (10:14)
[2022-10-17] MEDS: OMEPRAZOLE 20MG CAP PO SCH (10:14)
[2022-10-17] MEDS: MOM 30ML SUSPENSION UDC PO SCH (10:14)
[2022-10-17] MEDS: FLUoxetine 20MG CAP PO SCH (10:15)
[2022-10-17] MEDS: oxyCODONE 15MG CR TAB PO SCH ×2 (10:15→21:33)
[2022-10-17 13:30] LABS: APPEARANCE, BODY FLUID HAZY (CLEAR); ASCITES FL COLOR YELLOW (COLORLESS); SOURCE, BODY FLUID ASCITES
[2022-10-17] MEDS: SODIUM CHLORIDE 0.9% INJ 10 ML SYR IV SCH (13:31)
[2022-10-17] MEDS: IPRATROPIUM 0.5MG/ALBUTEROL 2.5MG INH SOL UD 3ML (DUONEB) NEB SCH ×2 (13:50→19:45)
[2022-10-17] MEDS: SOLIFENACIN 5 MG TAB PO SCH (13:53)
[2022-10-17] MEDS: oxyCODONE 5MG TAB PO PRN (13:58)
[2022-10-17 14:04] LABS: SOURCE, BODY FLUID ALBUMIN ASCITES
[2022-10-17 14:09] LABS: SOURCE, BODY FLUID GLUCOSE ASCITES
[2022-10-17 14:12] LABS: SOURCE, BODY FLUID TOT PROTEIN ASCITES; TOTAL PROTEIN, BODY FLUID 2.2 G/DL (NOT ESTABLISHED)
[2022-10-17] MEDS ORDERED: LORazepam 1 MG TAB PO PRN (17:40)
[2022-10-17] MEDS ORDERED: SCOPOLAMINE 1MG TRANSDERMAL PATCH TOP PRN (17:40)
[2022-10-17] MEDS ORDERED: ONDANSETRON 4MG 2ML VIAL IV PRN (17:40)
[2022-10-17] MEDS ORDERED: ONDANSETRON 4MG ORAL DISINTEGRATING TAB PO PRN (17:40)
[2022-10-17] MEDS ORDERED: ATROPINE SULFATE 1% OPHTH SOLN 2ML BTL SL PRN (17:40)
[2022-10-17] MEDS ORDERED: HYOSCYAMINE SULFATE 0.125 MG SUBL TABLET PO PRN (17:40)
[2022-10-17] MEDS ORDERED: LORazepam 2 MG/ML 1ML VIAL IV PRN (17:40)
[2022-10-17] MEDS ORDERED: FLEET ENEMA PR PRN (17:40)
[2022-10-17] MEDS ORDERED: ACETAMINOPHEN 650MG SUPP PR PRN (17:40)
[2022-10-17] MEDS ORDERED: BISACODYL 10MG SUPP PR PRN (17:40)
[2022-10-17] MEDS ORDERED: MORPHINE 2 MG/ML 1ML VIAL IV PRN (17:40)
[2022-10-18] MEDS: IPRATROPIUM 0.5MG/ALBUTEROL 2.5MG INH SOL UD 3ML (DUONEB) NEB SCH ×2 (01:12→06:05)
[2022-10-18] MEDS: oxyCODONE 5MG TAB PO PRN (01:31)
[2022-10-18] MEDS: PIPERACILLIN/TAZOBACTAM SOD 4.5 GM in D5W MINI-BAG PLUS 50 ML IV SCH ×2 (01:32→08:49)
[2022-10-18] MEDS: SODIUM CHLORIDE 0.9% INJ 10 ML SYR IV PRN ×2 (03:06→10:51)
[2022-10-18] MEDS: oxyCODONE 15MG CR TAB PO SCH (08:50)
[2022-10-18] MEDS: SOLIFENACIN 5 MG TAB PO SCH (08:51)
[2022-10-18] MEDS: MOM 30ML SUSPENSION UDC PO SCH (08:51)
[2022-10-18] MEDS: OMEPRAZOLE 20MG CAP PO SCH (08:51)
[2022-10-18] MEDS: SODIUM CHLORIDE 0.9% INJ 10 ML SYR IV SCH (08:52)
[2022-10-18] MEDS: FINASTERIDE 5MG TAB PO SCH (08:52)
[2022-10-18] MEDS: FUROSEMIDE 20 MG TAB PO SCH (08:52)
[2022-10-18] MEDS: FLUoxetine 20MG CAP PO SCH (08:52)
[2022-10-19 14:09] LABS: BODY FLUID CULTURE Not indicated. (.); LEGIONELLA ANTIGEN URINE Negative (Negative); ORGANISM ID Not indicated. (.); SPECIMEN SOURCE Urine (.); URINE STREP PNEUMONIAE ANTIGEN Negative (Negative)
== END 2022-10-18 11:35 | DRG 177 ==
LOC: M PCU 13:38
PROVIDERS: ADMIT Student in an Organized Health Care Education/Training Program; ATTEND Internal Medicine
PROC: 0W9G3ZZ Drainage of Peritoneal Cavity, Percutaneous Approach (ICD-10-PCS; principal; 2022-10-17 14:00)
DX: J15.211 Pneumonia due to Methicillin susceptible Staphylococcus aureus (principal); J96.21 Acute and chronic respiratory failure with hypoxia; J44.0 Chronic obstructive pulmonary disease with (acute) lower respiratory infection; R18.0 Malignant ascites; C18.9 Malignant neoplasm of colon, unspecified; C78.00 Secondary malignant neoplasm of unspecified lung; C78.7 Secondary malignant neoplasm of liver and intrahepatic bile duct; I27.82 Chronic pulmonary embolism; C79.89 Secondary malignant neoplasm of other specified sites; J91.0 Malignant pleural effusion; Z66 Do not resuscitate; Z51.5 Encounter for palliative care; I10 Essential (primary) hypertension; N40.0 Benign prostatic hyperplasia without lower urinary tract symptoms; K21.9 Gastro-esophageal reflux disease without esophagitis; L89.152 Pressure ulcer of sacral region, stage 2; F32.A Depression, unspecified; F41.9 Anxiety disorder, unspecified; E11.40 Type 2 diabetes mellitus with diabetic neuropathy, unspecified; E78.5 Hyperlipidemia, unspecified; M79.2 Neuralgia and neuritis, unspecified; J15.3 Pneumonia due to streptococcus, group B; G47.00 Insomnia, unspecified; Z92.3 Personal history of irradiation; Z99.81 Dependence on supplemental oxygen; Z87.891 Personal history of nicotine dependence; Z79.891 Long term (current) use of opiate analgesic; Z79.01 Long term (current) use of anticoagulants; Z79.899 Other long term (current) drug therapy